=== PATIENT | male | born 1970 | race Two or more races ===

== ENCOUNTER 2019-03-22 09:00 | Inpatient (IN) | payer OTHER ==
[2019-03-22] MEDS ORDERED: THIAMINE HCL 200 MG/2 ML VIAL IVPB ONE (09:50)
[2019-03-22] MEDS ORDERED: FOLIC ACID INJECTION - 1 MG, THIAMINE HCL 100 MG, MULTIVIT INJECTION ADULT 10 ML in SOD... IVPB ONE (09:50)
[2019-03-22] MEDS ORDERED: LORazepam 2 MG/ML SDV VIAL ONE ×2 (10:13→11:25)
[2019-03-22] MEDS ORDERED: ONDANSETRON 4 MG/2 ML VIAL IVPB ONE (10:14)
[2019-03-22] MEDS ORDERED: ONDANSETRON 4 MG/2 ML VIAL ONE (10:15)
[2019-03-22 10:41] LABS: HEMATOCRIT 33.4 % (35.4-49); HEMOGLOBIN 12.7 GM/dL (11.7-16.9); MCH 37.7 pg (25.7-33.7); MCHC 38.1 g/dl (32.0-35.9); MEAN PLT VOLUME 10.4 fl (7.5-11.1); PLATELET COUNT 116 K/MM3 (134-434); RBC 3.38 M/mm3 (4.00-5.60); RDW 13.8 % (11.9-15.9); WHITE BLOOD COUNT 9.6 K/mm3 (4.0-10.0)
[2019-03-22 10:58] LABS: INR 0.97 (0.83-1.09); PROTHROMBIN TIME (PATIENT) 11.4 SEC (9.7-13.0)
[2019-03-22 11:21] LABS: ALBUMIN 2.5 g/dl (3.4-5.0); ALK PHOS 218 U/L (45-117); ANION GAP 11 MMOL/L (8-16); BILIRUBIN,TOTAL 2.6 mg/dL (0.2-1); BLOOD UREA NITROGEN 17.1 mg/dL (7-18); CHLORIDE 88 mmol/L (98-107); CO2 29 mmol/L (21-32); CREATININE 0.7 mg/dL (0.55-1.3); GLUCOSE,RANDOM 218 mg/dL (74-106); LIPASE 1207 U/L (73-393); MAGNESIUM 1.9 mg/dL (1.8-2.4); POTASSIUM 3.2 mmol/L (3.5-5.1); SODIUM 128 mmol/L (136-145); TOT PROT 5.7 g/dl (6.4-8.2)
[2019-03-22 11:42] LABS: EPI CELLS 7.6 /HPF (0-5/HPF); HYALINE CASTS 18 /lpf (0-8); PH,URINE 5.5 (5.0-8.0); URINE APPEARANCE CLOUDY; URINE BACTERIA 51.6 /hpf (NEGATIVE); URINE BILIRUBIN 2+ (NEGATIVE); URINE COLOR ORANGE; URINE GLUCOSE (UA) NEGATIVE (NEGATIVE); URINE KETONE TRACE (NEGATIVE); URINE LEUK ESTERASE TRACE (NEGATIVE); URINE NITRITE POSITIVE (NEGATIVE); URINE PROTEIN 3+ (NEGATIVE); URINE WBC 2 /hpf (0-5)
[2019-03-22] MEDS ORDERED: POTASSIUM CHLORIDE TABS 20 MEQ TABLET.ER (FP) PO ONE ×2 (11:43→12:07)
[2019-03-22] MEDS ORDERED: CEFTRIAXONE 1,000 MG in DEXTROSE 5%-WATER - 50 ML IVPB ONE (11:44)
[2019-03-22 11:52] LABS: CALCIUM 5.6 mg/dL (8.5-10.1)
[2019-03-22] MEDS ORDERED: LACTATED RINGERS SOLUTION 1,000 ML/1,000 ML INFUS.BAG IV STA (11:54)
[2019-03-22 12:03] LABS: URINE RBC 8.6 /hpf (0-4)
[2019-03-22] MEDS ORDERED: THIAMINE HCL 200 MG/2 ML VIAL ONE (12:07)
[2019-03-22] MEDS ORDERED: CEFTRIAXONE 1 GM/50 ML BAG ONE (12:07)
[2019-03-22] MEDS ORDERED: CALCIUM GLUCONATE 10% - 1,000 MG/10 ML VIAL IVPUSH ONE (12:26)
[2019-03-22 13:14] LABS: ANISOCYTOSIS 1+; MACROCYTOSIS 1+; OVALOCYTE 1+; PLATELET ESTIMATE DECREASED; TARGET CELLS 1+
--- NOTE | 2019-03-22 13:20 | PDOC ---
Documentation entered by Disha Nolen SCRIBE, acting as scribe for Everette Eid MD. Everette Eid MD: This documentation has been prepared by the Tamanna bejarano Sammi, SCRIBE, under my direction and personally reviewed by me in its entirety. I confirm that the documentation accurately reflects all work, treatment, procedures, and medical decision making performed by me. History of Present Illness - General Chief Complaint: Pain Stated Complaint: ABD PAIN / VOMITTING/ALCOHOL WITHDRAWAL Time Seen by Provider: 03/22/19 09:39 - History of Present Illness Initial Comments: 03/22/19 10:03 The patient is a 48 year old male with PMH of alcohol abuse who presents with 1 week of withdrawal like symptoms since recent alcohol cessation. He reports diffuse abdominal pain, mostly to the upper quadrants, constant and sharp in quality. He notes nonbilious, nonbloody vomiting, with anorexia and decreased PO. The patient also reports upper extremity tremors. He reports he previously tried quitting 2 years ago without success. The patient is very anxious upon giving history. Past History - Past Medical History Allergies/Adverse Reactions: Allergies Allergy/AdvReac Type Severity Reaction Status Date / Time No Known Allergies Allergy Verified 03/22/19 09:29 COPD: No Other medical history: alcohol abuse - Suicide/Smoking/Psychosocial Hx Smoking History: Never smoked Information on smoking cessation initiated: No Hx Alcohol Use: Yes (last use a week ago) Drug/Substance Use Hx: No Review of Systems - Review of Systems Comments:: 03/22/19 10:05 CONSTITUTIONAL: (+)tremors. No fever, no chills, no fatigue EYES: No visual changes ENT: No ear pain, no sore throat CARDIOVASCULAR: No chest pain, no palpitations RESPIRATORY: No cough, no SOB GI: (+)abdominal pain (+)vomit. No constipation, no diarrhea GENITOURINARY: No dysuria, no frequency, no hematuria MUSKULOSKELETAL: No backpain, no joint pain, no myalgias SKIN: No rash NEURO: No headache *Physical Exam - Vital Signs Last Vital Signs Temp Pulse Resp BP Pulse Ox 99 F 107 H 19 152/99 99 03/22/19 09:27 03/22/19 09:27 03/22/19 09:27 03/22/19 09:27 03/22/19 09:27 Heart Score/ECG Review - ECG Impressions Comment:: 03/22/19 11:35 normal sinus rhythm normal ECG ED Treatment Course - LABORATORY CBC & Chemistry Diagram: 03/22/19 10:29 03/22/19 10:29 - ADDITIONAL ORDERS Additional order review: Laboratory Results 03/22/19 03/22/19 03/22/19 10:52 10:29 10:29 PT with INR 11.40 INR 0.97 Sodium Potassium Chloride Carbon Dioxide Anion Gap BUN Creatinine Est GFR (CKD-EPI)AfAm Est GFR (CKD-EPI)NonAf Random Glucose Calcium Magnesium Cancelled Total Bilirubin AST ALT Alkaline Phosphatase Total Protein Albumin Lipase Cancelled Urine Color [place] Urine Appearance Cloudy Urine pH 5.5 Ur Specific [place] 1.041 H Urine Protein 3+ H Urine Glucose (UA) Negative Urine Ketones Trace H Urine Blood 1+ H Urine Nitrite Positive H Urine Bilirubin 2+ H Urine Urobilinogen 1.0 Ur Leukocyte Esterase Trace Urine WBC (Auto) 2 Urine RBC (Auto) 8.6 Urine Casts (Auto) 18 U Pathogenic Cast Auto None seen U Epithel Cells (Auto) 7.6 Urine Bacteria (Auto) 51.6 03/22/19 10:29 PT with INR INR Sodium 128 L Potassium 3.2 L Chloride 88 L Carbon Dioxide 29 Anion Gap 11 BUN 17.1 Creatinine 0.7 Est GFR (CKD-EPI)AfAm 130.25 Est GFR (CKD-EPI)NonAf 112.38 Random Glucose 218 H Calcium 5.6 L* Magnesium 1.9 Total Bilirubin 2.6 H AST No Result Required. ALT No Result Required. Alkaline Phosphatase 218 H Total Protein 5.7 L Albumin 2.5 L Lipase 1207 H Urine Color Urine Appearance Urine pH Ur Specific [place] Urine Protein Urine Glucose (UA) Urine Ketones Urine Blood Urine Nitrite Urine Bilirubin Urine Urobilinogen Ur Leukocyte Esterase Urine WBC (Auto) Urine RBC (Auto) Urine Casts (Auto) U Pathogenic Cast Auto U Epithel Cells (Auto) Urine Bacteria (Auto) 03/22/19 10:29 RBC 3.38 L MCV 99.0 H MCHC 38.1 H RDW 13.8 MPV 10.4 Neutrophils % No Result Required. Lymphocytes % No Result Required. - RADIOLOGY Radiology Studies Ordered: Category Date Time Status ABDOMEN & PELVIS CT WITH CONTR [CT] Stat CT Scan 03/22/19 11:55 Ordered - Medications Given in the ED: ED Medications Discontinued Medications Generic Name Dose Route Start Last Admin Trade Name Jazzmine PRN Reason Stop Dose Admin Lactated Ringer's 1,000 ml in 1,000 mls @ 1,000 mls/hr 03/22/19 11:54 12:16 Lactated Ringers Solution IV 03/22/19 12:53 1,000 mls/hr ONCE STA Administration Lorazepam 2 mg 03/22/19 09:50 03/22/19 10:27 Ativan Injection - IVPUSH 03/22/19 09:51 2 mg ONCE ONE Administration Lorazepam 2 mg 03/22/19 11:21 03/22/19 11:36 Ativan Injection - IVPUSH 03/22/19 11:22 2 mg ONCE ONE Administration Ondansetron HCl 8 mg 03/22/19 10:14 03/22/19 10:27 Zofran Injection IVPB 03/22/19 10:15 8 mg ONCE ONE Administration Potassium Chloride 40 meq 03/22/19 11:43 03/22/19 12:16 K-Dur - PO 03/22/19 11:44 40 meq ONCE ONE Administration Thiamine HCl 200 mg 03/22/19 09:50 03/22/19 11:50 Vitamin B1 Injection - IVPB 03/22/19 09:51 200 mg ONCE ONE Administration Medical Decision Making - Medical Decision Making 03/22/19 13:16 pt is anxious appearing 48 y/o male with hx/o etoh abuse who presents with signs ad sxs of acute etoh withdrawal and possible acute pancreatitis. will administer ativan for withdrawal to mild sedation and resolution of tachycardia and tremors. will administer thiamine, mvi, folic acid. will agressively rescuss with iv fluids. will address electrolyte abnormalities. will obtain ct abd -eplvis to r/o pseudocyst. will admit. *DC/Admit/Observation/Transfer Diagnosis at time of Disposition: Hypokalemia, Hypocalcemia Acute pancreatitis Qualifiers: Pancreatitis type: alcohol induced Acute pancreatitis complication: unspecified Qualified Code(s): K85.20 - Alcohol induced acute pancreatitis without necrosis or infection Alcohol withdrawal Qualifiers: Complication of substance-induced condition: with unspecified complication Qualified Code(s): F10.239 - Alcohol dependence with withdrawal, unspecified - Discharge Dispostion Condition at time of disposition: Fair Decision to Admit order: Yes - Referrals - Patient Instructions - Post Discharge Activity
[2019-03-22] MEDS ORDERED: CALCIUM GLUCONATE 10% - 1,000 MG/10 ML VIAL ONE (14:37)
--- NOTE | 2019-03-22 15:08 | HP ---
CHIEF COMPLAINT: abdominal pain for a week, worse yesterday with vomiting and today PCP: none HISTORY OF PRESENT ILLNESS: Patient is a 48 year old male with a significant past medical history of ETOH abuse. He reports that he had a withdrawal seizure 2 years ago and non since. He tells me his last drink was last week and cut out drinking on his own because he started to feel worse in the last few weeks. He has been weaker in the last two days and was not able to get up and go to work. He began vomiting all day yesterday, and all day today and was unable to keep anything down. He says the color of his vomitus was yellow, and denies coughing up blood. He reports diffuse abdominal pain, mostly to the upper quadrants, constant and sharp in quality. He notes anorexia and decreased PO intake. The patient also reports upper extremity tremors. ER course was notable for: (1) platelets 116 (2) CTAP: acute pancreatitis, some small area of necrosis (3) NA 128 (4) K. 3.2 (5) 88 cloride (6) CA 5.6 (7) unable to get liver enzymes 2/2 to lipemic sample. will re-attempt in am. 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 ETOH abuse, withdrawal seizures. Social History: Smoking: denies Alcohol: drank 1 week ago, has stopped on his own. Drugs: denies. Family History: Allergies No Known Allergies Allergy (Verified 03/22/19 09:29) PHYSICAL EXAMINATION Vital Signs - 24 hr 03/22/19 03/22/19 09:27 10:22 Temperature 99 F Pulse Rate 107 H Pulse Rate [ 118 H Right Radial] Respiratory 19 18 Rate Blood Pressure 152/99 Blood Pressure 117/79 [Left Arm] O2 Sat by Pulse 99 98 Oximetry (%) GENERAL: Awake, alert, and fully oriented, anxious HEAD: Normal with no signs of trauma. right eye trauma/blindness 2 years ago - work accident. EYES: right eye trauma/blindness 2 years ago - work accident. EARS, NOSE, THROAT: Ears normal, nares patent, oropharynx clear without exudates. dry mucous membranes. NECK: Normal range of motion, supple without lymphadenopathy, JVD, or masses. LUNGS: Breath sounds equal, clear to auscultation bilaterally. HEART: Regular rate and rhythm ABDOMEN: Soft, nontender, not distended, normoactive bowel sounds, no guarding, no rebound, no masses. No hepatomegaly or splenomegaly. MUSCULOSKELETAL: Normal range of motion at all joints. No bony deformities or tenderness. No CVA tenderness. UPPER EXTREMITIES: No peripheral edema. left upper arm mass? lipoma? LOWER EXTREMITIES: No peripheral edema. NEUROLOGICAL: Normal speech. Normal gait. PSYCHIATRIC: anxious, tremorous Laboratory Results - last 24 hr 03/22/19 03/22/19 03/22/19 10:29 10:29 10:29 WBC 9.6 RBC 3.38 L Hgb 12.7 Hct 33.4 L MCV 99.0 H MCH 37.7 H MCHC 38.1 H RDW 13.8 Plt Count 116 L MPV 10.4 Neutrophils % No Result Required. Neutrophils % (Manual) 68.3 Band Neutrophils % 6.9 Lymphocytes % No Result Required. Lymphocytes % (Manual) 12.9 Monocytes % (Manual) 11 H Eosinophils % (Manual) 0.0 Basophils % (Manual) 0.0 Myelocytes % (Man) 0 Promyelocytes % (Man) 0 Blast Cells % (Manual) 0 Nucleated RBC % 0 Metamyelocytes 0 Hypochromia 0 Platelet Estimate Decreased Polychromasia 0 Poikilocytosis 0 Anisocytosis 1+ Microcytosis 0 Macrocytosis 1+ Target Cells 1+ Ovalocytes 1+ PT with INR INR Sodium 128 L Potassium 3.2 L Chloride 88 L Carbon Dioxide 29 Anion Gap 11 BUN 17.1 Creatinine 0.7 Est GFR (CKD-EPI)AfAm 130.25 Est GFR (CKD-EPI)NonAf 112.38 Random Glucose 218 H Calcium 5.6 L* Magnesium 1.9 Cancelled Total Bilirubin 2.6 H AST No Result Required. ALT No Result Required. Alkaline Phosphatase 218 H Total Protein 5.7 L Albumin 2.5 L Lipase 1207 H Cancelled Urine Color Urine Appearance Urine pH Ur Specific [place] Urine Protein Urine Glucose (UA) Urine Ketones Urine Blood Urine Nitrite Urine Bilirubin Urine Urobilinogen Ur Leukocyte Esterase Urine WBC (Auto) Urine RBC (Auto) Urine Casts (Auto) U Pathogenic Cast Auto U Epithel Cells (Auto) Urine Bacteria (Auto) 03/22/19 03/22/19 10:29 10:52 WBC RBC Hgb Hct MCV MCH MCHC RDW Plt Count MPV Neutrophils % Neutrophils % (Manual) Band Neutrophils % Lymphocytes % Lymphocytes % (Manual) Monocytes % (Manual) Eosinophils % (Manual) Basophils % (Manual) Myelocytes % (Man) Promyelocytes % (Man) Blast Cells % (Manual) Nucleated RBC % Metamyelocytes Hypochromia Platelet Estimate Polychromasia Poikilocytosis Anisocytosis Microcytosis Macrocytosis Target Cells Ovalocytes PT with INR 11.40 INR 0.97 Sodium Potassium Chloride Carbon Dioxide Anion Gap BUN Creatinine Est GFR (CKD-EPI)AfAm Est GFR (CKD-EPI)NonAf Random Glucose Calcium Magnesium Total Bilirubin AST ALT Alkaline Phosphatase Total Protein Albumin Lipase Urine Color [place] Urine Appearance Cloudy Urine pH 5.5 Ur Specific [place] 1.041 H Urine Protein 3+ H Urine Glucose (UA) Negative Urine Ketones Trace H Urine Blood 1+ H Urine Nitrite Positive H Urine Bilirubin 2+ H Urine Urobilinogen 1.0 Ur Leukocyte Esterase Trace Urine WBC (Auto) 2 Urine RBC (Auto) 8.6 Urine Casts (Auto) 18 U Pathogenic Cast Auto None seen U Epithel Cells (Auto) 7.6 Urine Bacteria (Auto) 51.6 ASSESSMENT/PLAN: Patient is a 48 year old male with a significant past medical history of ETOH abuse who comes in with weakness, abdominal pain with vomiting and found to hve acute pancreatitis with a lipase of 1207 along with small necrosis of the pancreas. . Problem List - Problem (1) Acute pancreatitis Assessment/Plan: CTAP 03/22/19: acute pancreatitis with small area of necrosis per imaging. Start on meropenem with aggressive IV hydration Keep NPO GI/Surgery consulted for further plans Code(s): K85.90 - ACUTE PANCREATITIS WITHOUT NECROSIS OR INFECTION, UNSP Qualifiers: Pancreatitis type: alcohol induced Acute pancreatitis complication: unspecified Qualified Code(s): K85.20 - Alcohol induced acute pancreatitis without necrosis or infection (2) Necrosis of pancreas Code(s): K86.89 - OTHER SPECIFIED DISEASES OF PANCREAS (3) Thrombocytopenia Assessment/Plan: Monitor with daily labs in the abstinence of alcohol Code(s): D69.6 - THROMBOCYTOPENIA, UNSPECIFIED (4) Elevated lipase Assessment/Plan: patient with elevated lipase of 1207 on admission, found to have acute pancreatitis on imaging with necrosis. GI and surgery consulted Code(s): R74.8 - ABNORMAL LEVELS OF OTHER SERUM ENZYMES (5) Proteinuria Assessment/Plan: +3 urine protein on UA. repeat UA Code(s): R80.9 - PROTEINURIA, UNSPECIFIED (6) Alcohol withdrawal Assessment/Plan: Denies recent drinking, quit drinking on his own 1 week about w/o seizure activity per patient. moderate CIWA score presently but will need monitoring for ETOH w/drawal. has ativan ordered prn. given banana bag and will continue with IVF hydration has electrolyte imbalance and cmp to be repeated after banana bag given. Code(s): F10.239 - ALCOHOL DEPENDENCE WITH WITHDRAWAL, UNSPECIFIED Qualifiers: Complication of substance-induced condition: with unspecified complication Qualified Code(s): F10.239 - Alcohol dependence with withdrawal, unspecified (7) Hypocalcemia Assessment/Plan: monitor daily Code(s): E83.51 - HYPOCALCEMIA (8) Hypokalemia Code(s): E87.6 - HYPOKALEMIA (9) Hyponatremia Assessment/Plan: repeat cmp. currently low sodium at 128. Code(s): E87.1 - HYPO-OSMOLALITY AND HYPONATREMIA (10) Prophylactic measure Assessment/Plan: fen LR @ 100 NPO ice chips intermittently full code protonix Code(s): Z29.9 - ENCOUNTER FOR PROPHYLACTIC MEASURES, UNSPECIFIED Visit type - Emergency Visit Emergency Visit: Yes ED Registration Date: 03/22/19 Care time: The patient presented to the Emergency Department on the above date and was hospitalized for further evaluation of their emergent condition. - New Patient This patient is new to me today: No - Critical Care Critical Care patient: No CIWA Score Nausea/Vomitin-Int. Nausea w/Dry Heave Muscle Tremors: 1-None Visible, but [place] Anxiety: 1-Mildly Anxious Agitation: 0-Normal Activity Paroxysmal Sweats: No Perspiration Orientation: 0-Oriented Tacttile Disturbances: 0-None Auditory Disturbances: 0-None Visual Disturbances: 0-None Headache: 0-None Present CIWA-Ar Total Score: 6 - Admission Criteria [facility]ASAS Guidelines: Admission for Medically Managed Detox: Requires at least one of the followin. CIWA greater than 12 2. Seizures within the past 24 hours 3. Delirium tremens within the past 24 hours 4. Hallucinations within the past 24 hours 5. Acute intervention needed for co occurring medical disorder 6. Acute intervention needed for co occurring psychiatric disorder 7. Severe withdrawal that cannot be handled at a lower level of care (continued vomiting, continued diarrhea, abnormal vital signs) requiring intravenous medication and/or fluids 8.
--- NOTE | 2019-03-22 15:08 | EKG ---
Test Reason : Blood Pressure : / mmHG Vent. Rate : 100 BPM Atrial Rate : 100 BPM P-R Int : 164 ms QRS Dur : 096 ms QT Int : 346 ms P-R-T Axes : 033 034 039 degrees QTc Int : 446 ms NORMAL SINUS RHYTHM NORMAL ECG NO PREVIOUS ECGS AVAILABLE Confirmed by DAWSON SEBASTIAN MD ([id number]) on 03/22/2019 3:07:31 PM Referred By: Confirmed By:DAWSON SEBASTIAN MD
[2019-03-22] MEDS: LACTATED RINGERS SOLUTION 1,000 ML/1,000 ML INFUS.BAG IV SCH (15:11)
[2019-03-22] MEDS ORDERED: LORazepam 2 MG/ML SDV VIAL IVPUSH PRN (16:08)
[2019-03-22] MEDS ORDERED: MEROPENEM 1 GM in DEXTROSE 5%-WATER 100 ML IVPB ONE ×2 (16:22→16:25)
[2019-03-22] MEDS ORDERED: PNEUMOC 13-VAL CONJ-DIP CRM/PF 0.5 ML DISP.SYRIN IM ONE (16:31)
[2019-03-22] MEDS ORDERED: PNEUMOCOCCAL 23 VACCINE 0.5 ML VIAL IM ONE (16:45)
--- NOTE | 2019-03-22 17:02 | CONSULT ---
- Consultation REQUESTING PROVIDER: Emiliana Devine NP CONSULT REQUEST: We have been asked to surgically evaluate this patient for acute pancreatitis. PCP:Emiliana Devine NP HISTORY OF PRESENT ILLNESS: MARY who is a 48 y/o male w/a h/o EtOHism who presented 1 week after his last EtOH intake w/nausea and vomiting and generalized abdominal pain; he relates no other hx. PMHx: PSHx: Allergies Allergy/AdvReac Type Severity Reaction Status Date / Time No Known Allergies Allergy Verified 03/22/19 09:29 REVIEW OF SYSTEMS: CONSTITUTIONAL: Absent: fever, chills, diaphoresis, generalized weakness, malaise, loss of appetite, weight change CARDIOVASCULAR: Absent: chest pain, syncope, palpitations, irregular heart rate, lightheadedness , peripheral edema RESPIRATORY: Absent: cough, shortness of breath, dyspnea with exertion, wheezing, stridor, hemoptysis GASTROINTESTINAL: Absent: abdominal pain, abdominal distension, nausea, vomiting, diarrhea, constipation, melena, hematochezia GENITOURINARY: Absent: dysuria, frequency, urgency, hesitancy, hematuria, flank pain, genital pain MUSCULOSKELETAL: Absent: myalgia, arthralgia, joint swelling, back pain, neck pain SKIN: Absent: rash, itching, pallor HEMATOLOGIC/IMMUNOLOGIC: Absent: easy bleeding, easy bruising, lymphadenopathy NEUROLOGIC: Absent: headache, focal weakness, paresthesias, dizziness, unsteady gait, seizure, mental status changes, bladder or bowel incontinence PSYCHIATRIC: Absent: anxiety, depression, suicidal or homicidal ideation, hallucinations. PHYSICAL EXAM: GENERAL: Awake, alert, and fully oriented, in no acute distress. HEAD: Normal with no signs of trauma. EYES: PERRL, sclera anicteric, conjunctiva clear. NECK: Normal ROM, supple without lymphadenopathy, JVD, or masses. LUNGS: Clear to auscultation bilat anteriorly. No wheezes, and no crackles. No accessory muscle use. HEART: Regular rate and rhythm. No murmurs ABDOMEN: Soft, nontender, not distended, normoactive bowel sounds, no guarding, no rebound, no masses. No organomegaly. MUSCULOSKELETAL: Normal ROM at all joints. No bony deformities or tenderness. No CVA tenderness. UPPER EXTREMITIES: 2+ pulses, warm, well-perfused. No cyanosis. Cap refill <2 seconds. No peripheral edema. LOWER EXTREMITIES: 2+ pulses, warm, well-perfused. No calf tenderness. No peripheral edema. NEUROLOGICAL: Normal speech, gait not observed. PSYCH: Cooperative. Good eye contact. Appropriate mood and affect. SKIN: Warm, dry, normal turgor, no rashes or lesions noted. Vital Signs Temperature 98.2 F 03/22/19 16:18 Pulse Rate 80 03/22/19 16:18 Respiratory Rate 18 03/22/19 16:18 Blood Pressure 144/87 03/22/19 16:18 O2 Sat by Pulse Oximetry (%) 98 03/22/19 15:09 Lab Results WBC 9.6 K/mm3 (4.0-10.0) 03/22/19 10:29 RBC 3.38 M/mm3 (4.00-5.60) L 03/22/19 10:29 Hgb 12.7 GM/dL (11.7-16.9) 03/22/19 10:29 Hct 33.4 % (35.4-49) L 03/22/19 10:29 MCV 99.0 fl (80-96) H 03/22/19 10:29 MCHC 38.1 g/dl (32.0-35.9) H 03/22/19 10:29 RDW 13.8 % (11.9-15.9) 03/22/19 10:29 Plt Count 116 K/MM3 (134-434) L 03/22/19 10:29 Sodium 128 mmol/L (136-145) L 03/22/19 10:29 Potassium 3.2 mmol/L (3.5-5.1) L 03/22/19 10:29 Chloride 88 mmol/L (98-107) L 03/22/19 10:29 Carbon Dioxide 29 mmol/L (21-32) 03/22/19 10:29 Anion Gap 11 MMOL/L (8-16) 03/22/19 10:29 BUN 17.1 mg/dL (7-18) 03/22/19 10:29 Creatinine 0.7 mg/dL (0.55-1.3) 03/22/19 10:29 Random Glucose 218 mg/dL (74-106) H 03/22/19 10:29 Calcium 5.6 mg/dL (8.5-10.1) L* 03/22/19 10:29 INR 0.97 (0.83-1.09) 03/22/19 10:29 CT a/p reviewed and c/w acute pancraeatitis and related findings including possible focal necrosis. IMP: EtOH induced acute pancreatitis PLAN: Suggest NPO/IVF/serial exams and blood work; will need f/u x-sectional imaging (CT scan ); check abdominal US to r/o cholelithiasis; will f/u. Vic Shipley MD FACS
[2019-03-22] MEDS ORDERED: MEROPENEM 1 GM VIAL (RESTRICTED TO ID) IVPB ONE (17:37)
[2019-03-22] MEDS ORDERED: DEXTROSE 5%-WATER 100 ML IVPB ONE (17:37)
[2019-03-22 20:43] LABS: ALBUMIN 2.3 g/dl (3.4-5.0); ALK PHOS 199 U/L (45-117); ANION GAP 9 MMOL/L (8-16); BILIRUBIN,TOTAL 2.4 mg/dL (0.2-1); BLOOD UREA NITROGEN 11.8 mg/dL (7-18); CHLORIDE 92 mmol/L (98-107); CO2 29 mmol/L (21-32); CREATININE 0.6 mg/dL (0.55-1.3); GLUCOSE,RANDOM 154 mg/dL (74-106); POTASSIUM 3.7 mmol/L (3.5-5.1); SODIUM 131 mmol/L (136-145); TOT PROT 5.1 g/dl (6.4-8.2)
[2019-03-22 20:53] LABS: CALCIUM 6.9 mg/dL (8.5-10.1)
--- NOTE | 2019-03-22 22:03 | HOSP ---
Subjective - Review of Symptoms Events since last encounter: Hospitalist Encounter Notified by the RN that the lab called for a critical value Ca 6.9 The patient's albumin is 2.3. Calcium corrected is 8.3 Per RN patient is asymptomatic Patient's Ca 5.6 earlier Calcium gluconate 1000mg IV was given in the ED No further orders at this time Will continue to monitor for spasms, tetany and seizures d/w RN Physical Examination Vital Signs: Vital Signs Temperature 98.4 F 03/22/19 18:58 Pulse Rate 92 H 03/22/19 18:58 Respiratory Rate 18 03/22/19 18:58 Blood Pressure 146/89 03/22/19 18:58 O2 Sat by Pulse Oximetry (%) 98 03/22/19 15:09 Labs: CBC, BMP 03/22/19 10:29 03/22/19 17:45 Laboratory Results - last 24 hr 03/22/19 03/22/19 03/22/19 10:29 10:29 10:29 WBC 9.6 RBC 3.38 L Hgb 12.7 Hct 33.4 L MCV 99.0 H MCH 37.7 H MCHC 38.1 H RDW 13.8 Plt Count 116 L MPV 10.4 Neutrophils % No Result Required. Neutrophils % (Manual) 68.3 Band Neutrophils % 6.9 Lymphocytes % No Result Required. Lymphocytes % (Manual) 12.9 Monocytes % (Manual) 11 H Eosinophils % (Manual) 0.0 Basophils % (Manual) 0.0 Myelocytes % (Man) 0 Promyelocytes % (Man) 0 Blast Cells % (Manual) 0 Nucleated RBC % 0 Metamyelocytes 0 Hypochromia 0 Platelet Estimate Decreased Polychromasia 0 Poikilocytosis 0 Anisocytosis 1+ Microcytosis 0 Macrocytosis 1+ Target Cells 1+ Ovalocytes 1+ PT with INR INR Sodium 128 L Potassium 3.2 L Chloride 88 L Carbon Dioxide 29 Anion Gap 11 BUN 17.1 Creatinine 0.7 Est GFR (CKD-EPI)AfAm 130.25 Est GFR (CKD-EPI)NonAf 112.38 POC Glucometer Random Glucose 218 H Calcium 5.6 L* Magnesium 1.9 Cancelled Total Bilirubin 2.6 H AST No Result Required. ALT No Result Required. Alkaline Phosphatase 218 H Creatine Kinase Creatine Kinase Index CK-MB (CK-2) Total Protein 5.7 L Albumin 2.5 L Lipase 1207 H Cancelled Urine Color Urine Appearance Urine pH Ur Specific [place] Urine Protein Urine Glucose (UA) Urine Ketones Urine Blood Urine Nitrite Urine Bilirubin Urine Urobilinogen Ur Leukocyte Esterase Urine WBC (Auto) Urine RBC (Auto) Urine Casts (Auto) U Pathogenic Cast Auto U Epithel Cells (Auto) Urine Bacteria (Auto) 03/22/19 03/22/19 03/22/19 10:29 10:52 17:45 WBC RBC Hgb Hct MCV MCH MCHC RDW Plt Count MPV Neutrophils % Neutrophils % (Manual) Band Neutrophils % Lymphocytes % Lymphocytes % (Manual) Monocytes % (Manual) Eosinophils % (Manual) Basophils % (Manual) Myelocytes % (Man) Promyelocytes % (Man) Blast Cells % (Manual) Nucleated RBC % Metamyelocytes Hypochromia Platelet Estimate Polychromasia Poikilocytosis Anisocytosis Microcytosis Macrocytosis Target Cells Ovalocytes PT with INR 11.40 INR 0.97 Sodium 131 L Potassium 3.7 Chloride 92 L Carbon Dioxide 29 Anion Gap 9 BUN 11.8 Creatinine 0.6 Est GFR (CKD-EPI)AfAm 138.77 Est GFR (CKD-EPI)NonAf 119.73 POC Glucometer Random Glucose 154 H Calcium 6.9 L* Magnesium Total Bilirubin 2.4 H AST No Result Required. ALT No Result Required. Alkaline Phosphatase 199 H Creatine Kinase Creatine Kinase Index CK-MB (CK-2) Total Protein 5.1 L Albumin 2.3 L Lipase Urine Color [place] Urine Appearance Cloudy Urine pH 5.5 Ur Specific [place] 1.041 H Urine Protein 3+ H Urine Glucose (UA) Negative Urine Ketones Trace H Urine Blood 1+ H Urine Nitrite Positive H Urine Bilirubin 2+ H Urine Urobilinogen 1.0 Ur Leukocyte Esterase Trace Urine WBC (Auto) 2 Urine RBC (Auto) 8.6 Urine Casts (Auto) 18 U Pathogenic Cast Auto None seen U Epithel Cells (Auto) 7.6 Urine Bacteria (Auto) 51.6 03/22/19 03/22/19 17:45 21:04 WBC RBC Hgb Hct MCV MCH MCHC RDW Plt Count MPV Neutrophils % Neutrophils % (Manual) Band Neutrophils % Lymphocytes % Lymphocytes % (Manual) Monocytes % (Manual) Eosinophils % (Manual) Basophils % (Manual) Myelocytes % (Man) Promyelocytes % (Man) Blast Cells % (Manual) Nucleated RBC % Metamyelocytes Hypochromia Platelet Estimate Polychromasia Poikilocytosis Anisocytosis Microcytosis Macrocytosis Target Cells Ovalocytes PT with INR INR Sodium Potassium Chloride Carbon Dioxide Anion Gap BUN Creatinine Est GFR (CKD-EPI)AfAm Est GFR (CKD-EPI)NonAf POC Glucometer 81 Random Glucose Calcium Magnesium Total Bilirubin AST ALT Alkaline Phosphatase Creatine Kinase 190 Creatine Kinase Index 1.0 CK-MB (CK-2) 1.9 Total Protein Albumin Lipase Urine Color Urine Appearance Urine pH Ur Specific [place] Urine Protein Urine Glucose (UA) Urine Ketones Urine Blood Urine Nitrite Urine Bilirubin Urine Urobilinogen Ur Leukocyte Esterase Urine WBC (Auto) Urine RBC (Auto) Urine Casts (Auto) U Pathogenic Cast Auto U Epithel Cells (Auto) Urine Bacteria (Auto)
[2019-03-23] MEDS: LACTATED RINGERS SOLUTION 1,000 ML/1,000 ML INFUS.BAG IV SCH ×2 (01:58→12:28)
[2019-03-23] MEDS: IMIPENEM/CILASTATIN SODIUM 500 MG in SODIUM CHLORIDE 100 ML IVPB SCH ×3 (01:59→17:13)
[2019-03-23] MEDS ORDERED: DEXTROSE 50%-WATER - 25 GM/50 ML VIAL IVPUSH ONE (07:01)
[2019-03-23] MEDS ORDERED: DEXTROSE 50%-WATER 25 GM/50 ML DISP.SYRIN ONE (07:01)
[2019-03-23] MEDS ORDERED: PT OWN MED DRAWER 7, Y5N ONE ×2 (09:32→16:56)
--- NOTE | 2019-03-23 11:22 | PN ---
Progress Note, Physician Chief Complaint: still having abdominal pain with nausea, no vomiting has been NPO Denies headaches, still having some tremors (upper body), but no headaches, no vomiting or hallucinations. History of Present Illness: Patient is a 48 year old male with a significant past medical history of ETOH abuse. He reports that he had a withdrawal seizure 2 years ago and non since. He tells me his last drink was last week and cut out drinking on his own because he started to feel worse in the last few weeks. He has been weaker in the last two days and was not able to get up and go to work. He began vomiting two days prior to admission and was unable to keep anything down. He says the color of his vomitus was yellow, and denies coughing up blood. He reports diffuse abdominal pain, mostly to the upper quadrants, constant and sharp in quality. He notes anorexia and decreased PO intake. The patient also reports upper extremity tremors. ER course was notable for: (1) platelets 116 (2) CTAP: acute pancreatitis, some small area of necrosis (3) NA 128 (4) K. 3.2 (5) 88 cloride (6) CA 5.6 (7) unable to get liver enzymes 2/2 to lipemic sample. will re-attempt in am. as well as a lipid panel (8) + urine protein (9) 1207 lipase - Current Medication List Current Medications: Active Medications Lactated Ringer's (Lactated Ringers Solution) 1,000 ml in 1,000 mls @ 100 mls/ hr IV ASDIR LAURA Last Admin: 03/23/19 01:58 Dose: 100 mls/hr Imipenem/Cilastatin Sodium 500 (mg/ Sodium Chloride) 100 mls @ 100 mls/hr IVPB Q8H-IV LAURA; Protocol Last Admin: 03/23/19 10:37 Dose: 100 mls/hr Lorazepam (Ativan Injection -) 1 mg IVPUSH Q6H PRN PRN Reason: WITHDRAWAL(CONT SUBST) - Objective Vital Signs: Vital Signs Temperature 98.9 F 03/23/19 07:51 Pulse Rate 98 H 03/23/19 07:51 Respiratory Rate 15 03/23/19 07:51 Blood Pressure 117/50 L 03/23/19 07:51 O2 Sat by Pulse Oximetry (%) 98 03/22/19 21:00 Constitutional: Yes: No Distress, Calm Eyes: Yes: Other (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) HENT: Yes: Atraumatic Neck: Yes: Supple Cardiovascular: Yes: Regular Rate and Rhythm Respiratory: Yes: Regular, CTA Bilaterally Gastrointestinal: Yes: Soft, Tenderness ...Rectal Exam: Yes: Deferred Genitourinary: Yes: WNL Musculoskeletal: Yes: WNL Extremities: Yes: WNL Edema: No Peripheral Pulses WNL: Yes Integumentary: Yes: WNL Neurological: Yes: Alert, Oriented ...Motor Strength: WNL Psychiatric: Yes: Alert, Oriented Labs: CBC, BMP 03/22/19 10:29 03/22/19 17:45 INR, PTT INR 0.97 (0.83-1.09) 03/22/19 10:29 Problem List - Problems (1) Hypertriglyceridemia Assessment/Plan: Triglyceridemia @ 1400 with elevated cholesterol levels elevated ast/alt patient with acute pancreatitis with small area of necrosis may need insulin drip, therefore transfer to ICU hematology consulted as may need plasmapheresis Code(s): E78.1 - PURE HYPERGLYCERIDEMIA (2) Acute pancreatitis Assessment/Plan: CTAP 03/22/19: acute pancreatitis with small area of necrosis per imaging. On Imipenem per ID. Continue IV hydration and maintain NPO for continued abdominal pain and nausea. GI/Surgery consulted for further plans. ID following. Code(s): K85.90 - ACUTE PANCREATITIS WITHOUT NECROSIS OR INFECTION, UNSP Qualifiers: Pancreatitis type: alcohol induced Acute pancreatitis complication: unspecified Qualified Code(s): K85.20 - Alcohol induced acute pancreatitis without necrosis or infection (3) Necrosis of pancreas Code(s): K86.89 - OTHER SPECIFIED DISEASES OF PANCREAS (4) Thrombocytopenia Assessment/Plan: Monitor with daily labs in the abstinence of alcohol. Maintain bleeding precautions. Code(s): D69.6 - THROMBOCYTOPENIA, UNSPECIFIED (5) Elevated lipase Assessment/Plan: patient with elevated lipase of 1207 on admission, now trending down to 774 He was found to have acute pancreatitis on imaging with small areas of necrosis. Continue to monitor lipase. Code(s): R74.8 - ABNORMAL LEVELS OF OTHER SERUM ENZYMES (6) Proteinuria Assessment/Plan: +3 urine protein on UA. repeat UA and monitor renal function Code(s): R80.9 - PROTEINURIA, UNSPECIFIED (7) Alcohol withdrawal Assessment/Plan: Denies recent drinking, quit drinking on his own 1 week about w/o seizure activity per patient. moderate CIWA score presently but will need monitoring for ETOH w/drawal. has ativan ordered prn. given banana bag and will continue with IVF hydration. Start thiamine, folate when no longer NPO. has electrolyte imbalance and cmp to be repeated after banana bag given. Code(s): F10.239 - ALCOHOL DEPENDENCE WITH WITHDRAWAL, UNSPECIFIED Qualifiers: Complication of substance-induced condition: with unspecified complication Qualified Code(s): F10.239 - Alcohol dependence with withdrawal, unspecified (8) Hypocalcemia Assessment/Plan: monitor daily. corrected calcium 8.3. Code(s): E83.51 - HYPOCALCEMIA (9) Hypokalemia Code(s): E87.6 - HYPOKALEMIA (10) Hyponatremia Assessment/Plan: repeat cmp. currently low sodium at 131. Code(s): E87.1 - HYPO-OSMOLALITY AND HYPONATREMIA (11) Mass of soft tissue of upper arm Assessment/Plan: left arm mass for a few years that has been increasing in size and causing pain and discomfort. Lipoma? Surgery following Code(s): R22.30 - LOCALIZED SWELLING, MASS AND LUMP, UNSPECIFIED UPPER LIMB (12) Prophylactic measure Assessment/Plan: fen ns with K @ 100. NPO ice chips intermittently heparin bid full code protonix Code(s): Z29.9 - ENCOUNTER FOR PROPHYLACTIC MEASURES, UNSPECIFIED Visit type - Emergency Visit Emergency Visit: Yes ED Registration Date: 03/22/19 Care time: The patient presented to the Emergency Department on the above date and was hospitalized for further evaluation of their emergent condition. - New Patient This patient is new to me today: No - Critical Care Critical Care patient: Yes Total Critical Care Time (in minutes): 60 Critical Care Statement: The care of this patient involved high complexity decision making to prevent further life threatening deterioration of the patient 's condition and/or to evaluate & treat vital organ system(s) failure or risk of failure. - Discharge Referral Referred to [facility] No CIWA Score Nausea/Vomitin-Int. Nausea w/Dry Heave Muscle Tremors: 1-None Visible, but [place] Anxiety: 1-Mildly Anxious Agitation: 1-Slight > Activity Paroxysmal Sweats: No Perspiration Orientation: 0-Oriented Tacttile Disturbances: 0-None Auditory Disturbances: 0-None Visual Disturbances: 0-None Headache: 0-None Present CIWA-Ar Total Score: 7 - Admission Criteria [facility] Guidelines: Admission for Medically Managed Detox: Requires at least one of the followin. CIWA greater than 12 2. Seizures within the past 24 hours 3. Delirium tremens within the past 24 hours 4. Hallucinations within the past 24 hours 5. Acute intervention needed for co occurring medical disorder 6. Acute intervention needed for co occurring psychiatric disorder 7. Severe withdrawal that cannot be handled at a lower level of care (continued vomiting, continued diarrhea, abnormal vital signs) requiring intravenous medication and/or fluids 8.
[2019-03-23 12:05] LABS: HEMATOCRIT 30.2 % (35.4-49); HEMOGLOBIN 10.3 GM/dL (11.7-16.9); MCH 33.2 pg (25.7-33.7); MCHC 34.1 g/dl (32.0-35.9); MEAN CELL VOLUME 97.4 fl (80-96); MEAN PLT VOLUME 9.3 fl (7.5-11.1); PLATELET COUNT 120 K/MM3 (134-434); RDW 13.8 % (11.9-15.9); WHITE BLOOD COUNT 7.9 K/mm3 (4.0-10.0)
--- NOTE | 2019-03-23 12:15 | CON.ID ---
Consult - Alcohol/Substance Use Hx Alcohol Use: Yes (last use a week ago) - Smoking History Smoking history: Never smoked Home Medications - Allergies Allergies/Adverse Reactions: Allergies Allergy/AdvReac Type Severity Reaction Status Date / Time No Known Allergies Allergy Verified 03/22/19 09:29 Physical Exam Vital Signs: Vital Signs Temperature 98.9 F 03/23/19 07:51 Pulse Rate 98 H 03/23/19 07:51 Respiratory Rate 15 03/23/19 07:51 Blood Pressure 117/50 L 03/23/19 07:51 O2 Sat by Pulse Oximetry (%) 98 03/22/19 21:00 Labs: CBC, BMP 03/23/19 11:50
[2019-03-23 12:27] LABS: INR 0.93 (0.83-1.09)
[2019-03-23 12:57] LABS: ALBUMIN 2.3 g/dl (3.4-5.0); BILIRUBIN,TOTAL 2.6 mg/dL (0.2-1); BLOOD UREA NITROGEN 7.5 mg/dL (7-18); CREATININE 0.6 mg/dL (0.55-1.3); MAGNESIUM 1.9 mg/dL (1.8-2.4); POTASSIUM 3.5 mmol/L (3.5-5.1); TOT PROT 4.9 g/dl (6.4-8.2)
[2019-03-23] MEDS ORDERED: PNEUMOC 13-VAL CONJ-DIP CRM/PF 0.5 ML DISP.SYRIN IM ONE (13:23)
[2019-03-23] MEDS ORDERED: SODIUM CHLORIDE 0.9%/KCL 20 MEQ/1,000 ML INFUS.BAG IV SCH (13:30)
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
--- NOTE | 2019-03-23 14:34 | CONSULT ---
Consultation: REQUESTING PROVIDER: [facility] CONSULT REQUEST: We have been asked to medically evaluate this patient for acute pancreatitis and hypertriglyceridemia HISTORY OF PRESENT ILLNESS: 48 year old, egyptian-speaking male with a history of alcohol abuse presented for 1 week of weakness, epigastric abdominal pain and vomiting. He was found to have acute pancreatitis with a focus of necrosis on CT and lipase of 1207. He was additionally noted to have a hypertriglyceridemia (1400). Today, patient reports feeling much improved compared to when he presented to the hospital, only noting to have pain in the R of his umbilicus and epigastrum. Denies nausea , vomiting, diarrhea, fevers, chills. Patient reports his last drink was 1 week ago. States that he did go through withdrawals in the past. Hematology consulted for the evaluation and management of hypertriglyceridemia in the setting of acute pancreatitis. Allergies: denies Smoking: never Alcohol: every day, last drink 1 week ago Drugs: never Surgeries: never Family History: denies family history of bleeding disorders, clotting disorders , or cancers, does not know about family history of high cholesterol. 1 healthy brother and several children. REVIEW OF SYSTEMS: CONSTITUTIONAL: Absent: fever, chills, diaphoresis, generalized weakness, malaise, loss of appetite, weight change HEENT: Absent: rhinorrhea, nasal congestion, throat pain, throat swelling, difficulty swallowing, mouth swelling, ear pain, eye pain, visual changes CARDIOVASCULAR: Absent: chest pain, syncope, palpitations, irregular heart rate, lightheadedness , peripheral edema RESPIRATORY: Absent: cough, shortness of breath, dyspnea with exertion, orthopnea, wheezing, stridor, hemoptysis GASTROINTESTINAL:abdominal pain Absent: abdominal distension, nausea, vomiting, diarrhea, constipation, melena , hematochezia GENITOURINARY: Absent: dysuria, frequency, urgency, hesitancy, hematuria, flank pain, genital pain MUSCULOSKELETAL: Absent: myalgia, arthralgia, joint swelling, back pain, neck pain SKIN: Absent: rash, itching, pallor HEMATOLOGIC/IMMUNOLOGIC: Absent: easy bleeding, easy bruising, lymphadenopathy, frequent infections ENDOCRINE: Absent: unexplained weight gain, unexplained weight loss, heat intolerance, cold intolerance NEUROLOGIC: Absent: headache, focal weakness or paresthesias, dizziness, unsteady gait, seizure, mental status changes, bladder or bowel incontinence PSYCHIATRIC: Absent: anxiety, depression, suicidal or homicidal ideation, hallucinations. PHYSICAL EXAMINATION Vital Signs - 24 hr 03/22/19 03/22/19 03/22/19 15:09 16:18 18:58 Temperature 98.8 F 98.2 F 98.4 F Pulse Rate 80 92 H Pulse Rate [ 86 Right Radial] Respiratory 18 18 18 Rate Blood Pressure 144/87 146/89 Blood Pressure 128/79 [Left Arm] O2 Sat by Pulse 98 Oximetry (%) 03/22/19 03/23/19 03/23/19 21:00 02:58 06:00 Temperature 99.4 F 99.9 F H Pulse Rate 96 H 98 H Pulse Rate [ Right Radial] Respiratory 18 20 20 Rate Blood Pressure 120/66 117/63 Blood Pressure [Left Arm] O2 Sat by Pulse 98 Oximetry (%) 03/23/19 03/23/19 07:51 09:00 Temperature 98.9 F Pulse Rate 98 H Pulse Rate [ Right Radial] Respiratory 15 Rate Blood Pressure 117/50 L Blood Pressure [Left Arm] O2 Sat by Pulse 98 Oximetry (%) GENERAL: A&Ox3, no acute distress EYES: R eye blind, clouded, L eye normal ENT: Dry mucus membranes LUNGS: CTA, no wheezes HEART: RRR, no murmurs ABDOMEN: Soft, mildly tender in the epigastrum EXTREMITIES: 2+ pulses, no edema. NEUROLOGICAL: Cranial nerves II-XII intact. Laboratory Results - last 24 hr 03/22/19 03/22/19 03/22/19 17:45 17:45 21:04 WBC RBC Hgb Hct MCV MCH MCHC RDW Plt Count MPV Absolute Neuts (auto) Neutrophils % Lymphocytes % Nucleated RBC % PT with INR INR Sodium 131 L Potassium 3.7 Chloride 92 L Carbon Dioxide 29 Anion Gap 9 BUN 11.8 Creatinine 0.6 Est GFR (CKD-EPI)AfAm 138.77 Est GFR (CKD-EPI)NonAf 119.73 POC Glucometer 81 Random Glucose 154 H Hemoglobin A1c % Calcium 6.9 L* Magnesium Total Bilirubin 2.4 H AST No Result Required. ALT No Result Required. Alkaline Phosphatase 199 H Creatine Kinase 190 Creatine Kinase Index 1.0 CK-MB (CK-2) 1.9 Total Protein 5.1 L Albumin 2.3 L Triglycerides Cholesterol Total LDL Cholesterol HDL Cholesterol Lipase 03/23/19 03/23/19 03/23/19 06:29 07:39 11:37 WBC RBC Hgb Hct MCV MCH MCHC RDW Plt Count MPV Absolute Neuts (auto) Neutrophils % Lymphocytes % Nucleated RBC % PT with INR INR Sodium Potassium Chloride Carbon Dioxide Anion Gap BUN Creatinine Est GFR (CKD-EPI)AfAm Est GFR (CKD-EPI)NonAf POC Glucometer 69 114 90 Random Glucose Hemoglobin A1c % Calcium Magnesium Total Bilirubin AST ALT Alkaline Phosphatase Creatine Kinase Creatine Kinase Index CK-MB (CK-2) Total Protein Albumin Triglycerides Cholesterol Total LDL Cholesterol HDL Cholesterol Lipase 03/23/19 03/23/19 03/23/19 11:50 11:50 11:50 WBC 7.9 RBC 3.10 L Hgb 10.3 L Hct 30.2 L MCV 97.4 H MCH 33.2 D MCHC 34.1 RDW 13.8 Plt Count 120 L MPV 9.3 D Absolute Neuts (auto) 5.2 Neutrophils % No Result Required. Lymphocytes % No Result Required. Nucleated RBC % 0 PT with INR INR Sodium 131 L Potassium 3.5 Chloride 95 L Carbon Dioxide 27 Anion Gap 9 BUN 7.5 Creatinine 0.6 Est GFR (CKD-EPI)AfAm 138.77 Est GFR (CKD-EPI)NonAf 119.73 POC Glucometer Random Glucose 96 Hemoglobin A1c % 6.3 Calcium 8.0 L Magnesium 1.9 Total Bilirubin 2.6 H AST 251 H ALT 122 H Alkaline Phosphatase 211 H Creatine Kinase Creatine Kinase Index CK-MB (CK-2) Total Protein 4.9 L Albumin 2.3 L Triglycerides 1400 H Cholesterol 342 H Total LDL Cholesterol 103 H HDL Cholesterol 21 L Lipase 774 H 03/23/19 11:50 WBC RBC Hgb Hct MCV MCH MCHC RDW Plt Count MPV Absolute Neuts (auto) Neutrophils % Lymphocytes % Nucleated RBC % PT with INR 11.00 INR 0.93 Sodium Potassium Chloride Carbon Dioxide Anion Gap BUN Creatinine Est GFR (CKD-EPI)AfAm Est GFR (CKD-EPI)NonAf POC Glucometer Random Glucose Hemoglobin A1c % Calcium Magnesium Total Bilirubin AST ALT Alkaline Phosphatase Creatine Kinase Creatine Kinase Index CK-MB (CK-2) Total Protein Albumin Triglycerides Cholesterol Total LDL Cholesterol HDL Cholesterol Lipase Active Medications Generic Name Dose Route Start Last Admin Trade Name Freq PRN Reason Stop Dose Admin Heparin Sodium (Porcine) 5,000 unit 03/23/19 22:00 Heparin - SQ BID LAURA Imipenem/Cilastatin Sodium 500 100 mls @ 100 mls/hr 03/23/19 02:00 03/23/19 10:37 mg/ Sodium Chloride IVPB 100 mls/hr Q8H-IV LAURA Administration Protocol Potassium Chloride/Sodium Chloride 20 meq in 1,000 mls @ 100 mls/hr 03/23/19 13:30 03/23/19 14:01 Ns+20 Meq Kcl - IV 100 mls/hr ASDIR LAURA Administration Lorazepam 1 mg 03/22/19 16:08 Ativan Injection - IVPUSH Q6H PRN WITHDRAWAL(CONT SUBST) ASSESSMENT/PLAN: 48 year old, egyptian-speaking male with a history of alcohol abuse presented for 1 week of weakness, epigastric abdominal pain and vomiting. 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 Carpenter ATTENDING PHYSICIAN STATEMENT I saw and evaluated the patient. I reviewed the resident's note and discussed the case with the resident. I agree with the resident's findings and plan as documented. SUBJECTIVE: OBJECTIVE: ASSESSMENT AND PLAN:
--- NOTE | 2019-03-23 16:49 | HOSP ---
Subjective - Review of Symptoms General: Yes: Fatigue Gastrointestinal: Yes: Nausea, Abdominal Pain Musculoskeletal: Yes: No Symptoms Physical Examination Vital Signs: Vital Signs Temperature 99.7 F H 03/23/19 16:02 Pulse Rate 94 H 03/23/19 16:02 Respiratory Rate 20 03/23/19 16:02 Blood Pressure 138/56 L 03/23/19 16:02 O2 Sat by Pulse Oximetry (%) 98 03/23/19 09:00 Constitutional: Yes: Anxious Cardiovascular: Yes: Regular Rate and Rhythm Respiratory: Yes: CTA Bilaterally Gastrointestinal: Yes: Tenderness Labs: CBC, BMP 03/23/19 11:50 03/23/19 11:50 Hospitalist Encounter Assessment: Was asked to see patient again as he was having increased anxiety about not eating. Discussed with him that if he eats, his abdomnal pain will get worse and he will likely vomit, which means he will be taking a step backwards from yesterday. I allowed him to have ice chips intermittently but he keeps demanding to eat. He became upset that he could not eat and threatened to leave AM. He has showed me that he has capacity to make his own medical decisions. I asked him to re consider and again discussed his POC Told him if he leaves AMA he is risking sudden as he has pancreatitis with necrosis, has triglycerides levels of 1400. He is re-considering staying. If he does leave [facility], he already has had that conversation with me.
--- NOTE | 2019-03-23 17:37 | CONSULT ---
Consult Consult Specialty:: Endocrinology Referred by:: Dr Chaudhry Reason for Consultation:: Hypertriglyceridemia - History of Present Illness Chief Complaint: Abd pain History of Present Illness: This is a 48 year old, estonian-speaking male with a history of alcohol abuse presented with c/o 1 week of weakness, epigastric abdominal pain and vomiting. Drank last a week ago as per pt. He was found to have acute pancreatitis with a focus of necrosis on CT and lipase of 1207. He was additionally noted to have a hypertriglyceridemia (1400). Pt feels better with mild epigastric pain and is upset that he is not allowed to eat. Denies nausea, vomiting, diarrhea, fevers , chills. States that he did go through withdrawals in the past. Pt referred for evaluation of hypertriglycemidemia. - History Source History Provided By: Patient, Medical Record - Alcohol/Substance Use Hx Alcohol Use: Yes (last use a week ago) - Smoking History Smoking history: Never smoked Home Medications - Allergies Allergies/Adverse Reactions: Allergies Allergy/AdvReac Type Severity Reaction Status Date / Time No Known Allergies Allergy Verified 03/22/19 09:29 Review of Systems - Review of Systems Constitutional: reports: No Symptoms Eyes: reports: Other (Blindness rt eye s/p trauma) HENT: reports: No Symptoms Neck: reports: No Symptoms Cardiovascular: reports: No Symptoms Respiratory: reports: No Symptoms Gastrointestinal: reports: Abdominal Pain Genitourinary: reports: No Symptoms Musculoskeletal: reports: No Symptoms Neurological: reports: No Symptoms Physical Exam Vital Signs: Vital Signs Temperature 99.7 F H 03/23/19 16:02 Pulse Rate 94 H 03/23/19 16:02 Respiratory Rate 20 03/23/19 16:02 Blood Pressure 138/56 L 03/23/19 16:02 O2 Sat by Pulse Oximetry (%) 98 03/23/19 09:00 Constitutional: Yes: No Distress, Calm Eyes: Yes: Conjunctiva Clear, EOM Intact HENT: Yes: Atraumatic, Normocephalic Neck: Yes: Supple, Trachea Midline Cardiovascular: Yes: Regular Rate and Rhythm Respiratory: Yes: Regular, CTA Bilaterally Gastrointestinal: Yes: Hyperactive Bowel Sounds, Tenderness, Epigastrium Musculoskeletal: Yes: WNL Extremities: Yes: WNL Neurological: Yes: Alert, Oriented Labs: CBC, BMP 03/23/19 11:50 03/23/19 11:50 Assessment/Plan AP: Acute pancreatitis Hypertriglyceridemia ICU consult noted, Not candidate for Apheresis. Case discussed with Hem/Onc Monitor lactic acid. may be candidate for Apheresis if it is elevated, ap in view of initial hypocalcemia For treatment with IV Insulin/D10 for now once transferred to ICU Rec start D10 at 100 ml/hr IV Insulin Infusion at 0.1u/kg/hr BGM Q one hr Titrate D10 rate to maintain BGM 150 to 200 D50 one amp stat when blood sugar drops to <100 Monitor electrolytes, K+, PO4, Mg Q 6 hrs Change to D10NS if pt develops hyponatremia on D10 Rpt Trig 12 hrs after starting Insulin drip Start Fenofibrate once pt is able to take orally. Will F/U
[2019-03-23 17:53] LABS: ANISOCYTOSIS 1+; MACROCYTOSIS 0; PLATELET ESTIMATE DECREASED
[2019-03-23 17:53] LABS: EPI CELLS 2.3 /HPF (0-5/HPF); HYALINE CASTS 4 /lpf (0-8); URINE APPEARANCE CLEAR; URINE BACTERIA 4.6 /hpf (NEGATIVE); URINE BILIRUBIN 1+ (NEGATIVE); URINE COLOR DK YELLOW; URINE GLUCOSE (UA) NEGATIVE (NEGATIVE); URINE KETONE 2+ (NEGATIVE); URINE LEUK ESTERASE NEGATIVE (NEGATIVE); URINE NITRITE NEGATIVE (NEGATIVE); URINE PROTEIN 1+ (NEGATIVE); URINE RBC 4 /hpf (0-4); URINE WBC 1 /hpf (0-5)
[2019-03-23] MEDS ORDERED: DEXTROSE 10%-WATER - 1,000 ML IV SCH (18:00)
[2019-03-23] MEDS ORDERED: DEXTROSE 50%-WATER - 25 GM/50 ML VIAL IVPUSH PRN (18:05)
[2019-03-23] MEDS ORDERED: INSULIN REGULAR 100 UNITS in SODIUM CHLORIDE 99 ML IVPB SCH (18:15)
--- NOTE | 2019-03-23 18:42 | CON.GI ---
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 he drink heavily. he is inconsistent with the timing of things. He says that last week or this week he drank 3 bottles of tequila in 4 days with friends. He says that while living in [facility], prior to coming to the in 2005, he would drink a couple of cases of beer on the weekends, possibly with friends. CT scan revealed changes c /w acute pancreatitis and the possibility of a few foci of necrosis in the head of the pancreas. he denies personal or family history of pancreatitis. pain has improved. Abdominal US revealed a fatty liver / hepatomegaly without evidence of gallstones / dilated biliary tract. Triglycerides noted to be elevated and he is being evaluated by endocrinology. He states that he is hungry and wants to eat. - History Source History Provided By: Patient, Medical Record Limitations to Obtaining History: Poor Historian - Past Medical History Psych: Yes: Addictions (Alcohol) - Past Surgical History Additional Surgical History: Denies - Alcohol/Substance Use Hx Alcohol Use: Yes (last use a week ago) - Smoking History Smoking history: Never smoked - Social History Usual Living Arrangement: Alone ADL: Independent Occupation: Works in construction Place of : Other ([place]) Came to [place]year[place] 2005 History of Recent Travel: No Home Medications - Allergies Allergies/Adverse Reactions: Allergies Allergy/AdvReac Type Severity Reaction Status Date / Time No Known Allergies Allergy Verified 03/22/19 09:29 Family Medical History Other Family History: Father in accident. Mother: alive, healthy. 2 sisters, 1 brother: healthy. 1 son, healthy. No family history of pancreatitis , colon cancer Review of Systems - Review of Systems Constitutional: denies: Chills Cardiovascular: denies: Chest Pain Gastrointestinal: reports: Abdominal Pain, Nausea (resolved), Vomiting (resolved ) Physical Exam-GI Vital Signs: Vital Signs Temperature 99.7 F H 03/23/19 16:02 Pulse Rate 94 H 03/23/19 16:02 Respiratory Rate 20 03/23/19 16:02 Blood Pressure 138/56 L 03/23/19 16:02 O2 Sat by Pulse Oximetry (%) 98 03/23/19 09:00 Constitutional: Yes: Calm Eyes: No: Sclera Icterus Cardiovascular: Yes: Regular Rate and Rhythm Respiratory: Yes: CTA Bilaterally Gastrointestinal Inspection: No: Distention ...Auscultate: Yes: Normoactive Bowel Sounds ...Palpate: Yes: Soft, Tenderness (Mild TTP mid abdomen). No: Guarding, Tenderness, Rebound ...Percussion: No: Tympanitic Edema: No (No LE edema) Neurological: Yes: Alert, Oriented (x 3) Labs: CBC, BMP 03/23/19 11:50 03/23/19 11:50 INR, PTT INR 0.93 (0.83-1.09) 03/23/19 11:50 Problem List - Problems (1) Acute pancreatitis Assessment/Plan: With elevated triglycerides. ? if hypertriglyceridemai precipitated by alcohol binge or preexisting and causative of the pancreatitis. Clinically appearsw well with minimal tenderness on exam: Advise: IV hydration: D5LR @ 200 Advanced to clears Ordered MRI of the abdomen with and without contrast, with MRCP to further evaluate pancreas and biliary tract Advised the patient he needs to completely abstain from alcohol. Explained that is he does not, he will likely from complications of his alcoholism Code(s): K85.90 - ACUTE PANCREATITIS WITHOUT NECROSIS OR INFECTION, UNSP Qualifiers: Pancreatitis type: alcohol induced Acute pancreatitis complication: unspecified Qualified Code(s): K85.20 - Alcohol induced acute pancreatitis without necrosis or infection (2) Abnormal liver function tests Assessment/Plan: Suspect component of chronic liver disease with superimposed alc hep. No stones or dilated biliary tract noted on US. as above, ordered MRI/MRCP for further evaluation Check Hepatitis A/B panel Check HCV diagnostic Ab Monitor LFTs Avoid hepatotoxic agents Code(s): R94.5 - ABNORMAL RESULTS OF LIVER FUNCTION STUDIES
--- NOTE | 2019-03-23 19:53 | PN ---
Teaching Attending Note Name of Resident: Mahad Mason ATTENDING PHYSICIAN STATEMENT I saw and evaluated the patient. I reviewed the resident's note and discussed the case with the resident. I agree with the resident's findings and plan as documented. ASSESSMENT AND PLAN: USed [employer] 48 y/o patient , alcoholic with right eye blindness, comes in with abdominal pain. Diagnosed with acute pancreatitis with necrosis. Triglycerids elevated to 1400 aswell PAtient clinically much better today. Reports that pain is much better On fluids and carbepenem Discussed with endocrine team. check lactic acid Will consider apheresis for any change in clinical status/worsening pancreatitis discussed with icu team
[2019-03-23] MEDS: DEXTROSE 5%-LACTATED RINGERS 1,000 ML IV SCH (20:23)
[2019-03-23] MEDS: HEPARIN NA (PORCINE) 5,000 UNITS/ML 1ML VIAL SQ SCH (21:39)
[2019-03-23] MEDS: MUPIROCIN 2% TOPICAL OINTMENT FOR DECOLONIZATION NS SCH (21:40)
[2019-03-23] MEDS: CHLORHEXIDINE GLUCONATE 4% CLEANSER FOR DECOLONIZATION TP SCH (21:40)
[2019-03-24] MEDS ORDERED: PT OWN MED DRAWER 7, Y5N ONE ×4 (00:44→17:52)
[2019-03-24] MEDS: IMIPENEM/CILASTATIN SODIUM 500 MG in SODIUM CHLORIDE 100 ML IVPB SCH ×3 (01:55→17:55)
[2019-03-24 02:28] LABS: ALBUMIN 2.2 g/dl (3.4-5.0); BILIRUBIN,TOTAL 2.1 mg/dL (0.2-1); BLOOD UREA NITROGEN 4.5 mg/dL (7-18); CREATININE 0.9 mg/dL (0.55-1.3); MAGNESIUM 1.8 mg/dL (1.8-2.4); PHOSPHOROUS 1.3 mg/dL (2.5-4.9); POTASSIUM 3.1 mmol/L (3.5-5.1)
[2019-03-24] MEDS ORDERED: POTASSIUM CHLORIDE TABS 20 MEQ TABLET.ER (FP) PO ONE (02:35)
[2019-03-24 06:28] LABS: BASO % 0.7 % (0-2.0); EOS % 0.7 % (0-4.5); HEMATOCRIT 30.4 % (35.4-49); HEMOGLOBIN 10.3 GM/dL (11.7-16.9); LYMPH % 17.8 % (8-40); MEAN PLT VOLUME 9.6 fl (7.5-11.1); MONO % 7.1 % (3.8-10.2); NEUT % 73.7 % (42.8-82.8); PLATELET COUNT 143 K/MM3 (134-434); RBC 3.14 M/mm3 (4.00-5.60); WHITE BLOOD COUNT 8.4 K/mm3 (4.0-10.0)
[2019-03-24 06:55] LABS: ALBUMIN 2.2 g/dl (3.4-5.0); BILIRUBIN,TOTAL 2.5 mg/dL (0.2-1); BLOOD UREA NITROGEN 3.4 mg/dL (7-18); CREATININE 0.8 mg/dL (0.55-1.3); MAGNESIUM 1.8 mg/dL (1.8-2.4); POTASSIUM 3.6 mmol/L (3.5-5.1); TOT PROT 5.1 g/dl (6.4-8.2)
[2019-03-24] MEDS: HEPARIN NA (PORCINE) 5,000 UNITS/ML 1ML VIAL SQ SCH ×2 (09:27→22:25)
[2019-03-24] MEDS: MUPIROCIN 2% TOPICAL OINTMENT FOR DECOLONIZATION NS SCH ×2 (09:27→22:26)
--- NOTE | 2019-03-24 10:16 | PN ---
Progress Note (short form) - Note Progress Note: Feels better Less abd pain Had BM today Vital Signs Period Temp Pulse Resp BP Sys/Garcia Pulse Ox Last 24 Hr 98.1 F-99.7 F 81-111 16-23 124-138/56-91 98-98 PE: AOx3 Neck: supple, No JVD HEENT: EOMI Lungs: CTA CVS: S1S2 Abd: Benign Ext: No edema Neuro: No focal deficit CMP Sodium 133 mmol/L (136-145) L 03/24/19 05:35 Potassium 3.6 mmol/L (3.5-5.1) 03/24/19 05:35 Chloride 95 mmol/L (98-107) L 03/24/19 05:35 Carbon Dioxide 30 mmol/L (21-32) 03/24/19 05:35 Anion Gap 9 MMOL/L (8-16) 03/24/19 05:35 BUN 3.4 mg/dL (7-18) L 03/24/19 05:35 Creatinine 0.8 mg/dL (0.55-1.3) 03/24/19 05:35 Est GFR (CKD-EPI)AfAm 123.29 03/24/19 05:35 Est GFR (CKD-EPI)NonAf 106.38 03/24/19 05:35 POC Glucometer 183 UNITS (80-120) 03/24/19 09:40 Random Glucose 68 mg/dL (74-106) L 03/24/19 05:35 Hemoglobin A1c % 6.3 % (4.2-6.3) 03/23/19 11:50 Lactic Acid < 0.1 mmol/L (0.4-2.0) L 03/23/19 17:30 Calcium 8.0 mg/dL (8.5-10.1) L 03/24/19 05:35 Phosphorus 1.3 mg/dL (2.5-4.9) L 03/24/19 00:45 Magnesium 1.8 mg/dL (1.8-2.4) 03/24/19 05:35 Total Bilirubin 2.5 mg/dL (0.2-1) H 03/24/19 05:35 AST 297 U/L (15-37) H 03/24/19 05:35 ALT 176 U/L (13-61) H 03/24/19 05:35 Alkaline Phosphatase 237 U/L (45-117) H 03/24/19 05:35 Creatine Kinase 190 U/L (26-308) 03/22/19 17:45 Creatine Kinase Index 1.0 % (0.0-5.0) 03/22/19 17:45 CK-MB (CK-2) 1.9 ng/mL (0.5-3.6) 03/22/19 17:45 Total Protein 5.1 g/dl (6.4-8.2) L 03/24/19 05:35 Albumin 2.2 g/dl (3.4-5.0) L 03/24/19 05:35 Triglycerides 517 mg/dL (0-150) H 03/24/19 05:35 Cholesterol 373 mg/dL (50-200) H 03/24/19 05:35 Total LDL Cholesterol 170 mg/dL (5-100) H 03/24/19 05:35 HDL Cholesterol 16 mg/dL (40-60) L 03/24/19 05:35 Lipase 774 U/L (73-393) H 03/23/19 11:50 Current Medications Generic Name Dose Route Start Last Admin Trade Name Freq PRN Reason Stop Dose Admin Chlorhexidine Gluconate 1 applic 03/23/19 22:00 03/23/19 21:40 Hibiclens For Decolonization - TP 1 applic HS LAURA Administration Dextrose 25 gm 03/23/19 18:05 D50w (Vial) - IVPUSH Q6H PRN HYPOGLYCEMIA Heparin Sodium (Porcine) 5,000 unit 03/23/19 22:00 03/24/19 09:27 Heparin - SQ 5,000 unit BID LAURA Administration Imipenem/Cilastatin Sodium 500 100 mls @ 100 mls/hr 03/23/19 02:00 03/24/19 01:55 mg/ Sodium Chloride IVPB 100 mls/hr Q8H-IV LAURA Administration Protocol Insulin Human Regular 100 100 mls @ 7.66 mls/hr 03/23/19 18:15 03/24/19 05:30 units/ Sodium Chloride IVPB 0 units/kg/hr TITR LAURA 0 mls/hr Titration Protocol 0.1 UNITS/KG/HR Dextrose/Lactated Ringer's 1,000 mls @ 150 mls/hr 03/23/19 19:00 03/23/19 20: 23 D5-Lr - IV 150 mls/hr ASDIR LAURA Administration Lorazepam 1 mg 03/22/19 16:08 Ativan Injection - IVPUSH Q6H PRN WITHDRAWAL(CONT SUBST) Mupirocin 1 applic 03/23/19 22:00 03/24/19 09:27 Bactroban Ointment (For Decolonization) - NS 03/28/19 21:59 1 applic BID LAURA Administration AP: Acute pancreatitis Hypertriglyceridemia Elevated LFTs Improving Trig on IV Insulin BGM Q one hr Titrate D5LR rate to maintain BGM 150 to 200 D50 one amp stat when blood sugar drops to <100 Monitor electrolytes, K+, PO4, Mg Q 6 hrs Rpt Trig 12 hrs . Stop Insulin drip once Trig <500 Start Vascepa once pt is able to take orally. This might be a better option in view of Increased LFTs. May start Fenofibrate if GI feels its Ok. Will F/U
[2019-03-24 10:56] LABS: ANISOCYTOSIS 0; MACROCYTOSIS 1+; OVALOCYTE 1+; PLATELET ESTIMATE DECREASED; TARGET CELLS 1+
--- NOTE | 2019-03-24 11:49 | PN.GI ---
GI Progress Note Subjective: No acute events Tolerated Lcears Triglycerides improved - Objective Vital Signs: Vital Signs Temperature 99.6 F 03/24/19 10:00 Pulse Rate 88 03/24/19 10:00 Respiratory Rate 16 03/24/19 10:00 Blood Pressure 124/86 03/24/19 10:00 O2 Sat by Pulse Oximetry (%) 98 03/24/19 08:31 Constitutional: Calm Eyes: No: Sclera Icterus Cardiovascular: Yes: Regular Rate and Rhythm Respiratory: Yes: CTA Bilaterally Gastrointestinal Inspection: No: Distention ...Auscultate: Yes: Normoactive Bowel Sounds ...Palpate: Yes: Tenderness (Mild TTP mid abdomen) ...Percussion: No: Tympanitic Edema: No (No LE edema) Neurological: Yes: Alert. No: [facility] Labs: CBC, BMP 03/24/19 05:35 03/24/19 05:35 INR, PTT INR 0.93 (0.83-1.09) 03/23/19 11:50 Hepatic Panel Total Bilirubin 2.5 mg/dL (0.2-1) H 03/24/19 05:35 AST 297 U/L (15-37) H 03/24/19 05:35 ALT 176 U/L (13-61) H 03/24/19 05:35 Alkaline Phosphatase 237 U/L (45-117) H 03/24/19 05:35 Albumin 2.2 g/dl (3.4-5.0) L 03/24/19 05:35 Problem List - Problems (1) Acute pancreatitis Assessment/Plan: Clinically looks well. No acting as if he has infected necrosis Advance diet MRI/MRCP pending Starting PO triglyceride therapy per endo Decrease IV fluids Would D/C Imipenem. ID following Code(s): K85.90 - ACUTE PANCREATITIS WITHOUT NECROSIS OR INFECTION, UNSP Qualifiers: Pancreatitis type: alcohol induced Acute pancreatitis complication: unspecified Qualified Code(s): K85.20 - Alcohol induced acute pancreatitis without necrosis or infection (2) Abnormal liver function tests Assessment/Plan: Plan as noted in initial consult Avoid hepatotoxic agents Code(s): R94.5 - ABNORMAL RESULTS OF LIVER FUNCTION STUDIES
--- NOTE | 2019-03-24 11:56 | PN ---
Teaching Attending Note Name of Resident: Olesya Davenport ATTENDING PHYSICIAN STATEMENT I saw and evaluated the patient. I reviewed the resident's note and discussed the case with the resident. I agree with the resident's findings and plan as documented. SUBJECTIVE: Patient seen and examined in the ICU. Awake and alert. Only mild abdominal pain today. No CP or SOB. Intake & Output 03/21/19 03/22/19 03/23/19 03/24/19 23:59 23:59 23:59 23:59 Intake Total 3740 3096 Output Total 400 1855 2200 Balance -400 1885 896 Weight 169 lb Last Vital Signs Temp Pulse Resp BP Pulse Ox 99.6 F 88 16 124/86 98 03/24/19 10:00 03/24/19 10:00 03/24/19 10:00 03/24/19 10:00 03/24/19 08:31 Active Medications Chlorhexidine Gluconate (Hibiclens For Decolonization -) 1 applic TP HS [facility] Last Admin: 03/23/19 21:40 Dose: 1 applic Dextrose (D50w (Vial) -) 25 gm IVPUSH Q6H PRN PRN Reason: HYPOGLYCEMIA Fenofibric Acid (Trilipix -) 45 mg PO DAILY [facility] Heparin Sodium (Porcine) (Heparin -) 5,000 unit SQ BID LAURA Last Admin: 03/24/19 09:27 Dose: 5,000 unit Imipenem/Cilastatin Sodium 500 (mg/ Sodium Chloride) 100 mls @ 100 mls/hr IVPB Q8H-IV LAURA; Protocol Last Admin: 03/24/19 01:55 Dose: 100 mls/hr Dextrose/Lactated Ringer's (D5-Lr -) 1,000 mls @ 150 mls/hr IV ASDIR LAURA Last Admin: 03/23/19 20:23 Dose: 150 mls/hr Lorazepam (Ativan Injection -) 1 mg IVPUSH Q6H PRN PRN Reason: WITHDRAWAL(CONT SUBST) Mupirocin (Bactroban Ointment (For Decolonization) -) 1 applic NS BID [facility] Stop: 03/28/19 21:59 Last Admin: 03/24/19 09:27 Dose: 1 applic GENERAL: A&Ox3, no acute distress EYES: R eye blind, clouded, L eye normal ENT: Dry mucus membranes LUNGS: Clear, diminished at the bases HEART: RRR, no murmurs ABDOMEN: Soft, mildly tender in the epigastrum EXTREMITIES: 2+ pulses, no edema. NEUROLOGICAL: Non-focal Laboratory Results - last 24 hr 03/22/19 03/22/19 03/22/19 17:45 17:45 21:04 WBC RBC Hgb Hct MCV MCH MCHC RDW Plt Count MPV Absolute Neuts (auto) Neutrophils % Lymphocytes % Nucleated RBC % PT with INR INR Sodium 131 L Potassium 3.7 Chloride 92 L Carbon Dioxide 29 Anion Gap 9 BUN 11.8 Creatinine 0.6 Est GFR (CKD-EPI)AfAm 138.77 Est GFR (CKD-EPI)NonAf 119.73 POC Glucometer 81 Random Glucose 154 H Hemoglobin A1c % Calcium 6.9 L* Magnesium Total Bilirubin 2.4 H AST No Result Required. ALT No Result Required. Alkaline Phosphatase 199 H Creatine Kinase 190 Creatine Kinase Index 1.0 CK-MB (CK-2) 1.9 Total Protein 5.1 L Albumin 2.3 L Triglycerides Cholesterol Total LDL Cholesterol HDL Cholesterol Lipase 03/23/19 03/23/19 03/23/19 06:29 07:39 11:37 WBC RBC Hgb Hct MCV MCH MCHC RDW Plt Count MPV Absolute Neuts (auto) Neutrophils % Lymphocytes % Nucleated RBC % PT with INR INR Sodium Potassium Chloride Carbon Dioxide Anion Gap BUN Creatinine Est GFR (CKD-EPI)AfAm Est GFR (CKD-EPI)NonAf POC Glucometer 69 114 90 Random Glucose Hemoglobin A1c % Calcium Magnesium Total Bilirubin AST ALT Alkaline Phosphatase Creatine Kinase Creatine Kinase Index CK-MB (CK-2) Total Protein Albumin Triglycerides Cholesterol Total LDL Cholesterol HDL Cholesterol Lipase 03/23/19 03/23/19 03/23/19 11:50 11:50 11:50 WBC 7.9 RBC 3.10 L Hgb 10.3 L Hct 30.2 L MCV 97.4 H MCH 33.2 D MCHC 34.1 RDW 13.8 Plt Count 120 L MPV 9.3 D Absolute Neuts (auto) 5.2 Neutrophils % No Result Required. Lymphocytes % No Result Required. Nucleated RBC % 0 PT with INR INR Sodium 131 L Potassium 3.5 Chloride 95 L Carbon Dioxide 27 Anion Gap 9 BUN 7.5 Creatinine 0.6 Est GFR (CKD-EPI)AfAm 138.77 Est GFR (CKD-EPI)NonAf 119.73 POC Glucometer Random Glucose 96 Hemoglobin A1c % 6.3 Calcium 8.0 L Magnesium 1.9 Total Bilirubin 2.6 H AST 251 H ALT 122 H Alkaline Phosphatase 211 H Creatine Kinase Creatine Kinase Index CK-MB (CK-2) Total Protein 4.9 L Albumin 2.3 L Triglycerides 1400 H Cholesterol 342 H Total LDL Cholesterol 103 H HDL Cholesterol 21 L Lipase 774 H 03/23/19 11:50 WBC RBC Hgb Hct MCV MCH MCHC RDW Plt Count MPV Absolute Neuts (auto) Neutrophils % Lymphocytes % Nucleated RBC % PT with INR 11.00 INR 0.93 Sodium Potassium Chloride Carbon Dioxide Anion Gap BUN Creatinine Est GFR (CKD-EPI)AfAm Est GFR (CKD-EPI)NonAf POC Glucometer Random Glucose Hemoglobin A1c % Calcium Magnesium Total Bilirubin AST ALT Alkaline Phosphatase Creatine Kinase Creatine Kinase Index CK-MB (CK-2) Total Protein Albumin Triglycerides Cholesterol Total LDL Cholesterol HDL Cholesterol Lipase ASSESSMENT/PLAN: Acute Pancreatitis due to ETOH +/- Hypertriglyceridemia Alcohol abuse Hyperglycemia R/O Acute Necrotizing Pancreatitis Anemia MRI/MRCP: if necrosis may need transfer to tertiary Can DC insulin drip ABX per ID PO per GI O2 as needed VTE prophylaxis IVF Floor monitoring if MRI workup does not reveal necrosis Dr Morales
--- NOTE | 2019-03-24 12:47 | PN ---
Progress Note, Physician History of Present Illness: patient txed to icu because of high triglycerdes was started on insulin drip,now stopped pain better - Current Medication List Current Medications: Active Medications Chlorhexidine Gluconate (Hibiclens For Decolonization -) 1 applic TP HS [facility] Last Admin: 03/23/19 21:40 Dose: 1 applic Dextrose (D50w (Vial) -) 25 gm IVPUSH Q6H PRN PRN Reason: HYPOGLYCEMIA Fenofibric Acid (Trilipix -) 45 mg PO DAILY [facility] Heparin Sodium (Porcine) (Heparin -) 5,000 unit SQ BID [facility] Last Admin: 03/24/19 09:27 Dose: 5,000 unit Imipenem/Cilastatin Sodium 500 (mg/ Sodium Chloride) 100 mls @ 100 mls/hr IVPB Q8H-IV LAURA; Protocol Last Admin: 03/24/19 01:55 Dose: 100 mls/hr Dextrose/Lactated Ringer's (D5-Lr -) 1,000 mls @ 150 mls/hr IV ASDIR [facility] Last Admin: 03/23/19 20:23 Dose: 150 mls/hr Lorazepam (Ativan Injection -) 1 mg IVPUSH Q6H PRN PRN Reason: WITHDRAWAL(CONT SUBST) Mupirocin (Bactroban Ointment (For Decolonization) -) 1 applic NS BID [facility] Stop: 03/28/19 21:59 Last Admin: 03/24/19 09:27 Dose: 1 applic - Objective Vital Signs: Vital Signs Temperature 99.6 F 03/24/19 10:00 Pulse Rate 88 03/24/19 12:00 Respiratory Rate 16 03/24/19 12:00 Blood Pressure 130/86 03/24/19 12:00 O2 Sat by Pulse Oximetry (%) 98 03/24/19 08:31 Constitutional: Yes: No Distress, Calm Cardiovascular: Yes: S1, S2 Respiratory: Yes: Regular, CTA Bilaterally Gastrointestinal: Yes: Normal Bowel Sounds, Soft Musculoskeletal: Yes: WNL Extremities: Yes: WNL Neurological: Yes: Alert, Oriented Psychiatric: Yes: Alert, Oriented Labs: CBC, BMP 03/24/19 05:35 03/24/19 05:35 INR, PTT INR 0.93 (0.83-1.09) 03/23/19 11:50 Assessment/Plan Problem List - Problems (1) Hypertriglyceridemia Code(s): E78.1 - PURE HYPERGLYCERIDEMIA (2) Acute pancreatitis Code(s): K85.90 - ACUTE PANCREATITIS WITHOUT NECROSIS OR INFECTION, UNSP Qualifiers: Pancreatitis type: alcohol induced Acute pancreatitis complication: unspecified Qualified Code(s): K85.20 - Alcohol induced acute pancreatitis without necrosis or infection (3) Necrosis of pancreas Code(s): K86.89 - OTHER SPECIFIED DISEASES OF PANCREAS (4) Thrombocytopenia Code(s): D69.6 - THROMBOCYTOPENIA, UNSPECIFIED (5) Elevated lipase Code(s): R74.8 - ABNORMAL LEVELS OF OTHER SERUM ENZYMES (6) Proteinuria Code(s): R80.9 - PROTEINURIA, UNSPECIFIED (7) Alcohol withdrawal Code(s): F10.239 - ALCOHOL DEPENDENCE WITH WITHDRAWAL, UNSPECIFIED Qualifiers: Complication of substance-induced condition: with unspecified complication Qualified Code(s): F10.239 - Alcohol dependence with withdrawal, unspecified (8) Hypocalcemia Code(s): E83.51 - HYPOCALCEMIA (9) Hypokalemia Code(s): E87.6 - HYPOKALEMIA (10) Hyponatremia Code(s): E87.1 - HYPO-OSMOLALITY AND HYPONATREMIA (11) Mass of soft tissue of upper arm Code(s): R22.30 - LOCALIZED SWELLING, MASS AND LUMP, UNSPECIFIED UPPER LIMB plan continue treatment as per icu continue abx surgery on case close monitoring hydration as per gi cc 40 min
--- NOTE | 2019-03-24 13:19 | PN ---
Progress Note, Physician Chief Complaint: still having abdominal pain with nausea, no vomiting. mild abdominal distention. History of Present Illness: Patient is a 48 year old male with a significant past medical history of ETOH abuse. He reports that he had a withdrawal seizure 2 years ago and non since. He tells me his last drink was last week and cut out drinking on his own because he started to feel worse in the last few weeks. He began vomiting two days prior to admission and was unable to keep anything down. He says the color of his vomitus was yellow, and denies coughing up blood. He reports diffuse abdominal pain, mostly to the upper quadrants, constant and sharp in quality. He notes anorexia and decreased PO intake. The patient also reports upper extremity tremors on admission that have since resolved. - Current Medication List Current Medications: Active Medications Chlorhexidine Gluconate (Hibiclens For Decolonization -) 1 applic TP HS [facility] Last Admin: 03/23/19 21:40 Dose: 1 applic Dextrose (D50w (Vial) -) 25 gm IVPUSH Q6H PRN PRN Reason: HYPOGLYCEMIA Fenofibric Acid (Trilipix -) 45 mg PO DAILY [facility] Heparin Sodium (Porcine) (Heparin -) 5,000 unit SQ BID [facility] Last Admin: 03/24/19 09:27 Dose: 5,000 unit Imipenem/Cilastatin Sodium 500 (mg/ Sodium Chloride) 100 mls @ 100 mls/hr IVPB Q8H-IV [facility]; Protocol Last Admin: 03/24/19 01:55 Dose: 100 mls/hr Dextrose/Lactated Ringer's (D5-Lr -) 1,000 mls @ 150 mls/hr IV ASDIR [facility] Last Admin: 03/23/19 20:23 Dose: 150 mls/hr Lorazepam (Ativan Injection -) 1 mg IVPUSH Q6H PRN PRN Reason: WITHDRAWAL(CONT SUBST) Mupirocin (Bactroban Ointment (For Decolonization) -) 1 applic NS BID [facility] Stop: 03/28/19 21:59 Last Admin: 03/24/19 09:27 Dose: 1 applic - Objective Vital Signs: Vital Signs Temperature 99.6 F 03/24/19 10:00 Pulse Rate 88 03/24/19 12:00 Respiratory Rate 16 03/24/19 12:00 Blood Pressure 130/86 03/24/19 12:00 O2 Sat by Pulse Oximetry (%) 98 03/24/19 08:31 Labs: CBC, BMP 03/24/19 05:35 03/24/19 05:35 INR, PTT INR 0.93 (0.83-1.09) 03/23/19 11:50 Problem List - Problems (1) Hypertriglyceridemia Assessment/Plan: Started on insulin drip for triglyceridemia @ 1400 with elevated cholesterol levels with close icu monitoring. Triglycerides now in the 500s. elevated ast/alt patient with acute pancreatitis with small area of necrosis Endocrinology following, notes appreciated Code(s): E78.1 - PURE HYPERGLYCERIDEMIA (2) Acute pancreatitis Assessment/Plan: CTAP 03/22/19: acute pancreatitis with small area of necrosis per imaging. On Imipenem per ID. Continue IV hydration and maintain NPO for continued abdominal pain and nausea. GI/Surgery consulted for further plans. ID following. for an MRI today Code(s): K85.90 - ACUTE PANCREATITIS WITHOUT NECROSIS OR INFECTION, UNSP Qualifiers: Pancreatitis type: alcohol induced Acute pancreatitis complication: unspecified Qualified Code(s): K85.20 - Alcohol induced acute pancreatitis without necrosis or infection (3) Necrosis of pancreas Code(s): K86.89 - OTHER SPECIFIED DISEASES OF PANCREAS (4) Thrombocytopenia Assessment/Plan: resolved Code(s): D69.6 - THROMBOCYTOPENIA, UNSPECIFIED (5) Elevated lipase Assessment/Plan: patient with elevated lipase of 1207 on admission, now trending down. He was found to have acute pancreatitis on imaging with small areas of necrosis. Continue to monitor lipase. Code(s): R74.8 - ABNORMAL LEVELS OF OTHER SERUM ENZYMES (6) Proteinuria Assessment/Plan: +3 urine protein on UA. repeat UA and monitor renal function Code(s): R80.9 - PROTEINURIA, UNSPECIFIED (7) Alcohol withdrawal Assessment/Plan: Denies recent drinking, quit drinking on his own 1 week about w/o seizure activity per patient. moderate CIWA score presently but acceptable w/o withdrawal symptoms. Code(s): F10.239 - ALCOHOL DEPENDENCE WITH WITHDRAWAL, UNSPECIFIED Qualifiers: Complication of substance-induced condition: with unspecified complication Qualified Code(s): F10.239 - Alcohol dependence with withdrawal, unspecified (8) Hypocalcemia Assessment/Plan: monitor daily. corrected calcium 8.3. Code(s): E83.51 - HYPOCALCEMIA (9) Hypokalemia Code(s): E87.6 - HYPOKALEMIA (10) Hyponatremia Assessment/Plan: repeat cmp daily and monitor Code(s): E87.1 - HYPO-OSMOLALITY AND HYPONATREMIA (11) Mass of soft tissue of upper arm Assessment/Plan: left arm mass for a few years that has been increasing in size and causing pain and discomfort. Lipoma? Surgery following Code(s): R22.30 - LOCALIZED SWELLING, MASS AND LUMP, UNSPECIFIED UPPER LIMB (12) Prophylactic measure Assessment/Plan: fen ns with K @ 100. clears heparin bid full code protonix Code(s): Z29.9 - ENCOUNTER FOR PROPHYLACTIC MEASURES, UNSPECIFIED Visit type - Emergency Visit Emergency Visit: Yes ED Registration Date: 03/22/19 Care time: The patient presented to the Emergency Department on the above date and was hospitalized for further evaluation of their emergent condition. - New Patient This patient is new to me today: No - Critical Care Critical Care patient: Yes Total Critical Care Time (in minutes): 40 Critical Care Statement: The care of this patient involved high complexity decision making to prevent further life threatening deterioration of the patient 's condition and/or to evaluate & treat vital organ system(s) failure or risk of failure.
[2019-03-24] MEDS: DEXTROSE 5%-LACTATED RINGERS 1,000 ML IV SCH ×2 (13:23→19:02)
--- NOTE | 2019-03-24 16:35 | PN ---
Physical Exam: SUBJECTIVE: Patient seen and examined at bedside. pt states he is feeling better. pt denies SOB, CP, palpitations. pt denies n/v. pt states he is having diarrhea. pt states he tolerated clear diet OBJECTIVE: Vital Signs Period Temp Pulse Resp BP Sys/Garcia Pulse Ox Last 24 Hr 98.1 F-99.6 F 81-111 16-23 124-137/68-93 98-98 GENERAL: The patient is awake, alert, and fully oriented, in no acute distress. LUNGS: Breath sounds equal, clear to auscultation bilaterally, no wheezes, no crackles, no accessory muscle use. HEART: Regular rate and rhythm, S1, S2 without murmur, rub or gallop. ABDOMEN: Soft, mildly tender to palpation RLQ, RUQ, epigastric; nondistended, normoactive bowel sounds, no guarding EXTREMITIES: 2+ pulses, warm, well-perfused, no edema. SKIN: Warm, dry, normal turgor, no rashes or lesions noted Laboratory Last Values WBC 8.4 K/mm3 (4.0-10.0) 03/24/19 05:35 RBC 3.14 M/mm3 (4.00-5.60) L 03/24/19 05:35 Hgb 10.3 GM/dL (11.7-16.9) L 03/24/19 05:35 Hct 30.4 % (35.4-49) L 03/24/19 05:35 MCV 97.0 fl (80-96) H 03/24/19 05:35 MCH 33.0 pg (25.7-33.7) 03/24/19 05:35 MCHC 34.0 g/dl (32.0-35.9) 03/24/19 05:35 RDW 14.0 % (11.9-15.9) 03/24/19 05:35 Plt Count 143 K/MM3 (134-434) 03/24/19 05:35 MPV 9.6 fl (7.5-11.1) 03/24/19 05:35 Absolute Neuts (auto) 6.2 K/mm3 (1.5-8.0) 03/24/19 05:35 Neutrophils % 73.7 % (42.8-82.8) 03/24/19 05:35 Neutrophils % (Manual) 66.7 % (42.8-82.8) 03/24/19 05:35 Band Neutrophils % 5.2 % 03/24/19 05:35 Lymphocytes % 17.8 % (8-40) 03/24/19 05:35 Lymphocytes % (Manual) 17.7 % (8-40) D 03/24/19 05:35 Monocytes % 7.1 % (3.8-10.2) 03/24/19 05:35 Monocytes % (Manual) 6 % (3.8-10.2) 03/24/19 05:35 Eosinophils % 0.7 % (0-4.5) 03/24/19 05:35 Eosinophils % (Manual) 0.0 % (0-4.5) D 03/24/19 05:35 Basophils % 0.7 % (0-2.0) 03/24/19 05:35 Basophils % (Manual) 1.0 % (0-2.0) 03/24/19 05:35 Myelocytes % (Man) 1 % (0-2) D 03/24/19 05:35 Promyelocytes % (Man) 0 % (0-2) 03/24/19 05:35 Blast Cells % (Manual) 0 % (0-0) 03/24/19 05:35 Nucleated RBC % 0 % (0-0) 03/24/19 05:35 Metamyelocytes 0 % (0-2) D 03/24/19 05:35 Hypochromia 0 03/24/19 05:35 Platelet Estimate Decreased 03/24/19 05:35 Polychromasia 0 03/24/19 05:35 Poikilocytosis 0 03/24/19 05:35 Basophilic Stippling 1+ 03/23/19 11:50 Anisocytosis 0 03/24/19 05:35 Microcytosis 0 03/24/19 05:35 Macrocytosis 1+ 03/24/19 05:35 Target Cells 1+ 03/24/19 05:35 Ovalocytes 1+ 03/24/19 05:35 Stomatocytes 1+ 03/23/19 11:50 PT with INR 11.00 SEC (9.7-13.0) 03/23/19 11:50 INR 0.93 (0.83-1.09) 03/23/19 11:50 Sodium 133 mmol/L (136-145) L 03/24/19 05:35 Potassium 3.6 mmol/L (3.5-5.1) 03/24/19 05:35 Chloride 95 mmol/L (98-107) L 03/24/19 05:35 Carbon Dioxide 30 mmol/L (21-32) 03/24/19 05:35 Anion Gap 9 MMOL/L (8-16) 03/24/19 05:35 BUN 3.4 mg/dL (7-18) L 03/24/19 05:35 Creatinine 0.8 mg/dL (0.55-1.3) 03/24/19 05:35 Est GFR (CKD-EPI)AfAm 123.29 03/24/19 05:35 Est GFR (CKD-EPI)NonAf 106.38 03/24/19 05:35 POC Glucometer 198 UNITS (80-120) 03/24/19 13:10 Random Glucose 68 mg/dL (74-106) L 03/24/19 05:35 Hemoglobin A1c % 6.3 % (4.2-6.3) 03/23/19 11:50 Lactic Acid < 0.1 mmol/L (0.4-2.0) L 03/23/19 17:30 Calcium 8.0 mg/dL (8.5-10.1) L 03/24/19 05:35 Phosphorus 1.3 mg/dL (2.5-4.9) L 03/24/19 00:45 Magnesium 1.8 mg/dL (1.8-2.4) 03/24/19 05:35 Total Bilirubin 2.5 mg/dL (0.2-1) H 03/24/19 05:35 AST 297 U/L (15-37) H 03/24/19 05:35 ALT 176 U/L (13-61) H 03/24/19 05:35 Alkaline Phosphatase 237 U/L (45-117) H 03/24/19 05:35 Creatine Kinase 190 U/L (26-308) 03/22/19 17:45 Creatine Kinase Index 1.0 % (0.0-5.0) 03/22/19 17:45 CK-MB (CK-2) 1.9 ng/mL (0.5-3.6) 03/22/19 17:45 Total Protein 5.1 g/dl (6.4-8.2) L 03/24/19 05:35 Albumin 2.2 g/dl (3.4-5.0) L 03/24/19 05:35 Triglycerides 517 mg/dL (0-150) H 03/24/19 05:35 Cholesterol 373 mg/dL (50-200) H 03/24/19 05:35 Total LDL Cholesterol 170 mg/dL (5-100) H 03/24/19 05:35 HDL Cholesterol 16 mg/dL (40-60) L 03/24/19 05:35 Lipase 774 U/L (73-393) H 03/23/19 11:50 Urine Color Dk yellow 03/23/19 14:15 Urine Appearance Clear 03/23/19 14:15 Urine pH 8.0 (5.0-8.0) D 03/23/19 14:15 Ur Specific [place] 1.016 (1.010-1.035) 03/23/19 14:15 Urine Protein 1+ (NEGATIVE) H 03/23/19 14:15 Urine Glucose (UA) Negative (NEGATIVE) 03/23/19 14:15 Urine Ketones 2+ (NEGATIVE) H 03/23/19 14:15 Urine Blood Trace (NEGATIVE) 03/23/19 14:15 Urine Nitrite Negative (NEGATIVE) 03/23/19 14:15 Urine Bilirubin 1+ (NEGATIVE) H 03/23/19 14:15 Urine Urobilinogen 2.0 mg/dL (0.2-1.0) 03/23/19 14:15 Ur Leukocyte Esterase Negative (NEGATIVE) 03/23/19 14:15 Urine WBC (Auto) 1 /hpf (0-5) 03/23/19 14:15 Urine RBC (Auto) 4 /hpf (0-4) 03/23/19 14:15 Urine Casts (Auto) 4 /lpf (0-8) 03/23/19 14:15 U Pathogenic Cast Auto None seen /lpf (NEGATIVE) 03/22/19 10:52 U Epithel Cells (Auto) 2.3 /HPF (0-5/HPF) 03/23/19 14:15 Urine Bacteria (Auto) 4.6 /hpf (NEGATIVE) 03/23/19 14:15 Stool Occult Blood Positive (NEGATIVE) 03/24/19 07:40 Current Medications Chlorhexidine Gluconate (Hibiclens For Decolonization -) 1 applic TP HS [facility] Last Admin: 03/23/19 21:40 Dose: 1 applic Dextrose (D50w (Vial) -) 25 gm IVPUSH Q6H PRN PRN Reason: HYPOGLYCEMIA Fenofibric Acid (Trilipix -) 45 mg PO DAILY [facility] Heparin Sodium (Porcine) (Heparin -) 5,000 unit SQ BID [facility] Last Admin: 03/24/19 09:27 Dose: 5,000 unit Imipenem/Cilastatin Sodium 500 (mg/ Sodium Chloride) 100 mls @ 100 mls/hr IVPB Q8H-IV [facility]; Protocol Last Admin: 03/24/19 13:23 Dose: 100 mls/hr Dextrose/Lactated Ringer's (D5-Lr -) 1,000 mls @ 150 mls/hr IV ASDIR [facility] Last Admin: 03/24/19 13:23 Dose: 150 mls/hr Lorazepam (Ativan Injection -) 1 mg IVPUSH Q6H PRN PRN Reason: WITHDRAWAL(CONT SUBST) Mupirocin (Bactroban Ointment (For Decolonization) -) 1 applic NS BID [facility] Stop: 03/28/19 21:59 Last Admin: 03/24/19 09:27 Dose: 1 applic ASSESSMENT/PLAN: 48yo M PMH of substance abuse (etoh) admitted to ICU for pancreatitis 2/2 alcohol abuse vs triglyceridemia. Neuro: -pt AAOx3 Cardio: -c/w tele monitoring -vitals stable Pulm: -c/w Incentive spirometry GI: Acute Pancreatitis; -s/p Insulin drip -Triglycerides 1600--> 517 -pt tolerated clear liquids, advanced to full liquid diet -MRI to r/o necrotizing pancreatitis -c/w fenofibrate -GI recs appreciated -endo recs appreciated ID -c/w imipenem day 2 F/E/N -full liquid diet -continue to monitor lytes Dispo: continue ICU monitoring Visit type - Emergency Visit Emergency Visit: No - New Patient This patient is new to me today: Yes - Critical Care Critical Care patient: Yes Total Critical Care Time (in minutes): 36 Critical Care Statement: The care of this patient involved high complexity decision making to prevent further life threatening deterioration of the patient 's condition and/or to evaluate & treat vital organ system(s) failure or risk of failure. ATTENDING PHYSICIAN STATEMENT I saw and evaluated the patient. I reviewed the resident's note and discussed the case with the resident. I agree with the resident's findings and plan as documented. SUBJECTIVE: OBJECTIVE: ASSESSMENT AND PLAN:
[2019-03-24 19:37] LABS: CALCIUM 8.5 mg/dL (8.5-10.1); CREATININE 0.8 mg/dL (0.55-1.3); POTASSIUM 3.5 mmol/L (3.5-5.1)
[2019-03-24 20:07] LABS: BLOOD UREA NITROGEN 2.3 mg/dL (7-18)
[2019-03-24] MEDS: CHLORHEXIDINE GLUCONATE 4% CLEANSER FOR DECOLONIZATION TP SCH (22:26)
[2019-03-25] MEDS ORDERED: PT OWN MED DRAWER 7, Y5N ONE ×2 (01:11→17:58)
[2019-03-25] MEDS: IMIPENEM/CILASTATIN SODIUM 500 MG in SODIUM CHLORIDE 100 ML IVPB SCH ×3 (01:27→18:01)
[2019-03-25 06:12] LABS: BASO % 0.7 % (0-2.0); EOS % 0.7 % (0-4.5); HEMATOCRIT 30.4 % (35.4-49); HEMOGLOBIN 10.3 GM/dL (11.7-16.9); LYMPH % 21.3 % (8-40); MCH 32.9 pg (25.7-33.7); MCHC 33.9 g/dl (32.0-35.9); MEAN PLT VOLUME 8.9 fl (7.5-11.1); MONO % 10.4 % (3.8-10.2); NEUT % 66.9 % (42.8-82.8); PLATELET COUNT 194 K/MM3 (134-434); RBC 3.13 M/mm3 (4.00-5.60); RDW 13.9 % (11.9-15.9); WHITE BLOOD COUNT 8.6 K/mm3 (4.0-10.0)
[2019-03-25 07:54] LABS: ALBUMIN 2.3 g/dl (3.4-5.0); BILIRUBIN,TOTAL 1.5 mg/dL (0.2-1); CALCIUM 8.2 mg/dL (8.5-10.1); CREATININE 0.6 mg/dL (0.55-1.3); MAGNESIUM 1.8 mg/dL (1.8-2.4); PHOSPHOROUS 2.5 mg/dL (2.5-4.9); POTASSIUM 3.6 mmol/L (3.5-5.1); TOT PROT 5.3 g/dl (6.4-8.2)
[2019-03-25 08:11] LABS: BLOOD UREA NITROGEN 1.9 mg/dL (7-18)
[2019-03-25] MEDS: HEPARIN NA (PORCINE) 5,000 UNITS/ML 1ML VIAL SQ SCH ×2 (09:34→22:15)
[2019-03-25] MEDS: FENOFIBRIC ACID 45 MG CAP PO SCH (09:34)
--- NOTE | 2019-03-25 10:03 | PN ---
Physical Exam: SUBJECTIVE: Patient seen and examined at the bedside. denies abdominal pain, nausea or vomiting. OBJECTIVE: Patient is a 48 year old male with a significant past medical history of ETOH abuse. He reports that he had a withdrawal seizure 2 years ago and non since. He began vomiting two days prior to admission and was unable to keep anything down. He says the color of his vomitus was yellow, and denies coughing up blood. He reports diffuse abdominal pain, mostly to the upper quadrants, constant and sharp in quality. He notes anorexia and decreased PO intake. The patient also reports upper extremity tremors on admission that have since resolved. During hospital stay, labs revealed elevated triglycerides at 1400, elevated cholesterol levels with elevated liver enzymes. He was transferred to the ICU for an insulin drip. An abdominal MRI is pending as ab ct showed possible pancreatitis with small areas of necrosis. Vital Signs Period Temp Pulse Resp BP Sys/Garcia Pulse Ox Last 24 Hr 98.2 F-98.8 F 88-101 14-24 120-165/86-94 98-98 GENERAL: The patient is awake, alert, and fully oriented, in no acute distress. HEAD: Normal with no signs of trauma. EYES: PERRL, extraocular movements intact, sclera anicteric, conjunctiva clear. No ptosis. ENT: Ears normal, nares patent, oropharynx clear without exudates, moist mucous membranes. NECK: Trachea midline, full range of motion, supple. LUNGS: Breath sounds equal, clear to auscultation bilaterally HEART: Regular rate and rhythm ABDOMEN: + bowel sounds, mildly distended, EXTREMITIES: 2+ pulses, warm, well-perfused, no edema. NEUROLOGICAL: Normal speech, gait not observed. PSYCH: Normal mood, normal affect. SKIN: Warm, dry, normal turgor, no rashes or lesions noted Laboratory Results - last 24 hr 03/24/19 03/24/19 03/24/19 05:35 05:35 07:40 WBC RBC Hgb Hct MCV MCH MCHC RDW Plt Count MPV Absolute Neuts (auto) Neutrophils % Neutrophils % (Manual) 66.7 Band Neutrophils % 5.2 Lymphocytes % Lymphocytes % (Manual) 17.7 D Monocytes % Monocytes % (Manual) 6 Eosinophils % Eosinophils % (Manual) 0.0 D Basophils % Basophils % (Manual) 1.0 Myelocytes % (Man) 1 D Promyelocytes % (Man) 0 Blast Cells % (Manual) 0 Nucleated RBC % Metamyelocytes 0 D Hypochromia 0 Platelet Estimate Decreased Polychromasia 0 Poikilocytosis 0 Anisocytosis 0 Microcytosis 0 Macrocytosis 1+ Target Cells 1+ Ovalocytes 1+ Sodium Potassium Chloride Carbon Dioxide Anion Gap BUN Creatinine Est GFR (CKD-EPI)AfAm Est GFR (CKD-EPI)NonAf POC Glucometer Random Glucose Calcium Phosphorus Magnesium Total Bilirubin AST ALT Alkaline Phosphatase Total Protein Albumin Triglycerides Stool Occult Blood Positive Hep Bs Antibody, Quant 50.4 03/24/19 03/24/19 03/24/19 10:43 13:10 16:59 WBC RBC Hgb Hct MCV MCH MCHC RDW Plt Count MPV Absolute Neuts (auto) Neutrophils % Neutrophils % (Manual) Band Neutrophils % Lymphocytes % Lymphocytes % (Manual) Monocytes % Monocytes % (Manual) Eosinophils % Eosinophils % (Manual) Basophils % Basophils % (Manual) Myelocytes % (Man) Promyelocytes % (Man) Blast Cells % (Manual) Nucleated RBC % Metamyelocytes Hypochromia Platelet Estimate Polychromasia Poikilocytosis Anisocytosis Microcytosis Macrocytosis Target Cells Ovalocytes Sodium Potassium Chloride Carbon Dioxide Anion Gap BUN Creatinine Est GFR (CKD-EPI)AfAm Est GFR (CKD-EPI)NonAf POC Glucometer 170 198 184 Random Glucose Calcium Phosphorus Magnesium Total Bilirubin AST ALT Alkaline Phosphatase Total Protein Albumin Triglycerides Stool Occult Blood Hep Bs Antibody, Quant 03/24/19 03/24/19 03/25/19 17:00 21:53 05:05 WBC 8.6 RBC 3.13 L Hgb 10.3 L Hct 30.4 L MCV 97.0 H MCH 32.9 MCHC 33.9 RDW 13.9 Plt Count 194 D MPV 8.9 Absolute Neuts (auto) 5.8 Neutrophils % 66.9 Neutrophils % (Manual) Band Neutrophils % Lymphocytes % 21.3 Lymphocytes % (Manual) Monocytes % 10.4 H Monocytes % (Manual) Eosinophils % 0.7 Eosinophils % (Manual) Basophils % 0.7 Basophils % (Manual) Myelocytes % (Man) Promyelocytes % (Man) Blast Cells % (Manual) Nucleated RBC % 0 Metamyelocytes Hypochromia Platelet Estimate Polychromasia Poikilocytosis Anisocytosis Microcytosis Macrocytosis Target Cells Ovalocytes Sodium 132 L Potassium 3.5 Chloride 96 L Carbon Dioxide 28 Anion Gap 9 BUN 2.3 L* Creatinine 0.8 Est GFR (CKD-EPI)AfAm 123.29 Est GFR (CKD-EPI)NonAf 106.38 POC Glucometer 226 Random Glucose 232 H Calcium 8.5 Phosphorus Magnesium Total Bilirubin AST ALT Alkaline Phosphatase Total Protein Albumin Triglycerides 409 H Stool Occult Blood Hep Bs Antibody, Quant 03/25/19 03/25/19 05:05 05:42 WBC RBC Hgb Hct MCV MCH MCHC RDW Plt Count MPV Absolute Neuts (auto) Neutrophils % Neutrophils % (Manual) Band Neutrophils % Lymphocytes % Lymphocytes % (Manual) Monocytes % Monocytes % (Manual) Eosinophils % Eosinophils % (Manual) Basophils % Basophils % (Manual) Myelocytes % (Man) Promyelocytes % (Man) Blast Cells % (Manual) Nucleated RBC % Metamyelocytes Hypochromia Platelet Estimate Polychromasia Poikilocytosis Anisocytosis Microcytosis Macrocytosis Target Cells Ovalocytes Sodium 133 L Potassium 3.6 Chloride 97 L Carbon Dioxide 31 Anion Gap 6 L BUN 1.9 L* Creatinine 0.6 Est GFR (CKD-EPI)AfAm 138.77 Est GFR (CKD-EPI)NonAf 119.73 POC Glucometer 142 Random Glucose 142 H Calcium 8.2 L Phosphorus 2.5 Magnesium 1.8 Total Bilirubin 1.5 H AST 223 H ALT 206 H Alkaline Phosphatase 228 H Total Protein 5.3 L Albumin 2.3 L Triglycerides Stool Occult Blood Hep Bs Antibody, Quant Active Medications Generic Name Dose Route Start Last Admin Trade Name Freq PRN Reason Stop Dose Admin Chlorhexidine Gluconate 1 applic 03/23/19 22:00 03/24/19 22:26 Hibiclens For Decolonization - TP 1 applic HS [facility] Administration Dextrose 25 gm 03/23/19 18:05 D50w (Vial) - IVPUSH Q6H PRN HYPOGLYCEMIA Fenofibric Acid 45 mg 03/25/19 10:00 03/25/19 09:34 Trilipix - PO 45 mg DAILY [facility] Administration Heparin Sodium (Porcine) 5,000 unit 03/23/19 22:00 03/25/19 09:34 Heparin - SQ 5,000 unit BID [facility] Administration Imipenem/Cilastatin Sodium 500 100 mls @ 100 mls/hr 03/23/19 02:00 03/25/19 09:35 mg/ Sodium Chloride IVPB 100 mls/hr Q8H-IV [facility] Administration Protocol Lorazepam 1 mg 03/22/19 16:08 Ativan Injection - IVPUSH Q6H PRN WITHDRAWAL(CONT SUBST) Mupirocin 1 applic 03/23/19 22:00 03/24/19 22:26 Bactroban Ointment (For Decolonization) - NS 03/28/19 21:59 1 applic BID [facility] Administration ASSESSMENT/PLAN: Problem List - Problems (1) Hypertriglyceridemia Assessment/Plan: Started on insulin drip for triglyceridemia @ 1400 with elevated cholesterol levels with close icu monitoring. insulin drip discontinued. Triglycerides now in the 400s. elevated ast/alt being monitored with daily labs. patient with acute pancreatitis with small area of necrosis Endocrinology following, notes appreciated Code(s): E78.1 - PURE HYPERGLYCERIDEMIA (2) Acute pancreatitis Assessment/Plan: CTAP 03/22/19: acute pancreatitis with small area of necrosis per imaging. On Imipenem per ID. Continue IV hydration and maintain NPO for continued abdominal pain and nausea. GI/Surgery consulted for further plans. ID following. for an MRI today MRI/MRCP: pending. Code(s): K85.90 - ACUTE PANCREATITIS WITHOUT NECROSIS OR INFECTION, UNSP Qualifiers: Pancreatitis type: alcohol induced Acute pancreatitis complication: unspecified Qualified Code(s): K85.20 - Alcohol induced acute pancreatitis without necrosis or infection (3) Necrosis of pancreas Code(s): K86.89 - OTHER SPECIFIED DISEASES OF PANCREAS (4) Thrombocytopenia Assessment/Plan: resolved Code(s): D69.6 - THROMBOCYTOPENIA, UNSPECIFIED (5) Elevated lipase Assessment/Plan: patient with elevated lipase of 1207 on admission, now trending down. He was found to have acute pancreatitis on imaging with small areas of necrosis. Continue to monitor lipase. Code(s): R74.8 - ABNORMAL LEVELS OF OTHER SERUM ENZYMES (6) Proteinuria Assessment/Plan: +3 urine protein on UA. repeat UA and monitor renal function Code(s): R80.9 - PROTEINURIA, UNSPECIFIED (7) Alcohol withdrawal Assessment/Plan: Denies recent drinking, quit drinking on his own 1 week about w/o seizure activity per patient. moderate CIWA score presently but acceptable w/o withdrawal symptoms. Code(s): F10.239 - ALCOHOL DEPENDENCE WITH WITHDRAWAL, UNSPECIFIED Qualifiers: Complication of substance-induced condition: with unspecified complication Qualified Code(s): F10.239 - Alcohol dependence with withdrawal, unspecified (8) Hypocalcemia Assessment/Plan: monitor daily. corrected calcium 8.3. Code(s): E83.51 - HYPOCALCEMIA (9) Hypokalemia Code(s): E87.6 - HYPOKALEMIA (10) Hyponatremia Assessment/Plan: repeat cmp daily and monitor Code(s): E87.1 - HYPO-OSMOLALITY AND HYPONATREMIA (11) Mass of soft tissue of upper arm Assessment/Plan: left arm mass for a few years that has been increasing in size and causing pain and discomfort. Lipoma? Surgery following Code(s): R22.30 - LOCALIZED SWELLING, MASS AND LUMP, UNSPECIFIED UPPER LIMB (12) Prophylactic measure Assessment/Plan: fen full liquid heparin bid full code protonix Code(s): Z29.9 - ENCOUNTER FOR PROPHYLACTIC MEASURES, UNSPECIFIED Visit type - Emergency Visit Emergency Visit: Yes ED Registration Date: 03/22/19 Care time: The patient presented to the Emergency Department on the above date and was hospitalized for further evaluation of their emergent condition. - New Patient This patient is new to me today: No - Critical Care Critical Care patient: Yes Total Critical Care Time (in minutes): 45 Critical Care Statement: The care of this patient involved high complexity decision making to prevent further life threatening deterioration of the patient 's condition and/or to evaluate & treat vital organ system(s) failure or risk of failure.
[2019-03-25 11:51] LABS: ANISOCYTOSIS 2+; MACROCYTOSIS 0; PLATELET ESTIMATE NORMAL; TARGET CELLS 1+
[2019-03-25] MEDS: MUPIROCIN 2% TOPICAL OINTMENT FOR DECOLONIZATION NS SCH ×2 (11:57→22:16)
--- NOTE | 2019-03-25 13:01 | PN ---
Progress Note, Physician - Current Medication List Current Medications: Active Medications Chlorhexidine Gluconate (Hibiclens For Decolonization -) 1 applic TP HS [facility] Last Admin: 03/24/19 22:26 Dose: 1 applic Dextrose (D50w (Vial) -) 25 gm IVPUSH Q6H PRN PRN Reason: HYPOGLYCEMIA Fenofibric Acid (Trilipix -) 45 mg PO DAILY [facility] Last Admin: 03/25/19 09:34 Dose: 45 mg Heparin Sodium (Porcine) (Heparin -) 5,000 unit SQ BID [facility] Last Admin: 03/25/19 09:34 Dose: 5,000 unit Imipenem/Cilastatin Sodium 500 (mg/ Sodium Chloride) 100 mls @ 100 mls/hr IVPB Q8H-IV [facility]; Protocol Last Admin: 03/25/19 09:35 Dose: 100 mls/hr Lorazepam (Ativan Injection -) 1 mg IVPUSH Q6H PRN PRN Reason: WITHDRAWAL(CONT SUBST) Mupirocin (Bactroban Ointment (For Decolonization) -) 1 applic NS BID [facility] Stop: 03/28/19 21:59 Last Admin: 03/25/19 11:57 Dose: 1 applic - Objective Vital Signs: Vital Signs Temperature 98.0 F 03/25/19 10:00 Pulse Rate 93 H 03/25/19 10:00 Respiratory Rate 20 03/25/19 10:00 Blood Pressure 123/88 03/25/19 10:00 O2 Sat by Pulse Oximetry (%) 98 03/25/19 09:00 Labs: CBC, BMP 03/25/19 05:05 03/25/19 05:05 INR, PTT INR 0.93 (0.83-1.09) 03/23/19 11:50
--- NOTE | 2019-03-25 13:09 | PN ---
Progress Note (short form) - Note Progress Note: PULMONARY/CRITICAL CARE PROGRESS NOTE: SUBJECTIVE: Patient seen and examined in the ICU. Stable. Tolerating PO. No complaints. OBJECTIVE: Current Medications Chlorhexidine Gluconate (Hibiclens For Decolonization -) 1 applic TP HS [facility] Last Admin: 03/24/19 22:26 Dose: 1 applic Dextrose (D50w (Vial) -) 25 gm IVPUSH Q6H PRN PRN Reason: HYPOGLYCEMIA Fenofibric Acid (Trilipix -) 45 mg PO DAILY [facility] Last Admin: 03/25/19 09:34 Dose: 45 mg Heparin Sodium (Porcine) (Heparin -) 5,000 unit SQ BID [facility] Last Admin: 03/25/19 09:34 Dose: 5,000 unit Imipenem/Cilastatin Sodium 500 (mg/ Sodium Chloride) 100 mls @ 100 mls/hr IVPB Q8H-IV [facility]; Protocol Last Admin: 03/25/19 09:35 Dose: 100 mls/hr Lorazepam (Ativan Injection -) 1 mg IVPUSH Q6H PRN PRN Reason: WITHDRAWAL(CONT SUBST) Mupirocin (Bactroban Ointment (For Decolonization) -) 1 applic NS BID [facility] Stop: 03/28/19 21:59 Last Admin: 03/25/19 11:57 Dose: 1 applic Vital Signs Temp 98.0 F 03/25/19 10:00 Pulse 93 H 03/25/19 10:00 Resp 20 03/25/19 10:00 BP 123/88 03/25/19 10:00 Pulse Ox 98 03/25/19 09:00 Intake & Output 03/24/19 03/25/19 03/25/19 18:59 06:59 18:59 Intake Total 1950 0 Output Total 1800 1800 Balance 150 250 Weight 76.657 kg Intake: IV 1850 1650 D5-Lr - 1,000 ml @ 150 1800 1650 mls/hr IV ASDIR [facility] Rx#: [id number] NOVOLIN R VIAL *For 50 IVPUSH or IV DRIP Only* 100 UNITS In Normal Saline - 99 ml @ 0.1 UNITS/KG/HR 7.66 mls/hr IVPB TITR [facility] Rx#: [id number] IVPB 100 100 Oral 300 Output: Urine 1800 1800 Void 1800 1800 Other: Voiding Method Urinal Urinal Urinal # Unmeasured Voids Void 1 1 Bowel Movement Yes No # Bowel Movements 2 Height 5 ft 8 in Body Mass Index (BMI) 25.7 EXAM: GENERAL: alert EYES: R eye blind, clouded, L eye normal ENT: Dry mucus membranes LUNGS: clear HEART: RRR, no murmurs ABDOMEN: Soft, non-tender EXTREMITIES: 2+ pulses, no edema. NEUROLOGICAL: Non-focal CBC, BMP 03/25/19 05:05 03/25/19 05:05 ASSESSMENT/PLAN: Acute Pancreatitis due to ETOH +/- Hypertriglyceridemia Alcohol abuse Hyperglycemia R/O Acute Necrotizing Pancreatitis Anemia -MRI/MRCP: if necrosis may need transfer to tertiary -ABX per ID -PO per GI -O2 as needed -VTE prophylaxis -IVF -Transfer to the floor Mahad Balderas [place]ou/Critical Care RESOLUTION MANAGER
--- NOTE | 2019-03-25 13:19 | PN ---
Progress Note (short form) - Note Progress Note: Attending Surgeon NO c/o; tolerating full liquid diet Last Vital Signs Temp Pulse Resp BP Pulse Ox 98.0 F 93 H 20 123/88 98 03/25/19 10:00 03/25/19 10:00 03/25/19 10:00 03/25/19 10:00 03/25/19 09:00 abdo-soft; flat and non tender; o/w negative. labs reviewed IMP:resolving pancreatitis PLAN: Continue present tx.; suggest f/u CT during this hospital stay. Vic Shipley MD FACS
[2019-03-25 22:11] LABS: HEP B CORE AB, TOT Negative (Negative)
[2019-03-25] MEDS: CHLORHEXIDINE GLUCONATE 4% CLEANSER FOR DECOLONIZATION TP SCH (22:16)
[2019-03-26] MEDS ORDERED: PT OWN MED DRAWER 7, Y5N ONE ×3 (01:29→17:55)
[2019-03-26] MEDS: IMIPENEM/CILASTATIN SODIUM 500 MG in SODIUM CHLORIDE 100 ML IVPB SCH ×3 (01:38→18:16)
[2019-03-26 06:12] LABS: BASO % 1.3 % (0-2.0); EOS % 0.8 % (0-4.5); HEMATOCRIT 30.6 % (35.4-49); HEMOGLOBIN 10.4 GM/dL (11.7-16.9); LYMPH % 23.7 % (8-40); MEAN CELL VOLUME 96.9 fl (80-96); MEAN PLT VOLUME 8.2 fl (7.5-11.1); MONO % 13.4 % (3.8-10.2); NEUT % 60.8 % (42.8-82.8); PLATELET COUNT 292 K/MM3 (134-434); RBC 3.15 M/mm3 (4.00-5.60); WHITE BLOOD COUNT 7.7 K/mm3 (4.0-10.0)
[2019-03-26 06:35] LABS: ALBUMIN 2.4 g/dl (3.4-5.0); BILIRUBIN,TOTAL 1.2 mg/dL (0.2-1); BLOOD UREA NITROGEN 4.2 mg/dL (7-18); CALCIUM 8.6 mg/dL (8.5-10.1); CREATININE 0.6 mg/dL (0.55-1.3); MAGNESIUM 1.7 mg/dL (1.8-2.4); POTASSIUM 3.8 mmol/L (3.5-5.1); TOT PROT 5.4 g/dl (6.4-8.2)
--- NOTE | 2019-03-26 09:16 | PN ---
Physical Exam: SUBJECTIVE: Patient seen and examined in the icu. hungry, wants to eat more. denies abdominal pain, no nausea or vomiting. abdomen soft. OBJECTIVE: Patient is a 48 year old male with a significant past medical history of ETOH abuse. He reports that he had a withdrawal seizure 2 years ago and non since. He began vomiting two days prior to admission and was unable to keep anything down. He says the color of his vomitus was yellow, and denies coughing up blood. On admission, he reported diffuse abdominal pain, mostly to the upper quadrants, constant and sharp in quality. He notes anorexia and decreased PO intake. The patient also reports upper extremity tremors on admission that have since resolved. During hospital stay, labs revealed elevated triglycerides at 1400, elevated cholesterol levels with elevated liver enzymes. He was transferred to the ICU for an insulin drip. An abdominal MRI is pending as ab ct showed possible pancreatitis with small areas of necrosis. His lipase remains elevated. Vital Signs Period Temp Pulse Resp BP Sys/Garcia Pulse Ox Last 24 Hr 98.0 F-98.5 F 82-100 15- 111-127/74-103 98-98 GENERAL: The patient is awake, alert, and fully oriented, in no acute distress. HEAD: Normal with no signs of trauma. EYES: PERRL, extraocular movements intact, sclera anicteric, conjunctiva clear. No ptosis. ENT: Ears normal, nares patent, oropharynx clear without exudates, moist mucous membranes. NECK: Trachea midline, full range of motion, supple. LUNGS: Breath sounds equal, clear to auscultation bilaterally HEART: Regular rate and rhythm ABDOMEN: + bowel sounds, soft, non distended, had bm today. EXTREMITIES: 2+ pulses, warm, well-perfused, no edema. NEUROLOGICAL: Normal speech, gait not observed. PSYCH: Normal mood, normal affect. SKIN: Warm, dry, normal turgor, no rashes or lesions noted Laboratory Results - last 24 hr 03/22/19 03/24/19 03/25/19 15:18 05:35 05:05 WBC RBC Hgb Hct MCV MCH MCHC RDW Plt Count MPV Absolute Neuts (auto) Neutrophils % Neutrophils % (Manual) 62.7 Band Neutrophils % 1.0 Lymphocytes % Lymphocytes % (Manual) 17.7 Monocytes % Monocytes % (Manual) 5 Eosinophils % Eosinophils % (Manual) 0.0 Basophils % Basophils % (Manual) 1.0 Myelocytes % (Man) 4 H D Promyelocytes % (Man) 0 Blast Cells % (Manual) 0 Nucleated RBC % Metamyelocytes 8 H D Hypochromia 1+ Platelet Estimate Normal Polychromasia 1+ Poikilocytosis 0 Anisocytosis 2+ Microcytosis 2+ Macrocytosis 0 Target Cells 1+ Stomatocytes 1+ Sodium Potassium Chloride Carbon Dioxide Anion Gap BUN Creatinine Est GFR (CKD-EPI)AfAm Est GFR (CKD-EPI)NonAf POC Glucometer Random Glucose Calcium Magnesium Total Bilirubin AST ALT Alkaline Phosphatase Total Protein Albumin Lipase C. trachomatis (DEBBIE) Negative Hep A IgM Ab Confirm Negative Hepatitis A Ab Total Positive H Hep Bs Antigen Negative Hep Bs Antibody Reactive Hep B Core Total Ab Negative Hep B Core IgM Ab Negative Hepatitis Be Antibody Negative Hepatitis Be Antigen Negative N. gonorrhoeae (DEBBIE) Negative 03/25/19 03/25/19 03/26/19 11:44 21:54 05:05 WBC 7.7 RBC 3.15 L Hgb 10.4 L Hct 30.6 L MCV 96.9 H MCH 33.0 MCHC 34.0 RDW 14.0 Plt Count 292 D MPV 8.2 Absolute Neuts (auto) 4.7 Neutrophils % 60.8 Neutrophils % (Manual) Band Neutrophils % Lymphocytes % 23.7 Lymphocytes % (Manual) Monocytes % 13.4 H Monocytes % (Manual) Eosinophils % 0.8 Eosinophils % (Manual) Basophils % 1.3 Basophils % (Manual) Myelocytes % (Man) Promyelocytes % (Man) Blast Cells % (Manual) Nucleated RBC % 0 Metamyelocytes Hypochromia Platelet Estimate Polychromasia Poikilocytosis Anisocytosis Microcytosis Macrocytosis Target Cells Stomatocytes Sodium Potassium Chloride Carbon Dioxide Anion Gap BUN Creatinine Est GFR (CKD-EPI)AfAm Est GFR (CKD-EPI)NonAf POC Glucometer 175 228 Random Glucose Calcium Magnesium Total Bilirubin AST ALT Alkaline Phosphatase Total Protein Albumin Lipase C. trachomatis (DEBBIE) Hep A IgM Ab Confirm Hepatitis A Ab Total Hep Bs Antigen Hep Bs Antibody Hep B Core Total Ab Hep B Core IgM Ab Hepatitis Be Antibody Hepatitis Be Antigen N. gonorrhoeae (DEBBIE) 03/26/19 03/26/19 05:05 06:52 WBC RBC Hgb Hct MCV MCH MCHC RDW Plt Count MPV Absolute Neuts (auto) Neutrophils % Neutrophils % (Manual) Band Neutrophils % Lymphocytes % Lymphocytes % (Manual) Monocytes % Monocytes % (Manual) Eosinophils % Eosinophils % (Manual) Basophils % Basophils % (Manual) Myelocytes % (Man) Promyelocytes % (Man) Blast Cells % (Manual) Nucleated RBC % Metamyelocytes Hypochromia Platelet Estimate Polychromasia Poikilocytosis Anisocytosis Microcytosis Macrocytosis Target Cells Stomatocytes Sodium 134 L Potassium 3.8 Chloride 99 Carbon Dioxide 29 Anion Gap 6 L BUN 4.2 L Creatinine 0.6 Est GFR (CKD-EPI)AfAm 138.77 Est GFR (CKD-EPI)NonAf 119.73 POC Glucometer 150 Random Glucose 153 H Calcium 8.6 Magnesium 1.7 L Total Bilirubin 1.2 H AST 157 H ALT 202 H Alkaline Phosphatase 225 H Total Protein 5.4 L Albumin 2.4 L Lipase 884 H C. trachomatis (DEBBIE) Hep A IgM Ab Confirm Hepatitis A Ab Total Hep Bs Antigen Hep Bs Antibody Hep B Core Total Ab Hep B Core IgM Ab Hepatitis Be Antibody Hepatitis Be Antigen N. gonorrhoeae (DEBBIE) Active Medications Generic Name Dose Route Start Last Admin Trade Name Freq PRN Reason Stop Dose Admin Chlorhexidine Gluconate 1 applic 03/23/19 22:00 03/25/19 22:16 Hibiclens For Decolonization - TP 1 applic HS [facility] Administration Dextrose 25 gm 03/23/19 18:05 D50w (Vial) - IVPUSH Q6H PRN HYPOGLYCEMIA Fenofibric Acid 45 mg 03/25/19 10:00 03/25/19 09:34 Trilipix - PO 45 mg DAILY [facility] Administration Heparin Sodium (Porcine) 5,000 unit 03/23/19 22:00 03/25/19 22:15 Heparin - SQ 5,000 unit BID [facility] Administration Imipenem/Cilastatin Sodium 500 100 mls @ 100 mls/hr 03/23/19 02:00 03/26/19 01:38 mg/ Sodium Chloride IVPB 100 mls/hr Q8H-IV [facility] Administration Protocol Lorazepam 1 mg 03/22/19 16:08 Ativan Injection - IVPUSH Q6H PRN WITHDRAWAL(CONT SUBST) Mupirocin 1 applic 03/23/19 22:00 03/25/19 22:16 Bactroban Ointment (For Decolonization) - NS 03/28/19 21:59 1 applic BID [facility] Administration ASSESSMENT/PLAN: Problem List - Problems (1) Hypertriglyceridemia Assessment/Plan: Started on insulin drip for triglyceridemia @ 1400 with elevated cholesterol levels with close icu monitoring. insulin drip discontinued and triglycerides are now more stable. now On fenofibric. elevated ast/alt being monitored with daily labs and continues to trend down. patient with acute pancreatitis with small area of necrosis per recent imaging. per GI, will need repeat imaging. Endocrinology following, notes appreciated Code(s): E78.1 - PURE HYPERGLYCERIDEMIA (2) Acute pancreatitis Assessment/Plan: per GI, can advance diet. recommended a repeat CT in 4 weeks to r/o pancreatic neoplasm. Code(s): K85.90 - ACUTE PANCREATITIS WITHOUT NECROSIS OR INFECTION, UNSP Qualifiers: Pancreatitis type: alcohol induced Acute pancreatitis complication: unspecified Qualified Code(s): K85.20 - Alcohol induced acute pancreatitis without necrosis or infection (3) Necrosis of pancreas Code(s): K86.89 - OTHER SPECIFIED DISEASES OF PANCREAS (4) Thrombocytopenia Assessment/Plan: resolved Code(s): D69.6 - THROMBOCYTOPENIA, UNSPECIFIED (5) Elevated lipase Assessment/Plan: patient with elevated lipase of 1207 on admission, now 900s. He was found to have acute pancreatitis on imaging with small areas of necrosis. Continue to monitor lipase. Code(s): R74.8 - ABNORMAL LEVELS OF OTHER SERUM ENZYMES (6) Proteinuria Assessment/Plan: +3 urine protein on UA. repeat UA and monitor renal function Code(s): R80.9 - PROTEINURIA, UNSPECIFIED (7) Alcohol withdrawal Assessment/Plan: Denies recent drinking, quit drinking on his own 1 week about w/o seizure activity per patient. moderate CIWA score presently but acceptable w/o withdrawal symptoms. Code(s): F10.239 - ALCOHOL DEPENDENCE WITH WITHDRAWAL, UNSPECIFIED Qualifiers: Complication of substance-induced condition: with unspecified complication Qualified Code(s): F10.239 - Alcohol dependence with withdrawal, unspecified (8) Hypocalcemia Assessment/Plan: monitor daily. corrected calcium 8.3. Code(s): E83.51 - HYPOCALCEMIA (9) Hypokalemia Assessment/Plan: resolved. Code(s): E87.6 - HYPOKALEMIA (10) Hyponatremia Assessment/Plan: repeat cmp daily and monitor Code(s): E87.1 - HYPO-OSMOLALITY AND HYPONATREMIA (11) Mass of soft tissue of upper arm Assessment/Plan: left arm mass for a few years that has been increasing in size and causing pain and discomfort. Lipoma? Surgery following Code(s): R22.30 - LOCALIZED SWELLING, MASS AND LUMP, UNSPECIFIED UPPER LIMB (12) Prophylactic measure Assessment/Plan: fen full liquid heparin bid full code protonix Code(s): Z29.9 - ENCOUNTER FOR PROPHYLACTIC MEASURES, UNSPECIFIED Visit type - Emergency Visit Emergency Visit: Yes ED Registration Date: 03/22/19 Care time: The patient presented to the Emergency Department on the above date and was hospitalized for further evaluation of their emergent condition. - New Patient This patient is new to me today: No - Critical Care Critical Care patient: Yes Total Critical Care Time (in minutes): 45 Critical Care Statement: The care of this patient involved high complexity decision making to prevent further life threatening deterioration of the patient 's condition and/or to evaluate & treat vital organ system(s) failure or risk of failure.
--- NOTE | 2019-03-26 09:36 | PN ---
Progress Note (short form) - Note Progress Note: PULMONARY/CRITICAL CARE PROGRESS NOTE: SUBJECTIVE: Patient seen and examined in the ICU. Stable. MRI done OBJECTIVE: Current Medications Chlorhexidine Gluconate (Hibiclens For Decolonization -) 1 applic TP HS [facility] Last Admin: 03/25/19 22:16 Dose: 1 applic Dextrose (D50w (Vial) -) 25 gm IVPUSH Q6H PRN PRN Reason: HYPOGLYCEMIA Fenofibric Acid (Trilipix -) 45 mg PO DAILY [facility] Last Admin: 03/25/19 09:34 Dose: 45 mg Heparin Sodium (Porcine) (Heparin -) 5,000 unit SQ BID [facility] Last Admin: 03/25/19 22:15 Dose: 5,000 unit Imipenem/Cilastatin Sodium 500 (mg/ Sodium Chloride) 100 mls @ 100 mls/hr IVPB Q8H-IV [facility]; Protocol Last Admin: 03/26/19 01:38 Dose: 100 mls/hr Lorazepam (Ativan Injection -) 1 mg IVPUSH Q6H PRN PRN Reason: WITHDRAWAL(CONT SUBST) Magnesium Oxide (Mag-Ox -) 400 mg PO ONCE ONE Stop: 03/26/19 09:46 Mupirocin (Bactroban Ointment (For Decolonization) -) 1 applic NS BID [facility] Stop: 03/28/19 21:59 Last Admin: 03/25/19 22:16 Dose: 1 applic Vital Signs Temp 98.4 F 03/26/19 06:00 Pulse 86 03/26/19 08:00 Resp 18 03/26/19 08:00 BP 115/74 03/26/19 08:00 Pulse Ox 98 03/26/19 09:00 Intake & Output 03/25/19 03/26/19 03/26/19 18:59 06:59 18:59 Intake Total 900 600 Output Total 700 800 Balance 200 -200 Intake: IVPB 100 100 Oral 800 500 Output: Urine 700 800 Void 700 800 Other: Voiding Method Urinal Urinal Urinal # Unmeasured Voids Void 2 2 EXAM: GENERAL: alert EYES: R eye blind, clouded, L eye normal ENT: Dry mucus membranes LUNGS: clear HEART: RRR, no murmurs ABDOMEN: Soft, non-tender EXTREMITIES: 2+ pulses, no edema. NEUROLOGICAL: Non-focal CBC, BMP 03/26/19 05:05 03/26/19 05:05 ASSESSMENT/PLAN: Acute Pancreatitis due to ETOH +/- Hypertriglyceridemia Alcohol abuse Hyperglycemia R/O Acute Necrotizing Pancreatitis Anemia -MRI/MRCP - f/u result -ABX per ID -PO per GI -O2 as needed -VTE prophylaxis -IVF -Transfer to the floor Mahad Gonzales/Critical Care GRAIN [employer]ER
[2019-03-26] MEDS ORDERED: MAGNESIUM OXIDE 400 MG TABLET (FP) PO ONE (09:45)
[2019-03-26] MEDS: HEPARIN NA (PORCINE) 5,000 UNITS/ML 1ML VIAL SQ SCH ×2 (09:46→21:03)
[2019-03-26] MEDS: FENOFIBRIC ACID 45 MG CAP PO SCH (09:48)
[2019-03-26] MEDS: MUPIROCIN 2% TOPICAL OINTMENT FOR DECOLONIZATION NS SCH ×2 (09:49→21:07)
[2019-03-26 10:52] LABS: ANISOCYTOSIS 1+; MACROCYTOSIS 1+; PLATELET ESTIMATE NORMAL; TARGET CELLS 1+
--- NOTE | 2019-03-26 13:04 | PN ---
Progress Note, Physician History of Present Illness: stable no new issues mri done awaiting results - Current Medication List Current Medications: Active Medications Chlorhexidine Gluconate (Hibiclens For Decolonization -) 1 applic TP HS [facility] Last Admin: 03/25/19 22:16 Dose: 1 applic Dextrose (D50w (Vial) -) 25 gm IVPUSH Q6H PRN PRN Reason: HYPOGLYCEMIA Fenofibric Acid (Trilipix -) 45 mg PO DAILY [facility] Last Admin: 03/26/19 09:48 Dose: 45 mg Heparin Sodium (Porcine) (Heparin -) 5,000 unit SQ BID [facility] Last Admin: 03/26/19 09:46 Dose: 5,000 unit Imipenem/Cilastatin Sodium 500 (mg/ Sodium Chloride) 100 mls @ 100 mls/hr IVPB Q8H-IV [facility]; Protocol Last Admin: 03/26/19 09:45 Dose: 100 mls/hr Lorazepam (Ativan Injection -) 1 mg IVPUSH Q6H PRN PRN Reason: WITHDRAWAL(CONT SUBST) Mupirocin (Bactroban Ointment (For Decolonization) -) 1 applic NS BID [facility] Stop: 03/28/19 21:59 Last Admin: 03/26/19 09:49 Dose: 1 applic - Objective Vital Signs: Vital Signs Temperature 98.4 F 03/26/19 06:00 Pulse Rate 86 03/26/19 08:00 Respiratory Rate 18 03/26/19 08:00 Blood Pressure 115/74 03/26/19 08:00 O2 Sat by Pulse Oximetry (%) 98 03/26/19 09:00 Constitutional: Yes: No Distress, Calm Cardiovascular: Yes: Regular Rate and Rhythm Respiratory: Yes: Regular, CTA Bilaterally Gastrointestinal: Yes: Normal Bowel Sounds, Soft Musculoskeletal: Yes: WNL Extremities: Yes: WNL Neurological: Yes: Alert, Oriented Labs: CBC, BMP 03/26/19 05:05 03/26/19 05:05 INR, PTT INR 0.93 (0.83-1.09) 03/23/19 11:50 Assessment/Plan Problem List - Problems (1) Hypertriglyceridemia Code(s): E78.1 - PURE HYPERGLYCERIDEMIA (2) Acute pancreatitis Code(s): K85.90 - ACUTE PANCREATITIS WITHOUT NECROSIS OR INFECTION, UNSP Qualifiers: Pancreatitis type: alcohol induced Acute pancreatitis complication: unspecified Qualified Code(s): K85.20 - Alcohol induced acute pancreatitis without necrosis or infection (3) Necrosis of pancreas Code(s): K86.89 - OTHER SPECIFIED DISEASES OF PANCREAS (4) Thrombocytopenia Code(s): D69.6 - THROMBOCYTOPENIA, UNSPECIFIED (5) Elevated lipase Code(s): R74.8 - ABNORMAL LEVELS OF OTHER SERUM ENZYMES (6) Proteinuria Code(s): R80.9 - PROTEINURIA, UNSPECIFIED (7) Alcohol withdrawal Code(s): F10.239 - ALCOHOL DEPENDENCE WITH WITHDRAWAL, UNSPECIFIED Qualifiers: Complication of substance-induced condition: with unspecified complication Qualified Code(s): F10.239 - Alcohol dependence with withdrawal, unspecified (8) Hypocalcemia Code(s): E83.51 - HYPOCALCEMIA (9) Hypokalemia Code(s): E87.6 - HYPOKALEMIA (10) Hyponatremia Code(s): E87.1 - HYPO-OSMOLALITY AND HYPONATREMIA (11) Mass of soft tissue of upper arm Code(s): R22.30 - LOCALIZED SWELLING, MASS AND LUMP, UNSPECIFIED UPPER LIMB plan continue treatment as per icu continue abx surgery on case close monitoring hydration as per gi await for mri results cc 40 min
--- NOTE | 2019-03-26 15:37 | PN.GI ---
GI Progress Note Subjective: history of acute pancreatitis secondary to alcohol abuse and elevated triglycerides MRI qustionable focus in the head of the pancreas and possible cyst in the tail of the panceas for the past 3 days no significant abdominal pain - Objective Vital Signs: Vital Signs Temperature 98.2 F 03/26/19 14:00 Pulse Rate 83 03/26/19 14:00 Respiratory Rate 18 03/26/19 14:00 Blood Pressure 140/82 03/26/19 14:00 O2 Sat by Pulse Oximetry (%) 98 03/26/19 09:00 Constitutional: Well Nourished Eyes: Yes: Conjunctiva Clear HENT: Yes: Atraumatic Neck: Yes: Supple Cardiovascular: Yes: Regular Rate and Rhythm Respiratory: Yes: CTA Bilaterally ...Palpate: Yes: Soft. No: Firm/Rigid, Guarding, Hepatomegaly, Mass, Pulsatile Mass, Splenomegaly ...Percussion: No: Tympanitic Labs: CBC, BMP 03/26/19 05:05 03/26/19 05:05 INR, PTT INR 0.93 (0.83-1.09) 03/23/19 11:50 Problem List - Problems (1) Acute pancreatitis Assessment/Plan: R> advance diet repeat ct in 4 weeks to r/o pancreatic neoplasm Dr Ran ayala resume care in am Code(s): K85.90 - ACUTE PANCREATITIS WITHOUT NECROSIS OR INFECTION, UNSP Qualifiers: Pancreatitis type: alcohol induced Acute pancreatitis complication: unspecified Qualified Code(s): K85.20 - Alcohol induced acute pancreatitis without necrosis or infection
[2019-03-26] MEDS: CHLORHEXIDINE GLUCONATE 4% CLEANSER FOR DECOLONIZATION TP SCH (21:03)
[2019-03-27] MEDS: IMIPENEM/CILASTATIN SODIUM 500 MG in SODIUM CHLORIDE 100 ML IVPB SCH ×3 (01:16→18:03)
[2019-03-27 06:32] LABS: BASO % 0.9 % (0-2.0); HEMATOCRIT 30.8 % (35.4-49); HEMOGLOBIN 10.3 GM/dL (11.7-16.9); LYMPH % 27.9 % (8-40); MCH 32.5 pg (25.7-33.7); MCHC 33.3 g/dl (32.0-35.9); MEAN CELL VOLUME 97.6 fl (80-96); MEAN PLT VOLUME 8.1 fl (7.5-11.1); MONO % 15.2 % (3.8-10.2); PLATELET COUNT 403 K/MM3 (134-434); RBC 3.15 M/mm3 (4.00-5.60); RDW 14.3 % (11.9-15.9)
[2019-03-27 06:54] LABS: ALBUMIN 2.6 g/dl (3.4-5.0); BILIRUBIN,TOTAL 0.9 mg/dL (0.2-1); BLOOD UREA NITROGEN 6.3 mg/dL (7-18); CALCIUM 8.9 mg/dL (8.5-10.1); CREATININE 0.7 mg/dL (0.55-1.3); POTASSIUM 4.3 mmol/L (3.5-5.1); TOT PROT 5.7 g/dl (6.4-8.2)
--- NOTE | 2019-03-27 08:58 | PN ---
Progress Note (short form) - Note Progress Note: Pt without complaints. No nausea or emesis. Tolerated regular diet. Vital Signs Period Temp Pulse Resp BP Sys/Garcia Pulse Ox Last 24 Hr 97.5 F-98.5 F 79-98 17- 92-140/54-84 98 GEN: A&0x3, NAD ABD: soft, non-distended, non-tender CBC, BMP 03/27/19 05:40 03/27/19 05:40 Laboratory Tests 03/26/19 03/27/19 05:05 05:40 Total Bilirubin 0.9 AST 109 H ALT 176 H Alkaline Phosphatase 224 H Total Protein 5.7 L Albumin 2.6 L Lipase 884 H MRI: 03/25: acute pancreatitis with acute peripancreatic fluid collection. No choleducholithiasis. 11mm cyst in pancreatic duct A/P: 48 yo male with resolving pancreatitis, afebrile and tolerating diet Repeat imaging reveals acute pancreatitis with fluid collection. IV abx as per ID continue as per ID recommendations No acute surgical issues, his abdomen remains non-tender Suggest to follow up as outpt with GI, recommend repeat abdominal imaging as an outpt to monitor for pseduocyst formation D/w Dr. Shipley
[2019-03-27] MEDS ORDERED: PT OWN MED DRAWER 7, Y5N ONE ×2 (09:39→18:53)
[2019-03-27 10:41] LABS: ANISOCYTOSIS 1+; MACROCYTOSIS 0; PLATELET ESTIMATE NORMAL
[2019-03-27] MEDS: HEPARIN NA (PORCINE) 5,000 UNITS/ML 1ML VIAL SQ SCH ×2 (10:47→21:39)
[2019-03-27] MEDS: FENOFIBRIC ACID 45 MG CAP PO SCH (10:49)
[2019-03-27] MEDS: MUPIROCIN 2% TOPICAL OINTMENT FOR DECOLONIZATION NS SCH (10:50)
--- NOTE | 2019-03-27 12:32 | PN ---
Teaching Attending Note Name of Resident: Bipin Persaud ATTENDING PHYSICIAN STATEMENT I saw and evaluated the patient. I reviewed the resident's note and discussed the case with the resident. I agree with the resident's findings and plan as documented. SUBJECTIVE: Patient seen and examined in the ICU. Feels overall better. Tolerating PO intake. No CP or SOB. No acute events overnight. Intake & Output 03/24/19 03/25/19 03/26/19 03/27/19 23:59 23:59 23:59 23:59 Intake Total 5946 2250 1500 600 Output Total 4600 2700 Balance 1346 -450 1500 600 Weight 169 lb 168 lb 3.2 oz Last Vital Signs Temp Pulse Resp BP Pulse Ox 98.8 F 84 18 100/66 98 03/27/19 10:00 03/27/19 10:00 03/27/19 10:00 03/27/19 10:00 03/27/19 09:00 Active Medications Chlorhexidine Gluconate (Hibiclens For Decolonization -) 1 applic TP HS [facility] Last Admin: 03/26/19 21:03 Dose: 1 applic Dextrose (D50w (Vial) -) 25 gm IVPUSH Q6H PRN PRN Reason: HYPOGLYCEMIA Fenofibric Acid (Trilipix -) 45 mg PO DAILY [facility] Last Admin: 03/27/19 10:49 Dose: 45 mg Heparin Sodium (Porcine) (Heparin -) 5,000 unit SQ BID [facility] Last Admin: 03/27/19 10:47 Dose: 5,000 unit Imipenem/Cilastatin Sodium 500 (mg/ Sodium Chloride) 100 mls @ 100 mls/hr IVPB Q8H-IV [facility]; Protocol Last Admin: 03/27/19 10:48 Dose: 100 mls/hr Lorazepam (Ativan Injection -) 1 mg IVPUSH Q6H PRN PRN Reason: WITHDRAWAL(CONT SUBST) Mupirocin (Bactroban Ointment (For Decolonization) -) 1 applic NS BID [facility] Stop: 03/28/19 21:59 Last Admin: 03/27/19 10:50 Dose: 1 applic EXAM: GENERAL: awake and alert, NAD EYES: R eye blind, clouded, L eye normal ENT: Dry mucus membranes LUNGS: clear HEART: RRR, no murmurs ABDOMEN: Soft, non-tender EXTREMITIES: 2+ pulses, no edema. NEUROLOGICAL: Non-focal Laboratory Results - last 24 hr 03/26/19 03/26/19 03/26/19 12:28 17:05 20:40 WBC RBC Hgb Hct MCV MCH MCHC RDW Plt Count MPV Absolute Neuts (auto) Neutrophils % Neutrophils % (Manual) Band Neutrophils % Lymphocytes % Lymphocytes % (Manual) Monocytes % Monocytes % (Manual) Eosinophils % Eosinophils % (Manual) Basophils % Basophils % (Manual) Myelocytes % (Man) Promyelocytes % (Man) Blast Cells % (Manual) Nucleated RBC % Metamyelocytes Hypochromia Platelet Estimate Polychromasia Poikilocytosis Anisocytosis Microcytosis Macrocytosis Spherocytes Stomatocytes Sodium Potassium Chloride Carbon Dioxide Anion Gap BUN Creatinine Est GFR (CKD-EPI)AfAm Est GFR (CKD-EPI)NonAf POC Glucometer 175 181 224 Random Glucose Calcium Magnesium Total Bilirubin AST ALT Alkaline Phosphatase Total Protein Albumin 03/27/19 03/27/19 03/27/19 05:23 05:40 05:40 WBC 9.0 RBC 3.15 L Hgb 10.3 L Hct 30.8 L MCV 97.6 H MCH 32.5 MCHC 33.3 RDW 14.3 Plt Count 403 D MPV 8.1 Absolute Neuts (auto) 4.9 Neutrophils % 55.0 Neutrophils % (Manual) 46.9 Band Neutrophils % 0.0 Lymphocytes % 27.9 Lymphocytes % (Manual) 25.5 Monocytes % 15.2 H Monocytes % (Manual) 13 H Eosinophils % 1.0 Eosinophils % (Manual) 1.0 Basophils % 0.9 Basophils % (Manual) 1.0 Myelocytes % (Man) 10 H D Promyelocytes % (Man) 0 Blast Cells % (Manual) 0 Nucleated RBC % 0 Metamyelocytes 2 D Hypochromia 0 Platelet Estimate Normal Polychromasia 1+ Poikilocytosis 0 Anisocytosis 1+ Microcytosis 0 Macrocytosis 0 Spherocytes 1+ Stomatocytes 1+ Sodium 135 L Potassium 4.3 Chloride 100 Carbon Dioxide 28 Anion Gap 7 L BUN 6.3 L Creatinine 0.7 Est GFR (CKD-EPI)AfAm 130.25 Est GFR (CKD-EPI)NonAf 112.38 POC Glucometer 173 Random Glucose 162 H Calcium 8.9 Magnesium 2.0 Total Bilirubin 0.9 AST 109 H ALT 176 H Alkaline Phosphatase 224 H Total Protein 5.7 L Albumin 2.6 L 03/27/19 11:25 WBC RBC Hgb Hct MCV MCH MCHC RDW Plt Count MPV Absolute Neuts (auto) Neutrophils % Neutrophils % (Manual) Band Neutrophils % Lymphocytes % Lymphocytes % (Manual) Monocytes % Monocytes % (Manual) Eosinophils % Eosinophils % (Manual) Basophils % Basophils % (Manual) Myelocytes % (Man) Promyelocytes % (Man) Blast Cells % (Manual) Nucleated RBC % Metamyelocytes Hypochromia Platelet Estimate Polychromasia Poikilocytosis Anisocytosis Microcytosis Macrocytosis Spherocytes Stomatocytes Sodium Potassium Chloride Carbon Dioxide Anion Gap BUN Creatinine Est GFR (CKD-EPI)AfAm Est GFR (CKD-EPI)NonAf POC Glucometer 205 Random Glucose Calcium Magnesium Total Bilirubin AST ALT Alkaline Phosphatase Total Protein Albumin ASSESSMENT/PLAN: Acute Pancreatitis due to ETOH +/- Hypertriglyceridemia Alcohol abuse Hyperglycemia Small areas of Necrotizing Pancreatitis noted on imaging Anemia -ABX per ID -PO per GI -O2 as needed -VTE prophylaxis -IVF -Transfer to the floor / DC planning Dr Morales
--- NOTE | 2019-03-27 14:04 | PN ---
Physical Exam: SUBJECTIVE: Patient seen and examined at bedside in the ICU. Reports that he is feeling better overall. Able to advance diet as tolerated. Denies chest pain, shortness of breath, abdominal pain, nausea/vomiting. No acute events overnight. OBJECTIVE: Vital Signs Period Temp Pulse Resp BP Sys/Garcia Pulse Ox Last 24 Hr 97.5 F-98.8 F 79-98 17-22 92-141/54-84 98-98 GENERAL: The patient is awake, alert, and fully oriented, in no acute distress. HEAD: Normal with no signs of trauma. EYES: PERRL, extraocular movements intact, sclera icterus bilaterally, conjunctiva clear. No ptosis. Right eye clouded. ENT: Ears normal, nares patent, oropharynx clear without exudates, dry mucous membranes. NECK: Trachea midline, full range of motion, supple. LUNGS: Breath sounds equal, clear to auscultation bilaterally, no wheezes, no crackles, no accessory muscle use. HEART: Regular rate and rhythm, S1, S2 without murmur, rub or gallop. ABDOMEN: Soft, nontender, nondistended, normoactive bowel sounds, no guarding, no rebound, no hepatosplenomegaly, no masses. EXTREMITIES: 2+ pulses, warm, well-perfused, no edema. NEUROLOGICAL: Cranial nerves II through XII grossly intact. Normal speech, gait not observed. PSYCH: Normal mood, normal affect. SKIN: Warm, dry, normal turgor, no rashes or lesions noted Laboratory Results - last 24 hr 03/26/19 03/26/19 03/27/19 17:05 20:40 05:23 WBC RBC Hgb Hct MCV MCH MCHC RDW Plt Count MPV Absolute Neuts (auto) Neutrophils % Neutrophils % (Manual) Band Neutrophils % Lymphocytes % Lymphocytes % (Manual) Monocytes % Monocytes % (Manual) Eosinophils % Eosinophils % (Manual) Basophils % Basophils % (Manual) Myelocytes % (Man) Promyelocytes % (Man) Blast Cells % (Manual) Nucleated RBC % Metamyelocytes Hypochromia Platelet Estimate Polychromasia Poikilocytosis Anisocytosis Microcytosis Macrocytosis Spherocytes Stomatocytes Sodium Potassium Chloride Carbon Dioxide Anion Gap BUN Creatinine Est GFR (CKD-EPI)AfAm Est GFR (CKD-EPI)NonAf POC Glucometer 181 224 173 Random Glucose Calcium Magnesium Total Bilirubin AST ALT Alkaline Phosphatase Total Protein Albumin 03/27/19 03/27/19 03/27/19 05:40 05:40 11:25 WBC 9.0 RBC 3.15 L Hgb 10.3 L Hct 30.8 L MCV 97.6 H MCH 32.5 MCHC 33.3 RDW 14.3 Plt Count 403 D MPV 8.1 Absolute Neuts (auto) 4.9 Neutrophils % 55.0 Neutrophils % (Manual) 46.9 Band Neutrophils % 0.0 Lymphocytes % 27.9 Lymphocytes % (Manual) 25.5 Monocytes % 15.2 H Monocytes % (Manual) 13 H Eosinophils % 1.0 Eosinophils % (Manual) 1.0 Basophils % 0.9 Basophils % (Manual) 1.0 Myelocytes % (Man) 10 H D Promyelocytes % (Man) 0 Blast Cells % (Manual) 0 Nucleated RBC % 0 Metamyelocytes 2 D Hypochromia 0 Platelet Estimate Normal Polychromasia 1+ Poikilocytosis 0 Anisocytosis 1+ Microcytosis 0 Macrocytosis 0 Spherocytes 1+ Stomatocytes 1+ Sodium 135 L Potassium 4.3 Chloride 100 Carbon Dioxide 28 Anion Gap 7 L BUN 6.3 L Creatinine 0.7 Est GFR (CKD-EPI)AfAm 130.25 Est GFR (CKD-EPI)NonAf 112.38 POC Glucometer 205 Random Glucose 162 H Calcium 8.9 Magnesium 2.0 Total Bilirubin 0.9 AST 109 H ALT 176 H Alkaline Phosphatase 224 H Total Protein 5.7 L Albumin 2.6 L Active Medications Generic Name Dose Route Start Last Admin Trade Name Freq PRN Reason Stop Dose Admin Chlorhexidine Gluconate 1 applic 03/23/19 22:00 03/26/19 21:03 Hibiclens For Decolonization - TP 1 applic HS [facility] Administration Dextrose 25 gm 03/23/19 18:05 D50w (Vial) - IVPUSH Q6H PRN HYPOGLYCEMIA Fenofibric Acid 45 mg 03/25/19 10:00 03/27/19 10:49 Trilipix - PO 45 mg DAILY [facility] Administration Heparin Sodium (Porcine) 5,000 unit 03/23/19 22:00 03/27/19 10:47 Heparin - SQ 5,000 unit BID [facility] Administration Imipenem/Cilastatin Sodium 500 100 mls @ 100 mls/hr 03/23/19 02:00 03/27/19 10:48 mg/ Sodium Chloride IVPB 100 mls/hr Q8H-IV [facility] Administration Protocol Lorazepam 1 mg 03/22/19 16:08 Ativan Injection - IVPUSH Q6H PRN WITHDRAWAL(CONT SUBST) Mupirocin 1 applic 03/23/19 22:00 03/27/19 10:50 Bactroban Ointment (For Decolonization) - NS 03/28/19 21:59 1 applic BID [facility] Administration ASSESSMENT/PLAN: 48yo M PMH of substance abuse (etoh) admitted to ICU for pancreatitis 2/2 alcohol abuse vs triglyceridemia. Neuro: -pt AAOx3 Cardio: -vitals stable Pulm: -c/w Incentive spirometry GI: Acute Pancreatitis; -s/p Insulin drip -Triglycerides 1600--> 517 -pt tolerated clear liquids, diet advance as tolerated -MRI shows diffuse acute pancreatitis, acute peripancreatic fluid collection, 1.5 cm focus of parenchymal necrosis involving the pancreatic head with peripancreatic necrosis -c/w fenofibrate ID -c/w imipenem day 5 F/E/N -advance diet as tolerated -continue to monitor lytes Dispo: transfer to med/surg floor. f/u outpatient to r/o pancreas mass Visit type - Emergency Visit Emergency Visit: Yes ED Registration Date: 03/22/19 Care time: The patient presented to the Emergency Department on the above date and was hospitalized for further evaluation of their emergent condition. - New Patient This patient is new to me today: Yes Date on this admission: 03/28/19 - Critical Care Critical Care patient: Yes Total Critical Care Time (in minutes): 35 Critical Care Statement: The care of this patient involved high complexity decision making to prevent further life threatening deterioration of the patient 's condition and/or to evaluate & treat vital organ system(s) failure or risk of failure. ATTENDING PHYSICIAN STATEMENT I saw and evaluated the patient. I reviewed the resident's note and discussed the case with the resident. I agree with the resident's findings and plan as documented. SUBJECTIVE: OBJECTIVE: ASSESSMENT AND PLAN:
[2019-03-27] MEDS ORDERED: PNEUMOC 13-VAL CONJ-DIP CRM/PF 0.5 ML DISP.SYRIN IM ONE (15:01)
[2019-03-27] MEDS ORDERED: PNEUMOCOCCAL 23 VACCINE 0.5 ML VIAL IM ONE (15:15)
--- NOTE | 2019-03-27 15:18 | PN.GI ---
GI Progress Note Subjective: Pt seen/examined at bedside, feeling well, abdominal pain resolved, tolerating diet. Denies n/v. Moving bowels. Denies fever/chills. - Objective Vital Signs: Vital Signs Temperature 98.8 F 03/27/19 10:00 Pulse Rate 95 H 03/27/19 12:00 Respiratory Rate 18 03/27/19 12:00 Blood Pressure 141/77 03/27/19 12:00 O2 Sat by Pulse Oximetry (%) 98 03/27/19 09:00 Constitutional: Well Nourished, No Distress, Calm Cardiovascular: Yes: Regular Rate and Rhythm Respiratory: Yes: WNL, Regular, CTA Bilaterally ...Palpate: Yes: Other (Abd soft, nt, nd) Labs: CBC, BMP 03/27/19 05:40 03/27/19 05:40 INR, PTT INR 0.93 (0.83-1.09) 03/23/19 11:50 Problem List - Problems (1) Acute pancreatitis Assessment/Plan: in setting of etoh and elevated triglycerides s/p MRCP revealing pancreatitis with possible 1.5cm focus of necrosis at pancreatic head and 11mm pancreatic neck cyst. Clinically improved. Tolerating diet. No leucocytosis or fever. -Continue conservative measures -Possibly acute collection vs sterile necrosis though clinically doing well and could likely monitor off antibiotics -ID following -Diet (low fat) as tolerated -Continue to monitor LFTs to ensure normalization -Strict etoh abstinence advised -Management of hypertriglyceridemia per endo -Pt would require repeat CT (pancreatic protocol) and possible EUS to re- evaluate the pancreas in 4-6 weeks Code(s): K85.90 - ACUTE PANCREATITIS WITHOUT NECROSIS OR INFECTION, UNSP Qualifiers: Pancreatitis type: alcohol induced Acute pancreatitis complication: unspecified Qualified Code(s): K85.20 - Alcohol induced acute pancreatitis without necrosis or infection
--- NOTE | 2019-03-27 17:06 | PN ---
Physical Exam: SUBJECTIVE: Patient seen and examined. wants to go home by tomorrow, wants to go back to work. OBJECTIVE: Patient is a 48 year old male with a significant past medical history of ETOH abuse. He reports that he had a withdrawal seizure 2 years ago and non since. He began vomiting two days prior to admission and was unable to keep anything down. He says the color of his vomitus was yellow, and denies coughing up blood. On admission, he reported diffuse abdominal pain, mostly to the upper quadrants, constant and sharp in quality. He notes anorexia and decreased PO intake. The patient also reports upper extremity tremors on admission that have since resolved. During hospital stay, labs revealed elevated triglycerides at 1400, elevated cholesterol levels with elevated liver enzymes. He was transferred to the ICU for an insulin drip. An abdominal MRI with questionable focus in the head of the pancreas and possible acute pancreatic fluid. Vital Signs Period Temp Pulse Resp BP Sys/Garcia Pulse Ox Last 24 Hr 97.5 F-98.8 F 79-98 17-22 92-141/54-88 98-98 GENERAL: The patient is awake, alert, and fully oriented, in no acute distress. HEAD: Normal with no signs of trauma. EYES: PERRL, extraocular movements intact, sclera anicteric, conjunctiva clear. No ptosis. ENT: Ears normal, nares patent, oropharynx clear without exudates, moist mucous membranes. NECK: Trachea midline, full range of motion, supple. LUNGS: Breath sounds equal, clear to auscultation bilaterally HEART: Regular rate and rhythm ABDOMEN: + bowel sounds, soft, non distended, had bm today. EXTREMITIES: 2+ pulses, warm, well-perfused, no edema. NEUROLOGICAL: Normal speech, gait not observed. PSYCH: Normal mood, normal affect. SKIN: Warm, dry, normal turgor, no rashes or lesions noted Laboratory Results - last 24 hr 03/26/19 03/26/19 03/27/19 17:05 20:40 05:23 WBC RBC Hgb Hct MCV MCH MCHC RDW Plt Count MPV Absolute Neuts (auto) Neutrophils % Neutrophils % (Manual) Band Neutrophils % Lymphocytes % Lymphocytes % (Manual) Monocytes % Monocytes % (Manual) Eosinophils % Eosinophils % (Manual) Basophils % Basophils % (Manual) Myelocytes % (Man) Promyelocytes % (Man) Blast Cells % (Manual) Nucleated RBC % Metamyelocytes Hypochromia Platelet Estimate Polychromasia Poikilocytosis Anisocytosis Microcytosis Macrocytosis Spherocytes Stomatocytes Sodium Potassium Chloride Carbon Dioxide Anion Gap BUN Creatinine Est GFR (CKD-EPI)AfAm Est GFR (CKD-EPI)NonAf POC Glucometer 181 224 173 Random Glucose Calcium Magnesium Total Bilirubin AST ALT Alkaline Phosphatase Total Protein Albumin 03/27/19 03/27/19 03/27/19 05:40 05:40 11:25 WBC 9.0 RBC 3.15 L Hgb 10.3 L Hct 30.8 L MCV 97.6 H MCH 32.5 MCHC 33.3 RDW 14.3 Plt Count 403 D MPV 8.1 Absolute Neuts (auto) 4.9 Neutrophils % 55.0 Neutrophils % (Manual) 46.9 Band Neutrophils % 0.0 Lymphocytes % 27.9 Lymphocytes % (Manual) 25.5 Monocytes % 15.2 H Monocytes % (Manual) 13 H Eosinophils % 1.0 Eosinophils % (Manual) 1.0 Basophils % 0.9 Basophils % (Manual) 1.0 Myelocytes % (Man) 10 H D Promyelocytes % (Man) 0 Blast Cells % (Manual) 0 Nucleated RBC % 0 Metamyelocytes 2 D Hypochromia 0 Platelet Estimate Normal Polychromasia 1+ Poikilocytosis 0 Anisocytosis 1+ Microcytosis 0 Macrocytosis 0 Spherocytes 1+ Stomatocytes 1+ Sodium 135 L Potassium 4.3 Chloride 100 Carbon Dioxide 28 Anion Gap 7 L BUN 6.3 L Creatinine 0.7 Est GFR (CKD-EPI)AfAm 130.25 Est GFR (CKD-EPI)NonAf 112.38 POC Glucometer 205 Random Glucose 162 H Calcium 8.9 Magnesium 2.0 Total Bilirubin 0.9 AST 109 H ALT 176 H Alkaline Phosphatase 224 H Total Protein 5.7 L Albumin 2.6 L 03/27/19 16:40 WBC RBC Hgb Hct MCV MCH MCHC RDW Plt Count MPV Absolute Neuts (auto) Neutrophils % Neutrophils % (Manual) Band Neutrophils % Lymphocytes % Lymphocytes % (Manual) Monocytes % Monocytes % (Manual) Eosinophils % Eosinophils % (Manual) Basophils % Basophils % (Manual) Myelocytes % (Man) Promyelocytes % (Man) Blast Cells % (Manual) Nucleated RBC % Metamyelocytes Hypochromia Platelet Estimate Polychromasia Poikilocytosis Anisocytosis Microcytosis Macrocytosis Spherocytes Stomatocytes Sodium Potassium Chloride Carbon Dioxide Anion Gap BUN Creatinine Est GFR (CKD-EPI)AfAm Est GFR (CKD-EPI)NonAf POC Glucometer 240 Random Glucose Calcium Magnesium Total Bilirubin AST ALT Alkaline Phosphatase Total Protein Albumin Active Medications Generic Name Dose Route Start Last Admin Trade Name Freq PRN Reason Stop Dose Admin Chlorhexidine Gluconate 1 applic 03/23/19 22:00 03/26/19 21:03 Hibiclens For Decolonization - TP 1 applic HS [facility] Administration Dextrose 25 gm 03/23/19 18:05 D50w (Vial) - IVPUSH Q6H PRN HYPOGLYCEMIA Fenofibric Acid 45 mg 03/25/19 10:00 03/27/19 10:49 Trilipix - PO 45 mg DAILY [facility] Administration Heparin Sodium (Porcine) 5,000 unit 03/23/19 22:00 03/27/19 10:47 Heparin - SQ 5,000 unit BID [facility] Administration Imipenem/Cilastatin Sodium 500 100 mls @ 100 mls/hr 03/23/19 02:00 03/27/19 10:48 mg/ Sodium Chloride IVPB 100 mls/hr Q8H-IV [facility] Administration Protocol Lorazepam 1 mg 03/22/19 16:08 Ativan Injection - IVPUSH Q6H PRN WITHDRAWAL(CONT SUBST) Mupirocin 1 applic 03/23/19 22:00 03/27/19 10:50 Bactroban Ointment (For Decolonization) - NS 03/28/19 21:59 1 applic BID [facility] Administration ASSESSMENT/PLAN: Problem List - Problems (1) Hypertriglyceridemia Assessment/Plan: S/p insulin drip for triglyceridemia @ 1400 with elevated cholesterol levels with close icu monitoring. insulin drip discontinued and triglycerides are now more stable. now On fenofibric. elevated ast/alt being monitored with daily labs and continues to trend down. patient with acute pancreatitis with small area of necrosis per recent imaging. mri shows acute pancreatities with peripancretic fluid. per GI, will need repeat imaging as an outpt. per ID, continue antibiotics of imipenem. Endocrinology following, notes appreciated Code(s): E78.1 - PURE HYPERGLYCERIDEMIA (2) Acute pancreatitis Assessment/Plan: per GI, can advance diet. recommended a repeat CT in 4 weeks to r/o pancreatic neoplasm. Code(s): K85.90 - ACUTE PANCREATITIS WITHOUT NECROSIS OR INFECTION, UNSP Qualifiers: Pancreatitis type: alcohol induced Acute pancreatitis complication: unspecified Qualified Code(s): K85.20 - Alcohol induced acute pancreatitis without necrosis or infection (3) Necrosis of pancreas Code(s): K86.89 - OTHER SPECIFIED DISEASES OF PANCREAS (4) Thrombocytopenia Assessment/Plan: resolved Code(s): D69.6 - THROMBOCYTOPENIA, UNSPECIFIED (5) Elevated lipase Assessment/Plan: patient with elevated lipase of 1207 on admission, now 900s. He was found to have acute pancreatitis on imaging with small areas of necrosis. Code(s): R74.8 - ABNORMAL LEVELS OF OTHER SERUM ENZYMES (6) Proteinuria Assessment/Plan: +3 urine protein on UA. repeat UA and monitor renal function Code(s): R80.9 - PROTEINURIA, UNSPECIFIED (7) Alcohol withdrawal Assessment/Plan: w/o withdrawal symptoms. Code(s): F10.239 - ALCOHOL DEPENDENCE WITH WITHDRAWAL, UNSPECIFIED Qualifiers: Complication of substance-induced condition: with unspecified complication Qualified Code(s): F10.239 - Alcohol dependence with withdrawal, unspecified (8) Hypocalcemia Assessment/Plan: monitor daily. corrected calcium 8.3. Code(s): E83.51 - HYPOCALCEMIA (9) Hypokalemia Assessment/Plan: resolved. Code(s): E87.6 - HYPOKALEMIA (10) Hyponatremia Assessment/Plan: repeat cmp daily and monitor Code(s): E87.1 - HYPO-OSMOLALITY AND HYPONATREMIA (11) Mass of soft tissue of upper arm Assessment/Plan: left arm mass for a few years that has been increasing in size and causing pain and discomfort. Lipoma? Surgery following Code(s): R22.30 - LOCALIZED SWELLING, MASS AND LUMP, UNSPECIFIED UPPER LIMB (12) Prophylactic measure Assessment/Plan: fen heparin bid full code protonix Code(s): Z29.9 - ENCOUNTER FOR PROPHYLACTIC MEASURES, UNSPECIFIED Visit type - Emergency Visit Emergency Visit: Yes ED Registration Date: 03/22/19 Care time: The patient presented to the Emergency Department on the above date and was hospitalized for further evaluation of their emergent condition. - New Patient This patient is new to me today: No - Critical Care Critical Care patient: Yes Total Critical Care Time (in minutes): 40 Critical Care Statement: The care of this patient involved high complexity decision making to prevent further life threatening deterioration of the patient 's condition and/or to evaluate & treat vital organ system(s) failure or risk of failure.
[2019-03-27] MEDS ORDERED: LORazepam 2 MG/ML SDV VIAL IVPUSH PRN (19:07)
[2019-03-27] MEDS ORDERED: DEXTROSE 50%-WATER - 25 GM/50 ML VIAL IVPUSH PRN (19:07)
[2019-03-27] MEDS ORDERED: CHLORHEXIDINE GLUCONATE 4% CLEANSER FOR DECOLONIZATION TP SCH (22:00)
[2019-03-27] MEDS ORDERED: MUPIROCIN 2% TOPICAL OINTMENT FOR DECOLONIZATION NS SCH (22:00)
[2019-03-28] MEDS: IMIPENEM/CILASTATIN SODIUM 500 MG in SODIUM CHLORIDE 100 ML IVPB SCH ×3 (02:24→17:03)
[2019-03-28 07:03] LABS: BASO % 0.8 % (0-2.0); EOS % 0.6 % (0-4.5); HEMOGLOBIN 10.4 GM/dL (11.7-16.9); LYMPH % 24.3 % (8-40); MCH 32.9 pg (25.7-33.7); MCHC 33.6 g/dl (32.0-35.9); MEAN CELL VOLUME 97.9 fl (80-96); MONO % 15.2 % (3.8-10.2); NEUT % 59.1 % (42.8-82.8); PLATELET COUNT 476 K/MM3 (134-434); RBC 3.16 M/mm3 (4.00-5.60); RDW 14.7 % (11.9-15.9); WHITE BLOOD COUNT 10.1 K/mm3 (4.0-10.0)
[2019-03-28 07:26] LABS: ALBUMIN 2.6 g/dl (3.4-5.0); BILIRUBIN,TOTAL 0.8 mg/dL (0.2-1); BLOOD UREA NITROGEN 11.9 mg/dL (7-18); CALCIUM 8.9 mg/dL (8.5-10.1); CREATININE 0.8 mg/dL (0.55-1.3); MAGNESIUM 2.1 mg/dL (1.8-2.4); PHOSPHOROUS 3.6 mg/dL (2.5-4.9); POTASSIUM 4.9 mmol/L (3.5-5.1); TOT PROT 5.8 g/dl (6.4-8.2)
--- NOTE | 2019-03-28 08:11 | PN ---
Progress Note, Physician Chief Complaint: no complaints offered,requested to take shower History of Present Illness: Patient is a 48 year old male with a significant past medical history of ETOH abuse. He reports that he had a withdrawal seizure 2 years ago and non since. He tells me his last drink was last week and cut out drinking on his own because he started to feel worse in the last few weeks. He has been weaker in the last two days and was not able to get up and go to work. He began vomiting all day yesterday, and all day today and was unable to keep anything down. He says the color of his vomitus was yellow, and denies coughing up blood. He reports diffuse abdominal pain, mostly to the upper quadrants, constant and sharp in quality. He notes anorexia and decreased PO intake. The patient also reports upper extremity tremors. During hospital stay, labs revealed elevated triglycerides at 1400, elevated cholesterol levels with elevated liver enzymes. He was transferred to the ICU for an insulin drip. An abdominal MRI with questionable focus in the head of the pancreas and possible acute pancreatic fluid. - Current Medication List Current Medications: Active Medications Dextrose (D50w (Vial) -) 25 gm IVPUSH Q6H PRN PRN Reason: HYPOGLYCEMIA Fenofibric Acid (Trilipix -) 45 mg PO DAILY [facility] Heparin Sodium (Porcine) (Heparin -) 5,000 unit SQ BID [facility] Last Admin: 03/27/19 21:39 Dose: 5,000 unit Imipenem/Cilastatin Sodium 500 (mg/ Sodium Chloride) 100 mls @ 200 mls/hr IVPB Q8H-IV [facility]; Protocol Last Admin: 03/28/19 02:24 Dose: 200 mls/hr Lorazepam (Ativan Injection -) 1 mg IVPUSH Q6H PRN PRN Reason: WITHDRAWAL(CONT SUBST) - Objective Vital Signs: Vital Signs Temperature 98.8 F 03/28/19 06:00 Pulse Rate 84 03/28/19 06:00 Respiratory Rate 18 03/28/19 06:00 Blood Pressure 111/64 03/28/19 06:00 O2 Sat by Pulse Oximetry (%) 98 03/27/19 21:00 Constitutional: Yes: Well Nourished, No Distress, Calm Eyes: Yes: WNL, Conjunctiva Clear HENT: Yes: WNL, Atraumatic, Normocephalic Neck: Yes: WNL, Supple, Trachea Midline Cardiovascular: Yes: WNL, Regular Rate and Rhythm Respiratory: Yes: WNL, Regular, CTA Bilaterally Gastrointestinal: Yes: WNL, Normal Bowel Sounds ...Rectal Exam: Yes: Deferred Genitourinary: Yes: WNL Breast(s): Yes: WNL Musculoskeletal: Yes: WNL Extremities: Yes: WNL Edema: No Peripheral Pulses WNL: Yes Peripheral Pulses: Left Radial: 2+, Right Radial: 2+, Left Doralis Pedis: 2+, Right Dorsalis Pedis: 2+, Left Femoral: 2+, Right Femoral: 2+ Integumentary: Yes: WNL Neurological: Yes: WNL, Alert, Oriented ...Motor Strength: WNL Psychiatric: Yes: WNL Labs: CBC, BMP 03/28/19 05:30 03/28/19 05:30 INR, PTT INR 0.93 (0.83-1.09) 03/23/19 11:50 - ....Imaging MRI: Report Reviewed (MRI shows diffuse acute pancreatitis, acute peripancreatic fluid collection, 1.5 cm focus of parenchymal necrosis involving the pancreatic head with peripancreatic necrosis) Problem List - Problems (1) Abnormal liver function tests Assessment/Plan: appreciate GI consultation Suspect component of chronic liver disease with superimposed alcohic cirrhosis. No stones or dilated biliary tract noted on US. MRI shows diffuse acute pancreatitis, acute peripancreatic fluid collection, 1.5 cm focus of parenchymal necrosis involving the pancreatic head with peripancreatic necrosis Hepatitis A/B panel pending HCV not detected Monitor LFTs Avoid hepatotoxic agents Code(s): R94.5 - ABNORMAL RESULTS OF LIVER FUNCTION STUDIES (2) Acute pancreatitis Assessment/Plan: Appreciate Surgery consultation tolerating diet trend lipase Code(s): K85.90 - ACUTE PANCREATITIS WITHOUT NECROSIS OR INFECTION, UNSP Qualifiers: Pancreatitis type: alcohol induced Acute pancreatitis complication: unspecified Qualified Code(s): K85.20 - Alcohol induced acute pancreatitis without necrosis or infection (3) Elevated lipase Assessment/Plan: lipase 884 continue to trend Code(s): R74.8 - ABNORMAL LEVELS OF OTHER SERUM ENZYMES (4) Hypocalcemia Assessment/Plan: resolving continue to trend Code(s): E83.51 - HYPOCALCEMIA (5) Hypokalemia Assessment/Plan: resolving cont to trend Code(s): E87.6 - HYPOKALEMIA (6) Hyponatremia Assessment/Plan: resolving cont to trend Code(s): E87.1 - HYPO-OSMOLALITY AND HYPONATREMIA (7) Necrosis of pancreas Assessment/Plan: repeat ct in 4 weeks to r/o pancreatic neoplasm to follow up as outpt with GI to repeat abdominal imaging as an outpt to monitor for pseduocyst formation c/w abx as per ID Code(s): K86.89 - OTHER SPECIFIED DISEASES OF PANCREAS (8) Prophylactic measure Assessment/Plan: FEN c/w low fat/cholesterol diet monitor electrolytes and replete PRN DVT heparin sq Dispo maintain as in patient full code discharge planning Code(s): Z29.9 - ENCOUNTER FOR PROPHYLACTIC MEASURES, UNSPECIFIED (9) Proteinuria Assessment/Plan: +3 urine protein on UA on admission, repeated 1+ continue to monitor renal function Code(s): R80.9 - PROTEINURIA, UNSPECIFIED (10) Thrombocytopenia Assessment/Plan: resolved plt now 476 Code(s): D69.6 - THROMBOCYTOPENIA, UNSPECIFIED (11) Hypertriglyceridemia Assessment/Plan: Appreciate construction producer consultation c/w Fenofibrate possible initiation Vascepa-might be a better option in view of increased LFTs Code(s): E78.1 - PURE HYPERGLYCERIDEMIA Visit type - Emergency Visit Emergency Visit: Yes ED Registration Date: 03/22/19 Care time: The patient presented to the Emergency Department on the above date and was hospitalized for further evaluation of their emergent condition. - New Patient This patient is new to me today: Yes Date on this admission: 03/28/19 - Critical Care Critical Care patient: No - Discharge Referral Referred to [facility] Med P.C.: No
[2019-03-28] MEDS ORDERED: PT OWN MED DRAWER 7, Y5N ONE ×2 (08:59→16:38)
[2019-03-28] MEDS: FENOFIBRIC ACID 45 MG CAP PO SCH (09:12)
[2019-03-28] MEDS: HEPARIN NA (PORCINE) 5,000 UNITS/ML 1ML VIAL SQ SCH ×2 (09:12→21:31)
[2019-03-28 10:02] LABS: ANISOCYTOSIS 1+; MACROCYTOSIS 0; PLATELET ESTIMATE INCREASED
[2019-03-28] MEDS ORDERED: INSULIN (NOVOLOG) ASPART 100 UNITS/ML 10ML VIAL ONE ×2 (11:31→21:30)
[2019-03-28] MEDS: INSULIN SLIDING SCALE (NOVOLOG) 1 VIAL SQ SCH ×3 (12:05→22:31)
--- NOTE | 2019-03-28 12:31 | PN ---
Progress Note, Physician History of Present Illness: stable no new issues - Current Medication List Current Medications: Active Medications Dextrose (D50w (Vial) -) 25 gm IVPUSH Q6H PRN PRN Reason: HYPOGLYCEMIA Fenofibric Acid (Trilipix -) 45 mg PO DAILY [facility] Last Admin: 03/28/19 09:12 Dose: 45 mg Heparin Sodium (Porcine) (Heparin -) 5,000 unit SQ BID [facility] Last Admin: 03/28/19 09:12 Dose: 5,000 unit Imipenem/Cilastatin Sodium 500 (mg/ Sodium Chloride) 100 mls @ 200 mls/hr IVPB Q8H-IV [facility]; Protocol Last Admin: 03/28/19 10:13 Dose: 200 mls/hr Insulin Aspart (Novolog Vial Sliding Scale -) 1 vial SQ ACHS [facility]; Protocol Last Admin: 03/28/19 12:05 Dose: 10 units Lorazepam (Ativan Injection -) 1 mg IVPUSH Q6H PRN PRN Reason: WITHDRAWAL(CONT SUBST) - Objective Vital Signs: Vital Signs Temperature 99.0 F 03/28/19 09:10 Pulse Rate 86 03/28/19 09:10 Respiratory Rate 18 03/28/19 09:10 Blood Pressure 113/63 03/28/19 09:10 O2 Sat by Pulse Oximetry (%) 95 03/28/19 09:50 Constitutional: Yes: No Distress, Calm Cardiovascular: Yes: S1, S2 Respiratory: Yes: Regular, CTA Bilaterally Gastrointestinal: Yes: Normal Bowel Sounds, Soft Musculoskeletal: Yes: WNL Extremities: Yes: WNL Neurological: Yes: Alert, Oriented Psychiatric: Yes: Alert, Oriented Labs: CBC, BMP 03/28/19 05:30 03/28/19 05:30 INR, PTT INR 0.93 (0.83-1.09) 03/23/19 11:50 Assessment/Plan Problem List - Problems (1) Hypertriglyceridemia Code(s): E78.1 - PURE HYPERGLYCERIDEMIA (2) Acute pancreatitis Code(s): K85.90 - ACUTE PANCREATITIS WITHOUT NECROSIS OR INFECTION, UNSP Qualifiers: Pancreatitis type: alcohol induced Acute pancreatitis complication: unspecified Qualified Code(s): K85.20 - Alcohol induced acute pancreatitis without necrosis or infection (3) Necrosis of pancreas Code(s): K86.89 - OTHER SPECIFIED DISEASES OF PANCREAS (4) Thrombocytopenia Code(s): D69.6 - THROMBOCYTOPENIA, UNSPECIFIED (5) Elevated lipase Code(s): R74.8 - ABNORMAL LEVELS OF OTHER SERUM ENZYMES (6) Proteinuria Code(s): R80.9 - PROTEINURIA, UNSPECIFIED (7) Alcohol withdrawal Code(s): F10.239 - ALCOHOL DEPENDENCE WITH WITHDRAWAL, UNSPECIFIED Qualifiers: Complication of substance-induced condition: with unspecified complication Qualified Code(s): F10.239 - Alcohol dependence with withdrawal, unspecified (8) Hypocalcemia Code(s): E83.51 - HYPOCALCEMIA (9) Hypokalemia Code(s): E87.6 - HYPOKALEMIA (10) Hyponatremia Code(s): E87.1 - HYPO-OSMOLALITY AND HYPONATREMIA (11) Mass of soft tissue of upper arm Code(s): R22.30 - LOCALIZED SWELLING, MASS AND LUMP, UNSPECIFIED UPPER LIMB plan continue abx surgery on case close monitoring hydration as per gi
--- NOTE | 2019-03-28 12:38 | PN ---
Progress Note, Physician History of Present Illness: stable no new issues - Current Medication List Current Medications: Active Medications Dextrose (D50w (Vial) -) 25 gm IVPUSH Q6H PRN PRN Reason: HYPOGLYCEMIA Fenofibric Acid (Trilipix -) 45 mg PO DAILY [facility] Last Admin: 03/28/19 09:12 Dose: 45 mg Heparin Sodium (Porcine) (Heparin -) 5,000 unit SQ BID [facility] Last Admin: 03/28/19 09:12 Dose: 5,000 unit Imipenem/Cilastatin Sodium 500 (mg/ Sodium Chloride) 100 mls @ 200 mls/hr IVPB Q8H-IV [facility]; Protocol Last Admin: 03/28/19 10:13 Dose: 200 mls/hr Insulin Aspart (Novolog Vial Sliding Scale -) 1 vial SQ ACHS [facility]; Protocol Last Admin: 03/28/19 12:05 Dose: 10 units Lorazepam (Ativan Injection -) 1 mg IVPUSH Q6H PRN PRN Reason: WITHDRAWAL(CONT SUBST) - Objective Vital Signs: Vital Signs Temperature 99.0 F 03/28/19 09:10 Pulse Rate 86 03/28/19 09:10 Respiratory Rate 18 03/28/19 09:10 Blood Pressure 113/63 03/28/19 09:10 O2 Sat by Pulse Oximetry (%) 95 03/28/19 09:50 Constitutional: Yes: No Distress, Calm Cardiovascular: Yes: Regular Rate and Rhythm, S1 Respiratory: Yes: Regular, CTA Bilaterally Gastrointestinal: Yes: Normal Bowel Sounds, Soft Musculoskeletal: Yes: WNL Extremities: Yes: WNL Neurological: Yes: Alert, Oriented Psychiatric: Yes: Alert, Oriented Labs: CBC, BMP 03/28/19 05:30 03/28/19 05:30 INR, PTT INR 0.93 (0.83-1.09) 03/23/19 11:50 Assessment/Plan Problem List - Problems (1) Hypertriglyceridemia Code(s): E78.1 - PURE HYPERGLYCERIDEMIA (2) Acute pancreatitis Code(s): K85.90 - ACUTE PANCREATITIS WITHOUT NECROSIS OR INFECTION, UNSP Qualifiers: Pancreatitis type: alcohol induced Acute pancreatitis complication: unspecified Qualified Code(s): K85.20 - Alcohol induced acute pancreatitis without necrosis or infection (3) Necrosis of pancreas Code(s): K86.89 - OTHER SPECIFIED DISEASES OF PANCREAS (4) Thrombocytopenia Code(s): D69.6 - THROMBOCYTOPENIA, UNSPECIFIED (5) Elevated lipase Code(s): R74.8 - ABNORMAL LEVELS OF OTHER SERUM ENZYMES (6) Proteinuria Code(s): R80.9 - PROTEINURIA, UNSPECIFIED (7) Alcohol withdrawal Code(s): F10.239 - ALCOHOL DEPENDENCE WITH WITHDRAWAL, UNSPECIFIED Qualifiers: Complication of substance-induced condition: with unspecified complication Qualified Code(s): F10.239 - Alcohol dependence with withdrawal, unspecified (8) Hypocalcemia Code(s): E83.51 - HYPOCALCEMIA (9) Hypokalemia Code(s): E87.6 - HYPOKALEMIA (10) Hyponatremia Code(s): E87.1 - HYPO-OSMOLALITY AND HYPONATREMIA (11) Mass of soft tissue of upper arm Code(s): R22.30 - LOCALIZED SWELLING, MASS AND LUMP, UNSPECIFIED UPPER LIMB plan continue abx surgery on case close monitoring hydration as per gi
[2019-03-28 12:57] VITALS: BMI 24.5
--- NOTE | 2019-03-28 14:42 | PN.GI ---
GI Progress Note Subjective: No acute events No abdominal pain an tolerating PO - Objective Vital Signs: Vital Signs Temperature 99.0 F 03/28/19 09:10 Pulse Rate 86 03/28/19 09:10 Respiratory Rate 18 03/28/19 09:10 Blood Pressure 113/63 03/28/19 09:10 O2 Sat by Pulse Oximetry (%) 95 03/28/19 09:50 Constitutional: Calm Eyes: No: Sclera Icterus Cardiovascular: Yes: Regular Rate and Rhythm Respiratory: Yes: CTA Bilaterally ...Palpate: Yes: Soft. No: Hepatomegaly, Tenderness ...Percussion: No: Tympanitic Edema: No (No LE edema) Neurological: Yes: Alert Labs: CBC, BMP 03/28/19 05:30 03/28/19 05:30 INR, PTT INR 0.93 (0.83-1.09) 03/23/19 11:50 Problem List - Problems (1) Acute pancreatitis Assessment/Plan: Acute necrotizing pancreatitis with early necrotic fluid collection per MRI Clinically looks well and is tolerating PO. No abdominal pain No acting as if he has infected pancreatic necrosis. Would D/C Abx Advised patient the need for complete alcohol abstinence. Explained that continued alcohol use can lead to recurrent episodes of pancreatitis / worsening necrosis and . Gave him my office card. Will need follow-up imaging to see if persistent fluid collection develops Code(s): K85.90 - ACUTE PANCREATITIS WITHOUT NECROSIS OR INFECTION, UNSP Qualifiers: Pancreatitis type: alcohol induced Acute pancreatitis complication: unspecified Qualified Code(s): K85.20 - Alcohol induced acute pancreatitis without necrosis or infection (2) Abnormal liver function tests Assessment/Plan: Improving. Continued to monitor. Advised complete alcohol cessation Code(s): R94.5 - ABNORMAL RESULTS OF LIVER FUNCTION STUDIES
[2019-03-29] MEDS ORDERED: PT OWN MED DRAWER 7, Y5N ONE ×3 (01:04→17:35)
[2019-03-29] MEDS: IMIPENEM/CILASTATIN SODIUM 500 MG in SODIUM CHLORIDE 100 ML IVPB SCH ×3 (01:46→17:49)
[2019-03-29] MEDS: INSULIN SLIDING SCALE (NOVOLOG) 1 VIAL SQ SCH ×4 (06:52→22:42)
[2019-03-29] MEDS ORDERED: INSULIN (NOVOLOG) ASPART 100 UNITS/ML 10ML VIAL ONE ×2 (07:19→11:20)
[2019-03-29 07:45] LABS: BASO % 1.2 % (0-2.0); EOS % 0.8 % (0-4.5); HEMATOCRIT 30.3 % (35.4-49); HEMOGLOBIN 10.2 GM/dL (11.7-16.9); MCH 32.8 pg (25.7-33.7); MCHC 33.7 g/dl (32.0-35.9); MEAN CELL VOLUME 97.2 fl (80-96); MEAN PLT VOLUME 8.1 fl (7.5-11.1); MONO % 11.1 % (3.8-10.2); NEUT % 61.9 % (42.8-82.8); PLATELET COUNT 604 K/MM3 (134-434); RBC 3.12 M/mm3 (4.00-5.60); WHITE BLOOD COUNT 10.5 K/mm3 (4.0-10.0)
[2019-03-29 07:58] LABS: ALBUMIN 2.7 g/dl (3.4-5.0); BILIRUBIN,TOTAL 0.6 mg/dL (0.2-1); BLOOD UREA NITROGEN 13.4 mg/dL (7-18); CALCIUM 9.1 mg/dL (8.5-10.1); CREATININE 0.8 mg/dL (0.55-1.3); MAGNESIUM 2.1 mg/dL (1.8-2.4); POTASSIUM 4.6 mmol/L (3.5-5.1); TOT PROT 5.8 g/dl (6.4-8.2)
--- NOTE | 2019-03-29 07:58 | PN ---
Progress Note, Physician Chief Complaint: no complaints offered, feeling better History of Present Illness: Patient is a 48 year old male with a significant past medical history of ETOH abuse. He reports that he had a withdrawal seizure 2 years ago and non since. He tells me his last drink was last week and cut out drinking on his own because he started to feel worse in the last few weeks. He has been weaker in the last two days and was not able to get up and go to work. He began vomiting all day yesterday, and all day today and was unable to keep anything down. He says the color of his vomitus was yellow, and denies coughing up blood. He reports diffuse abdominal pain, mostly to the upper quadrants, constant and sharp in quality. He notes anorexia and decreased PO intake. The patient also reports upper extremity tremors. During hospital stay, labs revealed elevated triglycerides at 1400, elevated cholesterol levels with elevated liver enzymes. He was transferred to the ICU for an insulin drip. An abdominal MRI with questionable focus in the head of the pancreas and possible acute pancreatic fluid. - Current Medication List Current Medications: Active Medications Dextrose (D50w (Vial) -) 25 gm IVPUSH Q6H PRN PRN Reason: HYPOGLYCEMIA Fenofibric Acid (Trilipix -) 45 mg PO DAILY [facility] Last Admin: 03/28/19 09:12 Dose: 45 mg Heparin Sodium (Porcine) (Heparin -) 5,000 unit SQ BID [facility] Last Admin: 03/28/19 21:31 Dose: 5,000 unit Imipenem/Cilastatin Sodium 500 (mg/ Sodium Chloride) 100 mls @ 200 mls/hr IVPB Q8H-IV [facility]; Protocol Last Admin: 03/29/19 01:46 Dose: 200 mls/hr Insulin Aspart (Novolog Vial Sliding Scale -) 1 vial SQ ACHS [facility]; Protocol Last Admin: 03/29/19 06:52 Dose: 8 units Lorazepam (Ativan Injection -) 1 mg IVPUSH Q6H PRN PRN Reason: WITHDRAWAL(CONT SUBST) - Objective Vital Signs: Vital Signs Temperature 98.6 F 03/29/19 05:39 Pulse Rate 89 03/29/19 05:39 Respiratory Rate 18 03/29/19 05:39 Blood Pressure 100/58 L 03/29/19 05:39 O2 Sat by Pulse Oximetry (%) 95 03/28/19 21:00 Constitutional: Yes: Well Nourished, No Distress, Calm Eyes: Yes: WNL, Conjunctiva Clear HENT: Yes: WNL, Atraumatic, Normocephalic Neck: Yes: WNL, Supple, Trachea Midline Cardiovascular: Yes: WNL, Regular Rate and Rhythm Respiratory: Yes: WNL, Regular, CTA Bilaterally Gastrointestinal: Yes: WNL, Normal Bowel Sounds, Soft ...Rectal Exam: Yes: Deferred Genitourinary: Yes: WNL Breast(s): Yes: WNL Musculoskeletal: Yes: WNL Extremities: Yes: WNL Edema: No Peripheral Pulses WNL: Yes Peripheral Pulses: Left Radial: 2+, Right Radial: 2+, Left Doralis Pedis: 2+, Right Dorsalis Pedis: 2+, Left Femoral: 2+, Right Femoral: 2+ Integumentary: Yes: WNL Neurological: Yes: WNL, Alert, Oriented ...Motor Strength: WNL Psychiatric: Yes: WNL Labs: INR, PTT INR 0.93 (0.83-1.09) 03/23/19 11:50 Problem List - Problems (1) Abnormal liver function tests Assessment/Plan: appreciate GI consultation Suspect component of chronic liver disease with superimposed alcohic cirrhosis. No stones or dilated biliary tract noted on US. MRI shows diffuse acute pancreatitis, acute peripancreatic fluid collection, 1.5 cm focus of parenchymal necrosis involving the pancreatic head with peripancreatic necrosis Hepatitis A Ab positive/HBV panel pending HCV not detected Monitor LFTs Avoid hepatotoxic agents Code(s): R94.5 - ABNORMAL RESULTS OF LIVER FUNCTION STUDIES (2) Acute pancreatitis Assessment/Plan: Appreciate Surgery consultation tolerating diet trend lipase, 884 Code(s): K85.90 - ACUTE PANCREATITIS WITHOUT NECROSIS OR INFECTION, UNSP Qualifiers: Pancreatitis type: alcohol induced Acute pancreatitis complication: unspecified Qualified Code(s): K85.20 - Alcohol induced acute pancreatitis without necrosis or infection (3) Elevated lipase Assessment/Plan: lipase 884 continue to trend Code(s): R74.8 - ABNORMAL LEVELS OF OTHER SERUM ENZYMES (4) Hypocalcemia Assessment/Plan: resolving continue to trend Problems reviewed: Yes Code(s): E83.51 - HYPOCALCEMIA (5) Hypokalemia Assessment/Plan: resolving cont to trend Problems reviewed: Yes Code(s): E87.6 - HYPOKALEMIA (6) Hyponatremia Assessment/Plan: resolving cont to trend Code(s): E87.1 - HYPO-OSMOLALITY AND HYPONATREMIA (7) Necrosis of pancreas Assessment/Plan: repeat ct in 4 weeks to r/o pancreatic neoplasm to follow up as outpt with GI to repeat abdominal imaging as an outpt to monitor for pseduocyst formation. WBC elevated, if continues to rise repeat imaging c/w abx as per ID Code(s): K86.89 - OTHER SPECIFIED DISEASES OF PANCREAS (8) Prophylactic measure Assessment/Plan: FEN c/w low fat/cholesterol diet monitor electrolytes and replete PRN DVT heparin sq Dispo maintain as in patient full code discharge planning Code(s): Z29.9 - ENCOUNTER FOR PROPHYLACTIC MEASURES, UNSPECIFIED (9) Proteinuria Assessment/Plan: +3 urine protein on UA on admission, repeated 1+ continue to monitor renal function Code(s): R80.9 - PROTEINURIA, UNSPECIFIED (10) Thrombocytopenia Assessment/Plan: resolved plt now 604 Problems reviewed: Yes Code(s): D69.6 - THROMBOCYTOPENIA, UNSPECIFIED (11) Hypertriglyceridemia Assessment/Plan: Appreciate support architect consultation c/w Fenofibrate possible initiation Vascepa-might be a better option in view of increased LFTs Problems reviewed: No Code(s): E78.1 - PURE HYPERGLYCERIDEMIA (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 - New Patient This patient is new to me today: No - Critical Care Critical Care patient: No - Discharge Referral Referred to [facility] Med P.C.: No
[2019-03-29] MEDS: HEPARIN NA (PORCINE) 5,000 UNITS/ML 1ML VIAL SQ SCH ×2 (09:03→22:42)
[2019-03-29] MEDS: FENOFIBRIC ACID 45 MG CAP PO SCH (09:04)
--- NOTE | 2019-03-29 10:34 | PN.GI ---
GI Progress Note Subjective: Pt seen/examined at bedside - Objective Vital Signs: Vital Signs Temperature 99.3 F 03/29/19 09:35 Pulse Rate 88 03/29/19 09:35 Respiratory Rate 03/29/19 09:35 Blood Pressure 104/55 L 03/29/19 09:35 O2 Sat by Pulse Oximetry (%) 95 03/28/19 21:00 Labs: CBC, BMP 03/29/19 06:30 03/29/19 06:30 INR, PTT INR 0.93 (0.83-1.09) 03/23/19 11:50 Problem List - Problems (1) Acute pancreatitis Assessment/Plan: in setting of etoh and elevated triglycerides s/p MRCP revealing pancreatitis with possible 1.5cm focus of necrosis at pancreatic head and 11mm pancreatic neck cyst. Clinically improved. Tolerating diet. No leucocytosis or fever. Possible dc planning. -Continue conservative measures -Low fat diet as tolerated -As noted previously could monitor off antibiotics as does not appear infected -ID following -Continue to monitor LFTs to ensure normalization -Strict etoh abstinence again advised -Management of hypertriglyceridemia per endo -Pt would require repeat CT (pancreatic protocol) and possible EUS to re- evaluate the pancreas and for persisting collection/resolution in 4-6 weeks -DC planning per primary team. Pt will require outpt GI follow up (contact information provided by Dr. Tong). Code(s): K85.90 - ACUTE PANCREATITIS WITHOUT NECROSIS OR INFECTION, UNSP Qualifiers: Pancreatitis type: alcohol induced Acute pancreatitis complication: unspecified Qualified Code(s): K85.20 - Alcohol induced acute pancreatitis without necrosis or infection
[2019-03-29 11:36] LABS: ANISOCYTOSIS 1+; MACROCYTOSIS 1+; PLATELET ESTIMATE INCREASED
--- NOTE | 2019-03-29 12:34 | PN ---
Progress Note, Physician History of Present Illness: patient stable tolerating diet patients wbc has started increasing which is worrisome - Current Medication List Current Medications: Active Medications Dextrose (D50w (Vial) -) 25 gm IVPUSH Q6H PRN PRN Reason: HYPOGLYCEMIA Fenofibric Acid (Trilipix -) 45 mg PO DAILY [facility] Last Admin: 03/29/19 09:04 Dose: 45 mg Heparin Sodium (Porcine) (Heparin -) 5,000 unit SQ BID [facility] Last Admin: 03/29/19 09:03 Dose: 5,000 unit Imipenem/Cilastatin Sodium 500 (mg/ Sodium Chloride) 100 mls @ 200 mls/hr IVPB Q8H-IV [facility]; Protocol Last Admin: 03/29/19 09:04 Dose: 200 mls/hr Insulin Aspart (Novolog Vial Sliding Scale -) 1 vial SQ ACHS [facility]; Protocol Last Admin: 03/29/19 11:35 Dose: Not Given Lorazepam (Ativan Injection -) 1 mg IVPUSH Q6H PRN PRN Reason: WITHDRAWAL(CONT SUBST) - Objective Vital Signs: Vital Signs Temperature 99.3 F 03/29/19 09:35 Pulse Rate 88 03/29/19 09:35 Respiratory Rate 19 03/29/19 09:35 Blood Pressure 104/55 L 03/29/19 09:35 O2 Sat by Pulse Oximetry (%) 96 03/29/19 09:00 Constitutional: Yes: No Distress, Calm Cardiovascular: Yes: Regular Rate and Rhythm Respiratory: Yes: Regular, CTA Bilaterally Gastrointestinal: Yes: Normal Bowel Sounds, Soft Musculoskeletal: Yes: WNL Extremities: Yes: WNL Neurological: Yes: Alert, Oriented Psychiatric: Yes: Alert, Oriented Labs: CBC, BMP 03/29/19 06:30 03/29/19 06:30 INR, PTT INR 0.93 (0.83-1.09) 03/23/19 11:50 Assessment/Plan Problem List - Problems (1) Hypertriglyceridemia Code(s): E78.1 - PURE HYPERGLYCERIDEMIA (2) Acute pancreatitis Code(s): K85.90 - ACUTE PANCREATITIS WITHOUT NECROSIS OR INFECTION, UNSP Qualifiers: Pancreatitis type: alcohol induced Acute pancreatitis complication: unspecified Qualified Code(s): K85.20 - Alcohol induced acute pancreatitis without necrosis or infection (3) Necrosis of pancreas Code(s): K86.89 - OTHER SPECIFIED DISEASES OF PANCREAS (4) Thrombocytopenia Code(s): D69.6 - THROMBOCYTOPENIA, UNSPECIFIED (5) Elevated lipase Code(s): R74.8 - ABNORMAL LEVELS OF OTHER SERUM ENZYMES (6) Proteinuria Code(s): R80.9 - PROTEINURIA, UNSPECIFIED (7) Alcohol withdrawal Code(s): F10.239 - ALCOHOL DEPENDENCE WITH WITHDRAWAL, UNSPECIFIED Qualifiers: Complication of substance-induced condition: with unspecified complication Qualified Code(s): F10.239 - Alcohol dependence with withdrawal, unspecified (8) Hypocalcemia Code(s): E83.51 - HYPOCALCEMIA (9) Hypokalemia Code(s): E87.6 - HYPOKALEMIA (10) Hyponatremia Code(s): E87.1 - HYPO-OSMOLALITY AND HYPONATREMIA (11) Mass of soft tissue of upper arm Code(s): R22.30 - LOCALIZED SWELLING, MASS AND LUMP, UNSPECIFIED UPPER LIMB plan continue abx if the wbc keeps on increasing then repeat imaging gi on board very close watch
[2019-03-30] MEDS: IMIPENEM/CILASTATIN SODIUM 500 MG in SODIUM CHLORIDE 100 ML IVPB SCH ×4 (02:30→21:34)
[2019-03-30] MEDS ORDERED: PT OWN MED DRAWER 7, Y5N ONE ×2 (02:47→18:40)
[2019-03-30] MEDS: INSULIN SLIDING SCALE (NOVOLOG) 1 VIAL SQ SCH ×4 (06:41→22:34)
--- NOTE | 2019-03-30 07:45 | PN ---
Progress Note, Physician Chief Complaint: no complaints offered, no abdominal pain, wants to go home History of Present Illness: Patient is a 48 year old male with a significant past medical history of ETOH abuse. He reports that he had a withdrawal seizure 2 years ago and non since. He tells me his last drink was last week and cut out drinking on his own because he started to feel worse in the last few weeks. He has been weaker in the last two days and was not able to get up and go to work. He began vomiting all day yesterday, and all day today and was unable to keep anything down. He says the color of his vomitus was yellow, and denies coughing up blood. He reports diffuse abdominal pain, mostly to the upper quadrants, constant and sharp in quality. He notes anorexia and decreased PO intake. The patient also reports upper extremity tremors. During hospital stay, labs revealed elevated triglycerides at 1400, elevated cholesterol levels with elevated liver enzymes. He was transferred to the ICU for an insulin drip. An abdominal MRI with questionable focus in the head of the pancreas and possible acute pancreatic fluid. - Current Medication List Current Medications: Active Medications Dextrose (D50w (Vial) -) 25 gm IVPUSH Q6H PRN PRN Reason: HYPOGLYCEMIA Fenofibric Acid (Trilipix -) 45 mg PO DAILY [facility] Last Admin: 03/29/19 09:04 Dose: 45 mg Heparin Sodium (Porcine) (Heparin -) 5,000 unit SQ BID [facility] Last Admin: 03/29/19 22:42 Dose: 5,000 unit Imipenem/Cilastatin Sodium 500 (mg/ Sodium Chloride) 100 mls @ 200 mls/hr IVPB Q8H-IV [facility]; Protocol Last Admin: 03/30/19 02:30 Dose: 200 mls/hr Insulin Aspart (Novolog Vial Sliding Scale -) 1 vial SQ ACHS [facility]; Protocol Last Admin: 03/30/19 06:41 Dose: Not Given Lorazepam (Ativan Injection -) 1 mg IVPUSH Q6H PRN PRN Reason: WITHDRAWAL(CONT SUBST) - Objective Vital Signs: Vital Signs Temperature 97.9 F 03/30/19 06:00 Pulse Rate 77 03/30/19 06:00 Respiratory Rate 20 03/30/19 06:00 Blood Pressure 102/58 L 03/30/19 06:00 O2 Sat by Pulse Oximetry (%) 95 03/29/19 21:00 Additional Findings/Remarks: Constitutional: Yes: Well Nourished, No Distress, Calm Eyes: Yes: WNL, Conjunctiva Clear HENT: Yes: WNL, Atraumatic, Normocephalic Neck: Yes: WNL, Supple, Trachea Midline Cardiovascular: Yes: WNL, Regular Rate and Rhythm Respiratory: Yes: WNL, Regular, CTA Bilaterally Gastrointestinal: Yes: WNL, Normal Bowel Sounds, Soft ...Rectal Exam: Yes: Deferred Genitourinary: Yes: WNL Breast(s): Yes: WNL Musculoskeletal: Yes: WNL Extremities: Yes: WNL Edema: No Peripheral Pulses WNL: Yes Peripheral Pulses: Left Radial: 2+, Right Radial: 2+, Left Doralis Pedis: 2+, Right Dorsalis Pedis: 2+, Left Femoral: 2+, Right Femoral: 2+ Integumentary: Yes: WNL Neurological: Yes: WNL, Alert, Oriented ...Motor Strength: WNL Psychiatric: Yes: WNL Labs: INR, PTT INR 0.93 (0.83-1.09) 03/23/19 11:50 - ....Imaging Cat Scan: Pending (A/P CT with contrast) Problem List - Problems (1) Abnormal liver function tests Assessment/Plan: appreciate GI consultation Suspect component of chronic liver disease with superimposed alcohic cirrhosis. No stones or dilated biliary tract noted on US. MRI shows diffuse acute pancreatitis, acute peripancreatic fluid collection, 1.5 cm focus of parenchymal necrosis involving the pancreatic head with peripancreatic necrosis Hepatitis A Ab positive/HBV panel pending HCV not detected Monitor LFTs, trending down Avoid hepatotoxic agents Code(s): R94.5 - ABNORMAL RESULTS OF LIVER FUNCTION STUDIES (2) Acute pancreatitis Assessment/Plan: Appreciate Surgery consultation trend lipase, 884 no abdominal pain,however WBC are rising on abx therapy CT A/P with contrast pending made NPO pending results Code(s): K85.90 - ACUTE PANCREATITIS WITHOUT NECROSIS OR INFECTION, UNSP Qualifiers: Pancreatitis type: alcohol induced Acute pancreatitis complication: unspecified Qualified Code(s): K85.20 - Alcohol induced acute pancreatitis without necrosis or infection (3) Elevated lipase Assessment/Plan: lipase 884, level pending for today continue to trend Code(s): R74.8 - ABNORMAL LEVELS OF OTHER SERUM ENZYMES (4) Hypocalcemia Assessment/Plan: resolving continue to trend Code(s): E83.51 - HYPOCALCEMIA (5) Hypokalemia Assessment/Plan: resolving cont to trend Code(s): E87.6 - HYPOKALEMIA (6) Hyponatremia Assessment/Plan: resolving cont to trend Code(s): E87.1 - HYPO-OSMOLALITY AND HYPONATREMIA (7) Necrosis of pancreas Assessment/Plan: WBC rising daily CT A/P requested and pending NPO c/w abx as per ID Code(s): K86.89 - OTHER SPECIFIED DISEASES OF PANCREAS (8) Prophylactic measure Assessment/Plan: FEN NPO, will start IVF if not able to have diet after CT monitor electrolytes and replete PRN DVT heparin sq Dispo maintain as in patient full code discharge planning Code(s): Z29.9 - ENCOUNTER FOR PROPHYLACTIC MEASURES, UNSPECIFIED (9) Proteinuria Assessment/Plan: resolved continue to monitor renal function Problems reviewed: Yes Code(s): R80.9 - PROTEINURIA, UNSPECIFIED (10) Thrombocytopenia Assessment/Plan: resolved Problems reviewed: Yes Code(s): D69.6 - THROMBOCYTOPENIA, UNSPECIFIED (11) Hypertriglyceridemia Assessment/Plan: Appreciate orthophoto tech/draftsman consultation c/w Fenofibrate possible initiation Vascepa-might be a better option in view of increased LFTs Code(s): E78.1 - PURE HYPERGLYCERIDEMIA (12) Thrombocythemia Assessment/Plan: plt now 776 CT A/P ordered to r/o necrosis/infection Code(s): D47.3 - ESSENTIAL (HEMORRHAGIC) THROMBOCYTHEMIA Visit type - Emergency Visit Emergency Visit: Yes ED Registration Date: 03/22/19 Care time: The patient presented to the Emergency Department on the above date and was hospitalized for further evaluation of their emergent condition. - New Patient This patient is new to me today: No - Critical Care Critical Care patient: No - Discharge Referral Referred to [facility] Med P.C.: No
[2019-03-30 08:13] LABS: BASO % 0.8 % (0-2.0); EOS % 0.6 % (0-4.5); HEMATOCRIT 33.7 % (35.4-49); HEMOGLOBIN 11.3 GM/dL (11.7-16.9); LYMPH % 21.5 % (8-40); MCH 32.6 pg (25.7-33.7); MCHC 33.4 g/dl (32.0-35.9); MEAN CELL VOLUME 97.4 fl (80-96); MEAN PLT VOLUME 7.6 fl (7.5-11.1); MONO % 9.4 % (3.8-10.2); NEUT % 67.7 % (42.8-82.8); PLATELET COUNT 776 K/MM3 (134-434); RBC 3.46 M/mm3 (4.00-5.60); RDW 15.5 % (11.9-15.9); WHITE BLOOD COUNT 12.7 K/mm3 (4.0-10.0)
[2019-03-30 08:14] LABS: ALBUMIN 3.2 g/dl (3.4-5.0); BILIRUBIN,TOTAL 0.6 mg/dL (0.2-1); BLOOD UREA NITROGEN 13.8 mg/dL (7-18); CALCIUM 9.7 mg/dL (8.5-10.1); CREATININE 0.8 mg/dL (0.55-1.3); MAGNESIUM 2.3 mg/dL (1.8-2.4); POTASSIUM 4.7 mmol/L (3.5-5.1); TOT PROT 6.6 g/dl (6.4-8.2)
[2019-03-30 10:54] LABS: ANISOCYTOSIS 1+; MACROCYTOSIS 1+; PLATELET ESTIMATE INCREASED
[2019-03-30] MEDS: HEPARIN NA (PORCINE) 5,000 UNITS/ML 1ML VIAL SQ SCH ×2 (11:32→21:18)
[2019-03-30] MEDS: FENOFIBRIC ACID 45 MG CAP PO SCH (11:33)
--- NOTE | 2019-03-30 19:44 | PN ---
Progress Note, Physician History of Present Illness: Pt seen and examined. Events noted. Tolerating diet, denies abd pain/n/v but wbc rising. CT A/P results pending. - Current Medication List Current Medications: Active Medications Dextrose (D50w (Vial) -) 25 gm IVPUSH Q6H PRN PRN Reason: HYPOGLYCEMIA Fenofibric Acid (Trilipix -) 45 mg PO DAILY [facility] Last Admin: 03/30/19 11:33 Dose: 45 mg Heparin Sodium (Porcine) (Heparin -) 5,000 unit SQ BID [facility] Last Admin: 03/30/19 11:32 Dose: 5,000 unit Imipenem/Cilastatin Sodium 500 (mg/ Sodium Chloride) 100 mls @ 200 mls/hr IVPB Q8H-IV [facility]; Protocol Last Admin: 03/30/19 18:36 Dose: 200 mls/hr Insulin Aspart (Novolog Vial Sliding Scale -) 1 vial SQ ACHS [facility]; Protocol Last Admin: 03/30/19 18:35 Dose: Not Given - Objective Vital Signs: Vital Signs Temperature 97.7 F 03/30/19 18:00 Pulse Rate 82 03/30/19 18:00 Respiratory Rate 20 03/30/19 18:00 Blood Pressure 112/67 03/30/19 18:00 O2 Sat by Pulse Oximetry (%) 95 03/30/19 09:00 Constitutional: Yes: No Distress, Calm Cardiovascular: Yes: Regular Rate and Rhythm Respiratory: Yes: Regular Gastrointestinal: Yes: Normal Bowel Sounds, Soft Genitourinary: Yes: WNL Extremities: Yes: WNL Edema: No Integumentary: Yes: WNL Neurological: Yes: Alert, Oriented Labs: CBC, BMP 03/30/19 07:30 03/30/19 07:30 INR, PTT INR 0.93 (0.83-1.09) 03/23/19 11:50 Problem List - Problems (1) Acute pancreatitis Code(s): K85.90 - ACUTE PANCREATITIS WITHOUT NECROSIS OR INFECTION, UNSP Qualifiers: Pancreatitis type: alcohol induced Acute pancreatitis complication: unspecified Qualified Code(s): K85.20 - Alcohol induced acute pancreatitis without necrosis or infection (2) Alcohol withdrawal Code(s): F10.239 - ALCOHOL DEPENDENCE WITH WITHDRAWAL, UNSPECIFIED Qualifiers: Complication of substance-induced condition: with unspecified complication Qualified Code(s): F10.239 - Alcohol dependence with withdrawal, unspecified (3) Elevated lipase Code(s): R74.8 - ABNORMAL LEVELS OF OTHER SERUM ENZYMES (4) Necrosis of pancreas Code(s): K86.89 - OTHER SPECIFIED DISEASES OF PANCREAS (5) Thrombocytopenia Code(s): D69.6 - THROMBOCYTOPENIA, UNSPECIFIED Assessment/Plan - f/u CT results - continue Imipenem for now - monitor wbc trend, pt currently afebrile/comfortable -- GI following
[2019-03-30] MEDS ORDERED: IMIPENEM/CILASTATIN SODIUM 500 MG in SODIUM CHLORIDE 100 ML IVPB SCH ×2 (21:00→21:31)
[2019-03-30] MEDS ORDERED: INSULIN (NOVOLOG) ASPART 100 UNITS/ML 10ML VIAL ONE (21:15)
[2019-03-31] MEDS: IMIPENEM/CILASTATIN SODIUM 500 MG in SODIUM CHLORIDE 100 ML IVPB SCH ×2 (02:15→09:15)
[2019-03-31] MEDS: INSULIN SLIDING SCALE (NOVOLOG) 1 VIAL SQ SCH ×4 (06:00→21:45)
--- NOTE | 2019-03-31 07:45 | PN ---
Progress Note, Physician Chief Complaint: no complaints offered, no abdominal pain, wants to eat History of Present Illness: Patient is a 48 year old male with a significant past medical history of ETOH abuse. He reports that he had a withdrawal seizure 2 years ago and non since. He tells me his last drink was last week and cut out drinking on his own because he started to feel worse in the last few weeks. He has been weaker in the last two days and was not able to get up and go to work. He began vomiting all day yesterday, and all day today and was unable to keep anything down. He says the color of his vomitus was yellow, and denies coughing up blood. He reports diffuse abdominal pain, mostly to the upper quadrants, constant and sharp in quality. He notes anorexia and decreased PO intake. The patient also reports upper extremity tremors. During hospital stay, labs revealed elevated triglycerides at 1400, elevated cholesterol levels with elevated liver enzymes. He was transferred to the ICU for an insulin drip. An abdominal MRI with questionable focus in the head of the pancreas and possible acute pancreatic fluid. - Current Medication List Current Medications: Active Medications Dextrose (D50w (Vial) -) 25 gm IVPUSH Q6H PRN PRN Reason: HYPOGLYCEMIA Fenofibric Acid (Trilipix -) 45 mg PO DAILY [facility] Last Admin: 03/30/19 11:33 Dose: 45 mg Heparin Sodium (Porcine) (Heparin -) 5,000 unit SQ BID [facility] Last Admin: 03/30/19 21:18 Dose: 5,000 unit Imipenem/Cilastatin Sodium 500 (mg/ Sodium Chloride) 100 mls @ 200 mls/hr IVPB Q6H-IV [facility]; Protocol Last Admin: 03/31/19 02:15 Dose: 200 mls/hr Insulin Aspart (Novolog Vial Sliding Scale -) 1 vial SQ ACHS [facility]; Protocol Last Admin: 03/31/19 06:00 Dose: Not Given - Objective Vital Signs: Vital Signs Temperature 97.9 F 03/31/19 06:00 Pulse Rate 77 03/31/19 06:00 Respiratory Rate 20 03/31/19 06:00 Blood Pressure 113/64 03/31/19 06:00 O2 Sat by Pulse Oximetry (%) 95 03/30/19 09:00 Additional Findings/Remarks: Constitutional: Yes: Well Nourished, No Distress, Calm Eyes: Yes: WNL, Conjunctiva Clear HENT: Yes: WNL, Atraumatic, Normocephalic Neck: Yes: WNL, Supple, Trachea Midline Cardiovascular: Yes: WNL, Regular Rate and Rhythm Respiratory: Yes: WNL, Regular, CTA Bilaterally Gastrointestinal: Yes: WNL, Normal Bowel Sounds, Soft ...Rectal Exam: Yes: Deferred Genitourinary: Yes: WNL Breast(s): Yes: WNL Musculoskeletal: Yes: WNL Extremities: Yes: WNL Edema: No Peripheral Pulses WNL: Yes Peripheral Pulses: Left Radial: 2+, Right Radial: 2+, Left Doralis Pedis: 2+, Right Dorsalis Pedis: 2+, Left Femoral: 2+, Right Femoral: 2+ Integumentary: Yes: WNL Neurological: Yes: WNL, Alert, Oriented ...Motor Strength: WNL Psychiatric: Yes: WNL Labs: CBC, BMP 03/30/19 07:30 03/30/19 07:30 INR, PTT INR 0.93 (0.83-1.09) 03/23/19 11:50 - ....Imaging Cat Scan: Report Reviewed (03/30 CT A/P:Findings are again consistent with acute pancreatitis with heterogeneous attenuation of the pancreatic head and body mainly the pancreatic neck suggestive of neck process. Fluid around the pancreatic tail extending to the left perinephric space is again seen with interval faint peripheral enhancement. Cannot rule out superimposed infection. Continued close follow-up is recommended. 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 No stones or dilated biliary tract noted on US. Repeat CT A/P noted and unchanged from previous imaging Hepatitis A Ab positive/HB Core Ab negative HCV not detected Monitor LFTs, trending down Avoid hepatotoxic agents Code(s): R94.5 - ABNORMAL RESULTS OF LIVER FUNCTION STUDIES (2) Acute pancreatitis Assessment/Plan: [id number] CT noted no abd pain, abdominal exam unremarkable, mild leukocytosis Appreciate Surgery consultation trend lipase, 904 Code(s): K85.90 - ACUTE PANCREATITIS WITHOUT NECROSIS OR INFECTION, UNSP Qualifiers: Pancreatitis type: alcohol induced Acute pancreatitis complication: unspecified Qualified Code(s): K85.20 - Alcohol induced acute pancreatitis without necrosis or infection (3) Elevated lipase Assessment/Plan: lipase 904 continue to trend Code(s): R74.8 - ABNORMAL LEVELS OF OTHER SERUM ENZYMES (4) Hypocalcemia Assessment/Plan: resolving continue to trend Code(s): E83.51 - HYPOCALCEMIA (5) Hypokalemia Assessment/Plan: resolving cont to trend Code(s): E87.6 - HYPOKALEMIA (6) Hyponatremia Assessment/Plan: resolving cont to trend Code(s): E87.1 - HYPO-OSMOLALITY AND HYPONATREMIA (7) Necrosis of pancreas Assessment/Plan: WBC 10.6 CT A/P unchanged, physical exam unchanged c/w abx as per ID Code(s): K86.89 - OTHER SPECIFIED DISEASES OF PANCREAS (8) Prophylactic measure Assessment/Plan: FEN restart low fat low chol diet monitor electrolytes and replete PRN DVT heparin sq Dispo maintain as in patient full code discharge planning Code(s): Z29.9 - ENCOUNTER FOR PROPHYLACTIC MEASURES, UNSPECIFIED (9) Proteinuria Assessment/Plan: resolved continue to monitor renal function Problems reviewed: Yes Code(s): R80.9 - PROTEINURIA, UNSPECIFIED (10) Hypertriglyceridemia Assessment/Plan: Appreciate clothes drier repairer consultation c/w Fenofibrate Code(s): E78.1 - PURE HYPERGLYCERIDEMIA (11) Thrombocythemia Assessment/Plan: plt now [address] Carpenter Code(s): D47.3 - ESSENTIAL (HEMORRHAGIC) THROMBOCYTHEMIA Visit type - Emergency Visit Emergency Visit: Yes ED Registration Date: 03/22/19 Care time: The patient presented to the Emergency Department on the above date and was hospitalized for further evaluation of their emergent condition. - New Patient This patient is new to me today: No - Critical Care Critical Care patient: No - Discharge Referral Referred to [facility] Med P.C.: No
[2019-03-31] MEDS ORDERED: PT OWN MED DRAWER 7, Y5N ONE (09:04)
[2019-03-31 09:11] LABS: BASO % 1.6 % (0-2.0); EOS % 0.8 % (0-4.5); HEMATOCRIT 34.1 % (35.4-49); HEMOGLOBIN 11.6 GM/dL (11.7-16.9); LYMPH % 24.4 % (8-40); MCH 32.9 pg (25.7-33.7); MCHC 33.9 g/dl (32.0-35.9); MEAN CELL VOLUME 96.9 fl (80-96); MEAN PLT VOLUME 7.6 fl (7.5-11.1); NEUT % 64.2 % (42.8-82.8); PLATELET COUNT 881 K/MM3 (134-434); RBC 3.52 M/mm3 (4.00-5.60); RDW 15.7 % (11.9-15.9); WHITE BLOOD COUNT 10.8 K/mm3 (4.0-10.0)
[2019-03-31] MEDS: HEPARIN NA (PORCINE) 5,000 UNITS/ML 1ML VIAL SQ SCH ×2 (09:15→21:46)
[2019-03-31] MEDS: FENOFIBRIC ACID 45 MG CAP PO SCH ×2 (09:15→09:18)
[2019-03-31 09:34] LABS: ALBUMIN 3.5 g/dl (3.4-5.0); BILIRUBIN,TOTAL 0.8 mg/dL (0.2-1); BLOOD UREA NITROGEN 15.4 mg/dL (7-18); CALCIUM 9.9 mg/dL (8.5-10.1); CREATININE 0.9 mg/dL (0.55-1.3); MAGNESIUM 2.3 mg/dL (1.8-2.4); POTASSIUM 4.3 mmol/L (3.5-5.1); TOT PROT 7.1 g/dl (6.4-8.2)
[2019-03-31] MEDS ORDERED: INSULIN (NOVOLOG) ASPART 100 UNITS/ML 10ML VIAL ONE ×2 (11:36→21:07)
--- NOTE | 2019-03-31 12:05 | PN ---
Progress Note, Physician History of Present Illness: stable wbc trending down says he is hungry - Current Medication List Current Medications: Active Medications Dextrose (D50w (Vial) -) 25 gm IVPUSH Q6H PRN PRN Reason: HYPOGLYCEMIA Fenofibric Acid (Trilipix -) 45 mg PO DAILY [facility] Last Admin: 03/31/19 09:18 Dose: Not Given Heparin Sodium (Porcine) (Heparin -) 5,000 unit SQ BID [facility] Last Admin: 03/31/19 09:15 Dose: 5,000 unit Imipenem/Cilastatin Sodium 500 (mg/ Sodium Chloride) 100 mls @ 200 mls/hr IVPB Q6H-IV [facility]; Protocol Last Admin: 03/31/19 09:15 Dose: 200 mls/hr Insulin Aspart (Novolog Vial Sliding Scale -) 1 vial SQ ACHS [facility]; Protocol Last Admin: 03/31/19 11:41 Dose: Not Given - Objective Vital Signs: Vital Signs Temperature 97.9 F 03/31/19 06:00 Pulse Rate 77 03/31/19 06:00 Respiratory Rate 20 03/31/19 06:00 Blood Pressure 113/64 03/31/19 06:00 O2 Sat by Pulse Oximetry (%) 95 03/30/19 09:00 Constitutional: Yes: No Distress, Calm Cardiovascular: Yes: S1, S2 Respiratory: Yes: Regular, CTA Bilaterally Gastrointestinal: Yes: Normal Bowel Sounds, Soft Musculoskeletal: Yes: WNL Extremities: Yes: WNL Neurological: Yes: Alert, Oriented Psychiatric: Yes: Alert, Oriented Labs: CBC, BMP 03/31/19 08:58 03/31/19 08:58 INR, PTT INR 0.93 (0.83-1.09) 03/23/19 11:50 Assessment/Plan Problem List - Problems (1) Hypertriglyceridemia Code(s): E78.1 - PURE HYPERGLYCERIDEMIA (2) Acute pancreatitis Code(s): K85.90 - ACUTE PANCREATITIS WITHOUT NECROSIS OR INFECTION, UNSP Qualifiers: Pancreatitis type: alcohol induced Acute pancreatitis complication: unspecified Qualified Code(s): K85.20 - Alcohol induced acute pancreatitis without necrosis or infection (3) Necrosis of pancreas Code(s): K86.89 - OTHER SPECIFIED DISEASES OF PANCREAS (4) Thrombocytopenia Code(s): D69.6 - THROMBOCYTOPENIA, UNSPECIFIED (5) Elevated lipase Code(s): R74.8 - ABNORMAL LEVELS OF OTHER SERUM ENZYMES (6) Proteinuria Code(s): R80.9 - PROTEINURIA, UNSPECIFIED (7) Alcohol withdrawal Code(s): F10.239 - ALCOHOL DEPENDENCE WITH WITHDRAWAL, UNSPECIFIED Qualifiers: Complication of substance-induced condition: with unspecified complication Qualified Code(s): F10.239 - Alcohol dependence with withdrawal, unspecified (8) Hypocalcemia Code(s): E83.51 - HYPOCALCEMIA (9) Hypokalemia Code(s): E87.6 - HYPOKALEMIA (10) Hyponatremia Code(s): E87.1 - HYPO-OSMOLALITY AND HYPONATREMIA (11) Mass of soft tissue of upper arm Code(s): R22.30 - LOCALIZED SWELLING, MASS AND LUMP, UNSPECIFIED UPPER LIMB plan continue abx imaging studies noted will d/w the team gi on board
--- NOTE | 2019-03-31 13:34 | PN.GI ---
GI Progress Note Subjective: Tolerating PO No abdominal pain Repeat CT scan: pancreatitis changes, ? faint peripheral enhancement of the peripancreatic collection - Objective Vital Signs: Vital Signs Temperature 97.9 F 03/31/19 06:00 Pulse Rate 77 03/31/19 06:00 Respiratory Rate 20 03/31/19 06:00 Blood Pressure 113/64 03/31/19 06:00 O2 Sat by Pulse Oximetry (%) 95 03/30/19 09:00 Constitutional: Calm Eyes: No: Sclera Icterus Cardiovascular: Yes: Regular Rate and Rhythm Respiratory: Yes: CTA Bilaterally Gastrointestinal Inspection: No: Distention ...Auscultate: Yes: Normoactive Bowel Sounds ...Palpate: No: Hepatomegaly, Splenomegaly, Tenderness ...Percussion: No: Tympanitic Edema: No (No LE edema) Neurological: Yes: Alert Labs: CBC, BMP 03/31/19 08:58 03/31/19 08:58 INR, PTT INR 0.93 (0.83-1.09) 03/23/19 11:50 Problem List - Problems (1) Acute pancreatitis Assessment/Plan: Clinically looks well has been afebrile ? development of early fluid collection. Off antibiotics now and will monitor. If fevers/rising WBC's discussed with Dr. Rivero, collection amenable to CT guided aspiration. Code(s): K85.90 - ACUTE PANCREATITIS WITHOUT NECROSIS OR INFECTION, UNSP Qualifiers: Pancreatitis type: alcohol induced Acute pancreatitis complication: unspecified Qualified Code(s): K85.20 - Alcohol induced acute pancreatitis without necrosis or infection (2) Abnormal liver function tests Code(s): R94.5 - ABNORMAL RESULTS OF LIVER FUNCTION STUDIES
[2019-03-31 13:57] LABS: ANISOCYTOSIS 1+; MACROCYTOSIS 0; OVALOCYTE 1+; PLATELET ESTIMATE INCREASED; TEAR DROP CELLS 1+
--- NOTE | 2019-03-31 16:00 | PN ---
Progress Note (short form) - Note Progress Note: Hematology and oncology follow up Subjective: The patient is primarily spainish speaking. Interview conducted with [employer] translator/interpreter #[id number] We have been reconsulted for new thrombocytosis and leukocytosis. Upon interview, patient has no complaints and states he feels better. The patient denies abdominal pain, nausea or fevers. The patient Has been on Primaxin q8hr since 03/23 per ID. ROS: Patient's review of systems were negative except as noted in HPI Objective: Vital Signs Temperature 98.4 F 03/31/19 14:34 Pulse Rate 89 03/31/19 14:34 Respiratory Rate 20 03/31/19 14:34 Blood Pressure 107/59 L 03/31/19 14:34 O2 Sat by Pulse Oximetry (%) 95 03/30/19 09:00 Physical Exam: Gen: Patient is well appearing, found oob sitting in a chair by the window. Lungs: Clear to auscultation bilaterally down to the bases. Heart: regular rate and rhythm, s1, s2, heard. No murmurs, gallops or rubs heard. Abdomen: Soft, nontender, nondistended. Bowel sounds heard. Extremities: no peripheral edema. CBC, BMP 03/31/19 08:58 03/31/19 08:58 Assessment and plan: The patient is a 48 yo m w/ PMH ETOH abuse who was admitted for acute necrotizing pancreatitis. #thrombocytosis -This is likely reactive -The patient was thrombocytopenic, then shows a gradual increase in platelets. -Platelets 881 this morning -The patient has been on Primaxin since 03/23; thrombocytosis is a known side effect of this medication -The patient's repeat ct scan shows that his peripancreatic fluid is now enhancing; this could be indicative of infection -would recommend monitoring CBC daily to document downtrend of platelets now that patient is off of ABX -further pancreatic workup and treatment to be provided by GI #Leukocytosis -the count in trending down today -he was not goven steriods during this admission -this could also be reactive -given the new CT findings, this could also be an early sign of infection
--- NOTE | 2019-03-31 18:09 | PN ---
Teaching Attending Note Name of Resident: Ayden Tabares ATTENDING PHYSICIAN STATEMENT I saw and evaluated the patient. I reviewed the resident's note and discussed the case with the resident. I agree with the resident's findings and plan as documented. SUBJECTIVE: Patient seen and examined Patient presented with acute pancreatitis with platelet count of 116 Gradually has increased where now patient is with thrombocytosi. This is a a reactive process. Flare of pancreatitis as suggested on current imaging or medication induced , or infection are all possible etiologies for reacitive thrombocytosis in this patient. Would monitor. No need for anti- platelet therapy. Treat underlying pathology . OBJECTIVE: ASSESSMENT AND PLAN:
[2019-04-01] MEDS: INSULIN SLIDING SCALE (NOVOLOG) 1 VIAL SQ SCH ×4 (06:08→21:20)
--- NOTE | 2019-04-01 08:04 | PN.GI ---
GI Progress Note Subjective: states he is feeling well denies any abdominal pain / fever - Objective Vital Signs: Vital Signs Temperature 98.5 F 04/01/19 06:00 Pulse Rate 75 04/01/19 06:00 Respiratory Rate 18 04/01/19 06:00 Blood Pressure 110/64 04/01/19 06:00 O2 Sat by Pulse Oximetry (%) 95 03/30/19 09:00 Constitutional: Well Nourished, No Distress, Calm Eyes: Yes: WNL HENT: Yes: WNL Neck: Yes: WNL, Supple Cardiovascular: Yes: WNL, Regular Rate and Rhythm Respiratory: Yes: WNL, Regular, CTA Bilaterally Gastrointestinal Inspection: Yes: WNL ...Auscultate: Yes: Normoactive Bowel Sounds ...Rectal Exam: Yes: WNL Edema: No Labs: CBC, BMP 03/31/19 08:58 03/31/19 08:58 INR, PTT INR 0.93 (0.83-1.09) 03/23/19 11:50 Problem List - Problems (1) Acute pancreatitis Assessment/Plan: slight leukocystosis without fever rec acevedo culture/ ID & surgery evaluation. If worsens or is accompanied by fever plan for CT guided aspiration. repeat labs in the am c/w diet plan of care will be discussed with primary team Code(s): K85.90 - ACUTE PANCREATITIS WITHOUT NECROSIS OR INFECTION, UNSP Qualifiers: Pancreatitis type: alcohol induced Acute pancreatitis complication: unspecified Qualified Code(s): K85.20 - Alcohol induced acute pancreatitis without necrosis or infection
--- NOTE | 2019-04-01 08:07 | PN ---
Physical Exam: History of Present Illness: Patient is a 48 year old male with a significant past medical history of ETOH abuse. He reports that he had a withdrawal seizure 2 years ago and non since. He tells me his last drink was last week and cut out drinking on his own because he started to feel worse in the last few weeks. He has been weaker in the last two days and was not able to get up and go to work. He began vomiting all day yesterday, and all day today and was unable to keep anything down. He says the color of his vomitus was yellow, and denies coughing up blood. He reports diffuse abdominal pain, mostly to the upper quadrants, constant and sharp in quality. He notes anorexia and decreased PO intake. The patient also reports upper extremity tremors. During hospital stay, labs revealed elevated triglycerides at 1400, elevated cholesterol levels with elevated liver enzymes. He was transferred to the ICU for an insulin drip. An abdominal MRI with questionable focus in the head of the pancreas and possible acute pancreatic fluid. SUBJECTIVE: Patient seen and examined. PT states he feels better. Denies CP, Fever, chills, N/V/D. Denies ABD pain. No acute signs or symptoms of distress. OBJECTIVE: Vital Signs Period Temp Pulse Resp BP Sys/Garcia Pulse Ox Last 24 Hr 98.1 F-98.8 F 75-89 18-20 107-130/59-76 GENERAL: The patient is awake, alert, and fully oriented, in no acute distress. HEAD: Normal with no signs of trauma. EYES: PERRL, extraocular movements intact, sclera anicteric, conjunctiva clear. No ptosis. ENT: Ears normal, nares patent, oropharynx clear without exudates, moist mucous membranes. NECK: Trachea midline, full range of motion, supple. LUNGS: Breath sounds equal, clear to auscultation bilaterally, no wheezes, no crackles, no accessory muscle use. HEART: Regular rate and rhythm, S1, S2 ABDOMEN: Soft, nontender, nondistended, normoactive bowel sounds, no guarding, no rebound, no hepatosplenomegaly EXTREMITIES: 2+ pulses, warm, well-perfused, no edema. NEUROLOGICAL: Cranial nerves II through XII grossly intact. Normal speech, gait not observed. PSYCH: Normal mood, normal affect. SKIN: Warm, dry, normal turgor, no rashes or lesions noted Laboratory Results - last 24 hr 03/31/19 03/31/19 03/31/19 08:58 08:58 08:58 WBC 10.8 H RBC 3.52 L Hgb 11.6 L Hct 34.1 L MCV 96.9 H MCH 32.9 MCHC 33.9 RDW 15.7 Plt Count 881 H MPV 7.6 Absolute Neuts (auto) 6.9 Neutrophils % 64.2 Neutrophils % (Manual) 45.8 Band Neutrophils % 5.2 Lymphocytes % 24.4 Lymphocytes % (Manual) 21.9 Monocytes % 9.0 Monocytes % (Manual) 4 Eosinophils % 0.8 Eosinophils % (Manual) 1.0 Basophils % 1.6 Basophils % (Manual) 0.0 Myelocytes % (Man) 4 H D Promyelocytes % (Man) 0 Blast Cells % (Manual) 0 Nucleated RBC % 0 Metamyelocytes 6 H D Hypochromia 0 Platelet Estimate Increased Platelet Comment Present Polychromasia 1+ Poikilocytosis 1+ Anisocytosis 1+ Microcytosis 1+ Macrocytosis 0 Spherocytes 1+ Tear Drop Cells 1+ Ovalocytes 1+ Sodium 138 Potassium 4.3 Chloride 101 Carbon Dioxide 26 Anion Gap 10 BUN 15.4 Creatinine 0.9 Est GFR (CKD-EPI)AfAm 117.47 Est GFR (CKD-EPI)NonAf 101.35 POC Glucometer Random Glucose 137 H Lactic Acid 0.8 Calcium 9.9 Magnesium 2.3 Total Bilirubin 0.8 AST 78 H ALT 120 H Alkaline Phosphatase 172 H Total Protein 7.1 Albumin 3.5 Lipase 904 H 03/31/19 03/31/19 03/31/19 11:38 17:00 21:45 WBC RBC Hgb Hct MCV MCH MCHC RDW Plt Count MPV Absolute Neuts (auto) Neutrophils % Neutrophils % (Manual) Band Neutrophils % Lymphocytes % Lymphocytes % (Manual) Monocytes % Monocytes % (Manual) Eosinophils % Eosinophils % (Manual) Basophils % Basophils % (Manual) Myelocytes % (Man) Promyelocytes % (Man) Blast Cells % (Manual) Nucleated RBC % Metamyelocytes Hypochromia Platelet Estimate Platelet Comment Polychromasia Poikilocytosis Anisocytosis Microcytosis Macrocytosis Spherocytes Tear Drop Cells Ovalocytes Sodium Potassium Chloride Carbon Dioxide Anion Gap BUN Creatinine Est GFR (CKD-EPI)AfAm Est GFR (CKD-EPI)NonAf POC Glucometer 116 153 129 Random Glucose Lactic Acid Calcium Magnesium Total Bilirubin AST ALT Alkaline Phosphatase Total Protein Albumin Lipase 04/01/19 05:53 WBC RBC Hgb Hct MCV MCH MCHC RDW Plt Count MPV Absolute Neuts (auto) Neutrophils % Neutrophils % (Manual) Band Neutrophils % Lymphocytes % Lymphocytes % (Manual) Monocytes % Monocytes % (Manual) Eosinophils % Eosinophils % (Manual) Basophils % Basophils % (Manual) Myelocytes % (Man) Promyelocytes % (Man) Blast Cells % (Manual) Nucleated RBC % Metamyelocytes Hypochromia Platelet Estimate Platelet Comment Polychromasia Poikilocytosis Anisocytosis Microcytosis Macrocytosis Spherocytes Tear Drop Cells Ovalocytes Sodium Potassium Chloride Carbon Dioxide Anion Gap BUN Creatinine Est GFR (CKD-EPI)AfAm Est GFR (CKD-EPI)NonAf POC Glucometer 139 Random Glucose Lactic Acid Calcium Magnesium Total Bilirubin AST ALT Alkaline Phosphatase Total Protein Albumin Lipase Active Medications Generic Name Dose Route Start Last Admin Trade Name Freq PRN Reason Stop Dose Admin Dextrose 25 gm 03/27/19 19:07 D50w (Vial) - IVPUSH Q6H PRN HYPOGLYCEMIA Fenofibric Acid 45 mg 03/28/19 10:00 03/31/19 09:18 Trilipix - PO Not Given DAILY [facility]A Heparin Sodium (Porcine) 5,000 unit 03/27/19 22:00 03/31/19 21:46 Heparin - SQ 5,000 unit BID [facility]A Administration Insulin Aspart 1 vial 03/28/19 11:00 04/01/19 06:08 Novolog Vial Sliding Scale - SQ Not Given ACHS [facility] Protocol ASSESSMENT/PLAN: ....Imaging Cat Scan: Report Reviewed (03/30 CT A/P:Findings are again consistent with acute pancreatitis with heterogeneous attenuation of the pancreatic head and body mainly the pancreatic neck suggestive of neck process. Fluid around the pancreatic tail extending to the left perinephric space is again seen with interval faint peripheral enhancement. Cannot rule out superimposed infection. Continued close follow-up is recommended. 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 No stones or dilated biliary tract noted on US. Repeat CT A/P noted and unchanged from previous imaging Hepatitis A Ab positive/HB Core Ab negative HCV not detected Monitor LFTs, trending down Avoid hepatotoxic agents Code(s): R94.5 - ABNORMAL RESULTS OF LIVER FUNCTION STUDIES (2) Acute pancreatitis Assessment/Plan: Per GI-Dr. Merritt --slight leukocystosis without fever rec acevedo culture/ ID & surgery evaluation. --If worsens or is accompanied by fever plan for CT guided aspiration. --repeat labs in the am --c/w diet trend lipase, 904 -ID Contacted- Ale Brizuela -Discussed over the phone with Dr. Shipley (GI Surgeon) --Per Convo- unless patient is symptomatic then repeat scan on Wednesday. Code(s): K85.90 - ACUTE PANCREATITIS WITHOUT NECROSIS OR INFECTION, UNSP Qualifiers: Pancreatitis type: alcohol induced Acute pancreatitis complication: unspecified Qualified Code(s): K85.20 - Alcohol induced acute pancreatitis without necrosis or infection (3) Elevated lipase Assessment/Plan: lipase 904 continue to trend Code(s): R74.8 - ABNORMAL LEVELS OF OTHER SERUM ENZYMES (4) Hypocalcemia Assessment/Plan: Resolved Ca 9.6 continue to trend Code(s): E83.51 - HYPOCALCEMIA (5) Hypokalemia Assessment/Plan: Resolved K+ 4.5 cont to trend Code(s): E87.6 - HYPOKALEMIA (6) Hyponatremia Assessment/Plan: Resolved- Na+ 138 cont to trend Code(s): E87.1 - HYPO-OSMOLALITY AND HYPONATREMIA (7) Necrosis of pancreas Assessment/Plan: WBC 13.9 ID Contacted Ale Brizuela --stated she will restart ABX Code(s): K86.89 - OTHER SPECIFIED DISEASES OF PANCREAS (8) Prophylactic measure Assessment/Plan: FEN restart low fat low chol diet monitor electrolytes and replete PRN DVT heparin sq Dispo maintain as in patient full code discharge planning Code(s): Z29.9 - ENCOUNTER FOR PROPHYLACTIC MEASURES, UNSPECIFIED (9) Proteinuria Assessment/Plan: resolved continue to monitor renal function Problems reviewed: Yes Code(s): R80.9 - PROTEINURIA, UNSPECIFIED (10) Hypertriglyceridemia Assessment/Plan: Appreciate arbitrator consultation c/w Fenofibrate Code(s): E78.1 - PURE HYPERGLYCERIDEMIA (11) Thrombocythemia Assessment/Plan: plt [address] Sands --Thrombocytosis -This is likely reactive -The patient was thrombocytopenic, then shows a gradual increase in platelets. -Platelets 881 this morning -The patient has been on Primaxin since 03/23; thrombocytosis is a known side effect of this medication -The patient's repeat ct scan shows that his peripancreatic fluid is now enhancing; this could be indicative of infection -would recommend monitoring CBC daily to document downtrend of platelets now that patient is off of ABX -further pancreatic workup and treatment to be provided by GI Plts are trending up after DC abx -Hematology consulted-Dr. Yang Code(s): D47.3 - ESSENTIAL (HEMORRHAGIC) THROMBOCYTHEMIA Visit type - Emergency Visit Emergency Visit: Yes ED Registration Date: 03/22/19 Care time: The patient presented to the Emergency Department on the above date and was hospitalized for further evaluation of their emergent condition. - New Patient This patient is new to me today: Yes Date on this admission: 04/01/19 - Critical Care Critical Care patient: No - Discharge Referral Referred to [facility] Med P.C.: No
[2019-04-01 08:59] LABS: BASO % 1.2 % (0-2.0); EOS % 0.9 % (0-4.5); HEMATOCRIT 33.6 % (35.4-49); HEMOGLOBIN 11.3 GM/dL (11.7-16.9); LYMPH % 23.2 % (8-40); MCH 32.9 pg (25.7-33.7); MCHC 33.8 g/dl (32.0-35.9); MEAN CELL VOLUME 97.5 fl (80-96); MEAN PLT VOLUME 7.7 fl (7.5-11.1); MONO % 6.7 % (3.8-10.2); PLATELET COUNT 949 K/MM3 (134-434); RBC 3.45 M/mm3 (4.00-5.60); RDW 16.7 % (11.9-15.9); WHITE BLOOD COUNT 13.9 K/mm3 (4.0-10.0)
[2019-04-01] MEDS ORDERED: PT OWN MED DRAWER 7, Y5N ONE ×2 (09:12→16:40)
[2019-04-01 09:21] LABS: ALBUMIN 3.6 g/dl (3.4-5.0); BILIRUBIN,TOTAL 0.7 mg/dL (0.2-1); BLOOD UREA NITROGEN 16.4 mg/dL (7-18); CALCIUM 9.6 mg/dL (8.5-10.1); MAGNESIUM 2.5 mg/dL (1.8-2.4); POTASSIUM 4.5 mmol/L (3.5-5.1)
[2019-04-01] MEDS: HEPARIN NA (PORCINE) 5,000 UNITS/ML 1ML VIAL SQ SCH ×2 (09:26→21:20)
[2019-04-01] MEDS: FENOFIBRIC ACID 45 MG CAP PO SCH (09:26)
[2019-04-01 12:22] LABS: PLATELET ESTIMATE SIGNIFICANT INCREASE
[2019-04-01 12:23] LABS: OVALOCYTE 1+; TARGET CELLS 1+
--- NOTE | 2019-04-01 15:46 | PN ---
Progress Note, Physician History of Present Illness: Pt states he feels well. Denies abd pain/n/v. Denies back pain. Antibiotics d/c' d yesterday, wbc elevated today. CT results noted. - Current Medication List Current Medications: Active Medications Dextrose (D50w (Vial) -) 25 gm IVPUSH Q6H PRN PRN Reason: HYPOGLYCEMIA Fenofibric Acid (Trilipix -) 45 mg PO DAILY [facility] Last Admin: 04/01/19 09:26 Dose: 45 mg Heparin Sodium (Porcine) (Heparin -) 5,000 unit SQ BID [facility] Last Admin: 04/01/19 09:26 Dose: 5,000 unit Insulin Aspart (Novolog Vial Sliding Scale -) 1 vial SQ ACHS [facility]; Protocol Last Admin: 04/01/19 12:02 Dose: Not Given - Objective Vital Signs: Vital Signs Temperature 97.6 F 04/01/19 14:30 Pulse Rate 82 04/01/19 14:30 Respiratory Rate 20 04/01/19 14:30 Blood Pressure 110/68 04/01/19 14:30 O2 Sat by Pulse Oximetry (%) 95 03/30/19 09:00 Constitutional: Yes: No Distress, Calm Cardiovascular: Yes: Regular Rate and Rhythm Respiratory: Yes: Regular Gastrointestinal: Yes: Normal Bowel Sounds, Soft Genitourinary: Yes: WNL Extremities: Yes: WNL Integumentary: Yes: WNL Neurological: Yes: Alert, Oriented Labs: CBC, BMP 04/01/19 08:05 04/01/19 08:05 INR, PTT INR 0.93 (0.83-1.09) 03/23/19 11:50 Laboratory Results - last 24 hr 03/31/19 03/31/19 03/31/19 08:58 17:00 21:45 WBC RBC Hgb Hct MCV MCH MCHC RDW Plt Count MPV Absolute Neuts (auto) Total Counted Neutrophils % Neutrophils % (Manual) 45.8 Band Neutrophils % 5.2 Lymphocytes % Lymphocytes % (Manual) 21.9 Monocytes % Monocytes % (Manual) 4 Eosinophils % Eosinophils % (Manual) 1.0 Basophils % Basophils % (Manual) 0.0 Myelocytes % (Man) 4 H D Promyelocytes % (Man) 0 Blast Cells % (Manual) 0 Nucleated RBC % Metamyelocytes 6 H D Hypochromia 0 Platelet Estimate Increased Platelet Comment Present Polychromasia 1+ Poikilocytosis 1+ Anisocytosis 1+ Microcytosis 1+ Macrocytosis 0 Spherocytes 1+ Target Cells Tear Drop Cells 1+ Ovalocytes 1+ Sodium Potassium Chloride Carbon Dioxide Anion Gap BUN Creatinine Est GFR (CKD-EPI)AfAm Est GFR (CKD-EPI)NonAf POC Glucometer 153 129 Random Glucose Calcium Magnesium Total Bilirubin AST ALT Alkaline Phosphatase Total Protein Albumin 04/01/19 04/01/19 04/01/19 05:53 08:05 08:05 WBC 13.9 H RBC 3.45 L Hgb 11.3 L Hct 33.6 L MCV 97.5 H MCH 32.9 MCHC 33.8 RDW 16.7 H Plt Count 949 H MPV 7.7 Absolute Neuts (auto) 9.5 H Total Counted 100 Neutrophils % 68.0 Neutrophils % (Manual) 53.0 Band Neutrophils % 5.0 Lymphocytes % 23.2 Lymphocytes % (Manual) 25.0 Monocytes % 6.7 Monocytes % (Manual) 8 D Eosinophils % 0.9 Eosinophils % (Manual) 3.0 D Basophils % 1.2 Basophils % (Manual) 2.0 Myelocytes % (Man) Promyelocytes % (Man) Blast Cells % (Manual) Nucleated RBC % 0 Metamyelocytes Hypochromia Platelet Estimate Significant increase Platelet Comment Giant platelets Polychromasia 1+ Poikilocytosis Anisocytosis Microcytosis 1+ Macrocytosis Spherocytes 1+ Target Cells 1+ Tear Drop Cells Ovalocytes 1+ Sodium 138 Potassium 4.5 Chloride 102 Carbon Dioxide 28 Anion Gap 8 BUN 16.4 Creatinine 1.0 Est GFR (CKD-EPI)AfAm 103.42 Est GFR (CKD-EPI)NonAf 89.23 POC Glucometer 139 Random Glucose 149 H Calcium 9.6 Magnesium 2.5 H Total Bilirubin 0.7 AST 63 H ALT 114 H Alkaline Phosphatase 158 H Total Protein 7.0 Albumin 3.6 04/01/19 12:00 WBC RBC Hgb Hct MCV MCH MCHC RDW Plt Count MPV Absolute Neuts (auto) Total Counted Neutrophils % Neutrophils % (Manual) Band Neutrophils % Lymphocytes % Lymphocytes % (Manual) Monocytes % Monocytes % (Manual) Eosinophils % Eosinophils % (Manual) Basophils % Basophils % (Manual) Myelocytes % (Man) Promyelocytes % (Man) Blast Cells % (Manual) Nucleated RBC % Metamyelocytes Hypochromia Platelet Estimate Platelet Comment Polychromasia Poikilocytosis Anisocytosis Microcytosis Macrocytosis Spherocytes Target Cells Tear Drop Cells Ovalocytes Sodium Potassium Chloride Carbon Dioxide Anion Gap BUN Creatinine Est GFR (CKD-EPI)AfAm Est GFR (CKD-EPI)NonAf POC Glucometer 138 Random Glucose Calcium Magnesium Total Bilirubin AST ALT Alkaline Phosphatase Total Protein Albumin Microbiology 03/30/19 13:30 Blood - Peripheral Venous Blood Culture - Preliminary NO GROWTH OBTAINED AFTER 48 HOURS, INCUBATION TO CONTINUE FOR 3 DAYS. 03/30/19 13:25 Blood - Peripheral Venous Blood Culture - Preliminary NO GROWTH OBTAINED AFTER 48 HOURS, INCUBATION TO CONTINUE FOR 3 DAYS. 03/30/19 20:00 Urine - Urine Clean Catch Urine Culture - Final NO GROWTH OBTAINED 03/22/19 15:18 Urine - Urine Clean Catch Urine Culture - Final Normal Urogenital [place] - ....Imaging Cat Scan: Report Reviewed Problem List - Problems (1) Acute pancreatitis Code(s): K85.90 - ACUTE PANCREATITIS WITHOUT NECROSIS OR INFECTION, UNSP Qualifiers: Pancreatitis type: alcohol induced Acute pancreatitis complication: unspecified Qualified Code(s): K85.20 - Alcohol induced acute pancreatitis without necrosis or infection (2) Alcohol withdrawal Code(s): F10.239 - ALCOHOL DEPENDENCE WITH WITHDRAWAL, UNSPECIFIED Qualifiers: Complication of substance-induced condition: with unspecified complication Qualified Code(s): F10.239 - Alcohol dependence with withdrawal, unspecified (3) Elevated lipase Code(s): R74.8 - ABNORMAL LEVELS OF OTHER SERUM ENZYMES (4) Necrosis of pancreas Code(s): K86.89 - OTHER SPECIFIED DISEASES OF PANCREAS (5) Thrombocytopenia Code(s): D69.6 - THROMBOCYTOPENIA, UNSPECIFIED Assessment/Plan -- Leukocytosis noted today, antibiotics were stopped yesterday -- CT reveals collection with faint enhancement in pancreatic tail, can not r/o infection -- platelets continuing to trend up, GI/Hematology notes reviewed -- in light of CT findings suggest restart antibiotics and evaluation to assess whether drainage can be done -- recent blood cultures negative so far -- repeat cbc, cmp, lipase to monitor D/W BERNIE Iqbal
[2019-04-01] MEDS: IMIPENEM/CILASTATIN SODIUM 500 MG in SODIUM CHLORIDE 100 ML IVPB SCH ×2 (16:47→21:20)
[2019-04-02] MEDS: IMIPENEM/CILASTATIN SODIUM 500 MG in SODIUM CHLORIDE 100 ML IVPB SCH ×4 (03:00→21:11)
[2019-04-02] MEDS: INSULIN SLIDING SCALE (NOVOLOG) 1 VIAL SQ SCH ×4 (06:38→21:22)
--- NOTE | 2019-04-02 07:30 | PN ---
Progress Note, Physician Chief Complaint: no complaints offered, no abdominal pain, wants to go home History of Present Illness: Patient is a 48 year old male with a significant past medical history of ETOH abuse. He reports that he had a withdrawal seizure 2 years ago and non since. He tells me his last drink was last week and cut out drinking on his own because he started to feel worse in the last few weeks. He has been weaker in the last two days and was not able to get up and go to work. He began vomiting all day yesterday, and all day today and was unable to keep anything down. He says the color of his vomitus was yellow, and denies coughing up blood. He reports diffuse abdominal pain, mostly to the upper quadrants, constant and sharp in quality. He notes anorexia and decreased PO intake. The patient also reports upper extremity tremors. During hospital stay, labs revealed elevated triglycerides at 1400, elevated cholesterol levels with elevated liver enzymes. He was transferred to the ICU for an insulin drip. An abdominal MRI with questionable focus in the head of the pancreas and possible acute pancreatic fluid. - Current Medication List Current Medications: Active Medications Dextrose (D50w (Vial) -) 25 gm IVPUSH Q6H PRN PRN Reason: HYPOGLYCEMIA Fenofibric Acid (Trilipix -) 45 mg PO DAILY [facility] Last Admin: 04/01/19 09:26 Dose: 45 mg Heparin Sodium (Porcine) (Heparin -) 5,000 unit SQ BID [facility]URA Last Admin: 04/01/19 21:20 Dose: 5,000 unit Imipenem/Cilastatin Sodium 500 (mg/ Sodium Chloride) 100 mls @ 100 mls/hr IVPB Q6H-IV LAURA; Protocol Last Admin: 04/02/19 03:00 Dose: 100 mls/hr Insulin Aspart (Novolog Vial Sliding Scale -) 1 vial SQ ACHS [facility]; Protocol Last Admin: 04/02/19 06:38 Dose: Not Given - Objective Vital Signs: Vital Signs Temperature 98.4 F 04/01/19 18:00 Pulse Rate 80 04/01/19 22:00 Respiratory Rate 20 04/01/19 22:00 Blood Pressure 116/58 L 04/01/19 22:00 O2 Sat by Pulse Oximetry (%) 98 04/01/19 21:00 Additional Findings/Remarks: Constitutional: Yes: Well Nourished, No Distress, Calm Eyes: Yes: WNL, Conjunctiva Clear HENT: Yes: WNL, Atraumatic, Normocephalic Neck: Yes: WNL, Supple, Trachea Midline Cardiovascular: Yes: WNL, Regular Rate and Rhythm Respiratory: Yes: WNL, Regular, CTA Bilaterally Gastrointestinal: Yes: WNL, Normal Bowel Sounds, Soft ...Rectal Exam: Yes: Deferred Genitourinary: Yes: WNL Breast(s): Yes: WNL Musculoskeletal: Yes: WNL Extremities: Yes: WNL Edema: No Peripheral Pulses WNL: Yes Peripheral Pulses: Left Radial: 2+, Right Radial: 2+, Left Doralis Pedis: 2+, Right Dorsalis Pedis: 2+, Left Femoral: 2+, Right Femoral: 2+ Integumentary: Yes: WNL Neurological: Yes: WNL, Alert, Oriented ...Motor Strength: WNL Psychiatric: Yes: WNL Labs: CBC, BMP 04/01/19 08:05 04/01/19 08:05 INR, PTT INR 0.93 (0.83-1.09) 03/23/19 11:50 - ....Imaging Cat Scan: Report Reviewed (03/30 CT A/P:Findings are again consistent with acute pancreatitis with heterogeneous attenuation of the pancreatic head and body mainly the pancreatic neck suggestive of neck process. Fluid around the pancreatic tail extending to the left perinephric space is again seen with interval faint peripheral enhancement. Cannot rule out superimposed infection. Continued close follow-up is recommended. Fatty liver A 9 mm likely cyst in medial segment of the left hepatic lobe again seen) Problem List - Problems (1) Abnormal liver function tests Assessment/Plan: appreciate GI consultation CT resulted noted Hepatitis A Ab positive/HB Core Ab negative HCV not detected Monitor LFTs, trending down Avoid hepatotoxic agents Code(s): R94.5 - ABNORMAL RESULTS OF LIVER FUNCTION STUDIES (2) Acute pancreatitis Assessment/Plan: repeat CT noted no abd pain, tolerating diet abdominal exam unremarkable, leukocytosis-trending down 11 from 13 afebrile, if spikes will repeat imaging as speak with Dr Lai regarding drainage Appreciate Surgery consultation lipase trending down Code(s): K85.90 - ACUTE PANCREATITIS WITHOUT NECROSIS OR INFECTION, UNSP Qualifiers: Pancreatitis type: alcohol induced Acute pancreatitis complication: unspecified Qualified Code(s): K85.20 - Alcohol induced acute pancreatitis without necrosis or infection (3) Elevated lipase Assessment/Plan: lipase 795 continue to trend Code(s): R74.8 - ABNORMAL LEVELS OF OTHER SERUM ENZYMES (4) Hypocalcemia Assessment/Plan: resolved continue to trend Code(s): E83.51 - HYPOCALCEMIA (5) Hypokalemia Assessment/Plan: resolved cont to trend Code(s): E87.6 - HYPOKALEMIA (6) Hyponatremia Assessment/Plan: resolved cont to trend Code(s): E87.1 - HYPO-OSMOLALITY AND HYPONATREMIA (7) Necrosis of pancreas Assessment/Plan: WBC 11.0 CT A/P noted imipenem stopped then restarted with rise in WBC continue to monitor Code(s): K86.89 - OTHER SPECIFIED DISEASES OF PANCREAS (8) Prophylactic measure Assessment/Plan: FEN low fat low chol diet monitor electrolytes and replete PRN DVT heparin sq Dispo maintain as in patient full code discharge planning Code(s): Z29.9 - ENCOUNTER FOR PROPHYLACTIC MEASURES, UNSPECIFIED (9) Proteinuria Assessment/Plan: resolved continue to monitor renal function Code(s): R80.9 - PROTEINURIA, UNSPECIFIED (10) Hypertriglyceridemia Assessment/Plan: Appreciate dialysis nurse consultation c/w Fenofibrate Code(s): E78.1 - PURE HYPERGLYCERIDEMIA (11) Thrombocythemia Assessment/Plan: plt now 917 seen by hemetology most likely reactive will continue to monitor Code(s): D47.3 - ESSENTIAL (HEMORRHAGIC) THROMBOCYTHEMIA Visit type - Emergency Visit Emergency Visit: Yes ED Registration Date: 03/22/19 Care time: The patient presented to the Emergency Department on the above date and was hospitalized for further evaluation of their emergent condition. - New Patient This patient is new to me today: No - Critical Care Critical Care patient: No - Discharge Referral Referred to [facility] Med P.C.: No
--- NOTE | 2019-04-02 07:51 | PN.GI ---
GI Progress Note Subjective: denies any complaints - states he is feeling well ; no fever / chills or abdominal pain tolerating diet - Objective Vital Signs: Vital Signs Temperature 98.4 F 04/02/19 06:00 Pulse Rate 75 04/02/19 06:00 Respiratory Rate 18 04/02/19 06:00 Blood Pressure 119/46 L 04/02/19 06:00 O2 Sat by Pulse Oximetry (%) 98 04/01/19 21:00 Constitutional: Well Nourished, No Distress, Calm Eyes: Yes: WNL HENT: Yes: WNL Neck: Yes: WNL Cardiovascular: Yes: WNL, Regular Rate and Rhythm Respiratory: Yes: WNL, Regular, CTA Bilaterally Gastrointestinal Inspection: Yes: WNL ...Auscultate: Yes: Normoactive Bowel Sounds Musculoskeletal: Yes: WNL Extremities: Yes: WNL Edema: No Labs: CBC, BMP 04/01/19 08:05 04/01/19 08:05 INR, PTT INR 0.93 (0.83-1.09) 03/23/19 11:50 Problem List - Problems (1) Acute pancreatitis Assessment/Plan: WBC came down today ; no fever reported ; spoke with ID started back on abx f/u cultures if develops fever or worsening leukocystosis plan to repeat imaging Code(s): K85.90 - ACUTE PANCREATITIS WITHOUT NECROSIS OR INFECTION, UNSP Qualifiers: Pancreatitis type: alcohol induced Acute pancreatitis complication: unspecified Qualified Code(s): K85.20 - Alcohol induced acute pancreatitis without necrosis or infection
[2019-04-02 09:37] LABS: HEMATOCRIT 30.9 % (35.4-49); HEMOGLOBIN 10.7 GM/dL (11.7-16.9); LYMPH % 14.5 % (8-40); MCH 33.5 pg (25.7-33.7); MCHC 34.7 g/dl (32.0-35.9); MEAN CELL VOLUME 96.6 fl (80-96); MEAN PLT VOLUME 7.7 fl (7.5-11.1); MONO % 44.5 % (3.8-10.2); PLATELET COUNT 917 K/MM3 (134-434); RDW 16.5 % (11.9-15.9)
[2019-04-02 10:07] LABS: ANISOCYTOSIS 0; MACROCYTOSIS 0; PLATELET ESTIMATE INCREASED
[2019-04-02 10:12] LABS: ALBUMIN 3.4 g/dl (3.4-5.0); BILIRUBIN,TOTAL 0.9 mg/dL (0.2-1); BLOOD UREA NITROGEN 11.3 mg/dL (7-18); CALCIUM 9.5 mg/dL (8.5-10.1); CREATININE 0.9 mg/dL (0.55-1.3); MAGNESIUM 2.3 mg/dL (1.8-2.4); POTASSIUM 4.8 mmol/L (3.5-5.1); TOT PROT 6.7 g/dl (6.4-8.2)
[2019-04-02] MEDS ORDERED: PT OWN MED DRAWER 7, Y5N ONE ×2 (10:49→21:05)
[2019-04-02] MEDS: HEPARIN NA (PORCINE) 5,000 UNITS/ML 1ML VIAL SQ SCH ×2 (10:52→21:21)
[2019-04-02] MEDS: FENOFIBRIC ACID 45 MG CAP PO SCH (10:52)
--- NOTE | 2019-04-02 11:58 | PN ---
Progress Note (short form) - Note Progress Note: Attending Surgeon Seen in f/u; tolerating a diet and w/o pain Last Vital Signs Temp Pulse Resp BP Pulse Ox 98.4 F 75 18 119/46 L 98 04/02/19 06:00 04/02/19 06:00 04/02/19 06:00 04/02/19 06:00 04/01/19 21:00 abdo-soft; flat and non tender. Laboratory Last Values WBC 11.0 K/mm3 (4.0-10.0) H 04/02/19 08:24 RBC 3.20 M/mm3 (4.00-5.60) L 04/02/19 08:24 Hgb 10.7 GM/dL (11.7-16.9) L 04/02/19 08:24 Hct 30.9 % (35.4-49) L 04/02/19 08:24 MCV 96.6 fl (80-96) H 04/02/19 08:24 MCH 33.5 pg (25.7-33.7) 04/02/19 08:24 MCHC 34.7 g/dl (32.0-35.9) 04/02/19 08:24 RDW 16.5 % (11.9-15.9) H 04/02/19 08:24 Plt Count 917 K/MM3 (134-434) H 04/02/19 08:24 MPV 7.7 fl (7.5-11.1) 04/02/19 08:24 Absolute Neuts (auto) 4.5 K/mm3 (1.5-8.0) 04/02/19 08:24 Total Counted 100 04/01/19 08:05 Neutrophils % 41.0 % (42.8-82.8) L D 04/02/19 08:24 Neutrophils % (Manual) 56.0 % (42.8-82.8) 04/02/19 08:24 Band Neutrophils % 1.0 % 04/02/19 08:24 Lymphocytes % 14.5 % (8-40) D 04/02/19 08:24 Lymphocytes % (Manual) 24.0 % (8-40) 04/02/19 08:24 Monocytes % 44.5 % (3.8-10.2) H D 04/02/19 08:24 Monocytes % (Manual) 11 % (3.8-10.2) H 04/02/19 08:24 Eosinophils % 0.0 % (0-4.5) D 04/02/19 08:24 Eosinophils % (Manual) 1.0 % (0-4.5) 04/02/19 08:24 Basophils % 0.0 % (0-2.0) 04/02/19 08:24 Basophils % (Manual) 2.0 % (0-2.0) D 04/02/19 08:24 Myelocytes % (Man) 1 % (0-2) D 04/02/19 08:24 Promyelocytes % (Man) 0 % (0-2) 04/02/19 08:24 Blast Cells % (Manual) 0 % (0-0) 04/02/19 08:24 Nucleated RBC % 0 % (0-0) 04/02/19 08:24 Metamyelocytes 3 % (0-2) H D 04/02/19 08:24 Hypochromia 0 04/02/19 08:24 Platelet Estimate Increased 04/02/19 08:24 Platelet Comment Present 03/31/19 08:58 Platelet Comment Giant platelets 04/01/19 08:05 Polychromasia 0 04/02/19 08:24 Poikilocytosis 1+ 04/02/19 08:24 Basophilic Stippling 1+ 03/23/19 11:50 Anisocytosis 0 04/02/19 08:24 Microcytosis 0 04/02/19 08:24 Macrocytosis 0 04/02/19 08:24 Spherocytes 1+ 04/01/19 08:05 Target Cells 1+ 04/01/19 08:05 Tear Drop Cells 1+ 03/31/19 08:58 Ovalocytes 1+ 04/01/19 08:05 Stomatocytes 1+ 03/29/19 06:30 Schistocytes 1+ 04/02/19 08:24 PT with INR 11.00 SEC (9.7-13.0) 03/23/19 11:50 INR 0.93 (0.83-1.09) 03/23/19 11:50 Sodium 136 mmol/L (136-145) 04/02/19 08:24 Potassium 4.8 mmol/L (3.5-5.1) 04/02/19 08:24 Chloride 100 mmol/L (98-107) 04/02/19 08:24 Carbon Dioxide 28 mmol/L (21-32) 04/02/19 08:24 Anion Gap 7 MMOL/L (8-16) L 04/02/19 08:24 BUN 11.3 mg/dL (7-18) 04/02/19 08:24 Creatinine 0.9 mg/dL (0.55-1.3) 04/02/19 08:24 Est GFR (CKD-EPI)AfAm 117.47 04/02/19 08:24 Est GFR (CKD-EPI)NonAf 101.35 04/02/19 08:24 POC Glucometer 130 UNITS (80-120) 04/02/19 11:47 Random Glucose 132 mg/dL (74-106) H 04/02/19 08:24 Hemoglobin A1c % 6.3 % (4.2-6.3) 03/23/19 11:50 Lactic Acid 0.8 mmol/L (0.4-2.0) 03/31/19 08:58 Calcium 9.5 mg/dL (8.5-10.1) 04/02/19 08:24 Phosphorus 3.6 mg/dL (2.5-4.9) 03/28/19 05:30 Magnesium 2.3 mg/dL (1.8-2.4) 04/02/19 08:24 Total Bilirubin 0.9 mg/dL (0.2-1) 04/02/19 08:24 AST 44 U/L (15-37) H 04/02/19 08:24 ALT 93 U/L (13-61) H 04/02/19 08:24 Alkaline Phosphatase 141 U/L (45-117) H 04/02/19 08:24 Creatine Kinase 190 U/L (26-308) 03/22/19 17:45 Creatine Kinase Index 1.0 % (0.0-5.0) 03/22/19 17:45 CK-MB (CK-2) 1.9 ng/mL (0.5-3.6) 03/22/19 17:45 Total Protein 6.7 g/dl (6.4-8.2) 04/02/19 08:24 Albumin 3.4 g/dl (3.4-5.0) 04/02/19 08:24 Triglycerides 167 mg/dL (0-150) H 03/30/19 07:30 Cholesterol 285 mg/dL (50-200) H 03/30/19 07:30 Total LDL Cholesterol 198 mg/dL (5-100) H 03/30/19 07:30 HDL Cholesterol 44 mg/dL (40-60) 03/30/19 07:30 Lipase 795 U/L (73-393) H 04/02/19 08:24 Urine Color Dk yellow 03/23/19 14:15 Urine Appearance Clear 03/23/19 14:15 Urine pH 8.0 (5.0-8.0) D 03/23/19 14:15 Ur Specific [place] 1.016 (1.010-1.035) 03/23/19 14:15 Urine Protein 1+ (NEGATIVE) H 03/23/19 14:15 Urine Glucose (UA) Negative (NEGATIVE) 03/23/19 14:15 Urine Ketones 2+ (NEGATIVE) H 03/23/19 14:15 Urine Blood Trace (NEGATIVE) 03/23/19 14:15 Urine Nitrite Negative (NEGATIVE) 03/23/19 14:15 Urine Bilirubin 1+ (NEGATIVE) H 03/23/19 14:15 Urine Urobilinogen 2.0 mg/dL (0.2-1.0) 03/23/19 14:15 Ur Leukocyte Esterase Negative (NEGATIVE) 03/23/19 14:15 Urine WBC (Auto) 1 /hpf (0-5) 03/23/19 14:15 Urine RBC (Auto) 4 /hpf (0-4) 03/23/19 14:15 Urine Casts (Auto) 4 /lpf (0-8) 03/23/19 14:15 U Pathogenic Cast Auto None seen /lpf (NEGATIVE) 03/22/19 10:52 U Epithel Cells (Auto) 2.3 /HPF (0-5/HPF) 03/23/19 14:15 Urine Bacteria (Auto) 4.6 /hpf (NEGATIVE) 03/23/19 14:15 Stool Occult Blood Positive (NEGATIVE) 03/24/19 07:40 C. trachomatis (DEBBIE) Negative (Negative) 03/22/19 15:18 Hep A IgM Ab Confirm Negative (Negative) 03/24/19 05:35 Hepatitis A Ab Total Positive (Negative) H 03/24/19 05:35 Hep Bs Antigen Negative (Negative) 03/24/19 05:35 Hep Bs Antibody Reactive (.) 03/24/19 05:35 Hep Bs Antibody, Quant 50.4 mIU/mL (Immunity>9.9) 03/24/19 05:35 Hep B Core Total Ab Negative (Negative) 03/24/19 05:35 Hep B Core IgM Ab Negative (Negative) 03/24/19 05:35 Hepatitis Be Antibody Negative (Negative) 03/24/19 05:35 Hepatitis Be Antigen Negative (Negative) 03/24/19 05:35 HCV Quantitation Hcv not detected IU/mL (.) 03/24/19 05:35 HCV RNA log copies/mL TNP 03/24/19 05:35 N. gonorrhoeae (DEBBIE) Negative (Negative) 03/22/19 15:18 IMP: improving PLAN: Continue present tx.; watch for increased WBC/temp to trigger IR intervention and repeat imaging as needed.
--- NOTE | 2019-04-02 13:11 | PN ---
Progress Note, Physician History of Present Illness: Pt remains stable, afebrile, without complaints. Hospital employee translated. - Current Medication List Current Medications: Active Medications Dextrose (D50w (Vial) -) 25 gm IVPUSH Q6H PRN PRN Reason: HYPOGLYCEMIA Fenofibric Acid (Trilipix -) 45 mg PO DAILY [facility] Last Admin: 04/02/19 10:52 Dose: 45 mg Heparin Sodium (Porcine) (Heparin -) 5,000 unit SQ BID [facility] Last Admin: 04/02/19 10:52 Dose: 5,000 unit Imipenem/Cilastatin Sodium 500 (mg/ Sodium Chloride) 100 mls @ 100 mls/hr IVPB Q6H-IV [facility]; Protocol Last Admin: 04/02/19 10:52 Dose: 100 mls/hr Insulin Aspart (Novolog Vial Sliding Scale -) 1 vial SQ ACHS [facility]; Protocol Last Admin: 04/02/19 11:49 Dose: Not Given - Objective Vital Signs: Vital Signs Temperature 98.9 F 04/02/19 10:00 Pulse Rate 93 H 04/02/19 10:00 Respiratory Rate 18 04/02/19 10:00 Blood Pressure 116/64 04/02/19 10:00 O2 Sat by Pulse Oximetry (%) 98 04/01/19 21:00 Constitutional: Yes: No Distress, Calm Cardiovascular: Yes: Regular Rate and Rhythm Respiratory: Yes: CTA Bilaterally Gastrointestinal: Yes: Normal Bowel Sounds, Soft Genitourinary: Yes: WNL Extremities: Yes: WNL Integumentary: Yes: WNL Neurological: Yes: Alert, Oriented Labs: CBC, BMP 04/02/19 08:24 04/02/19 08:24 INR, PTT INR 0.93 (0.83-1.09) 03/23/19 11:50 Microbiology 03/30/19 13:30 Blood - Peripheral Venous Blood Culture - Preliminary NO GROWTH OBTAINED AFTER 48 HOURS, INCUBATION TO CONTINUE FOR 3 DAYS. 03/30/19 13:25 Blood - Peripheral Venous Blood Culture - Preliminary NO GROWTH OBTAINED AFTER 48 HOURS, INCUBATION TO CONTINUE FOR 3 DAYS. 03/30/19 20:00 Urine - Urine Clean Catch Urine Culture - Final NO GROWTH OBTAINED 03/22/19 15:18 Urine - Urine Clean Catch Urine Culture - Final Normal Urogenital [place] - ....Imaging Cat Scan: Report Reviewed Problem List - Problems (1) Acute pancreatitis Code(s): K85.90 - ACUTE PANCREATITIS WITHOUT NECROSIS OR INFECTION, UNSP Qualifiers: Pancreatitis type: alcohol induced Acute pancreatitis complication: unspecified Qualified Code(s): K85.20 - Alcohol induced acute pancreatitis without necrosis or infection (2) Alcohol withdrawal Code(s): F10.239 - ALCOHOL DEPENDENCE WITH WITHDRAWAL, UNSPECIFIED Qualifiers: Complication of substance-induced condition: with unspecified complication Qualified Code(s): F10.239 - Alcohol dependence with withdrawal, unspecified (3) Elevated lipase Code(s): R74.8 - ABNORMAL LEVELS OF OTHER SERUM ENZYMES (4) Necrosis of pancreas Code(s): K86.89 - OTHER SPECIFIED DISEASES OF PANCREAS (5) Thrombocytopenia Code(s): D69.6 - THROMBOCYTOPENIA, UNSPECIFIED Assessment/Plan - CT reveals collection with faint enhancement in pancreatic tail, can not r/o infection - Imipenem restarted yesterday - leukocytosis improved, platelets decreased from yesterday, lipase trending down -- Surgery/GI following, case d/w Dr. Merritt -- assess for need of drainage of collection -- recent blood cultures negative so far --monitor wbc/platelets, lipase Pt currently stable, without complaints
[2019-04-03] MEDS: IMIPENEM/CILASTATIN SODIUM 500 MG in SODIUM CHLORIDE 100 ML IVPB SCH ×4 (02:49→21:25)
[2019-04-03] MEDS: INSULIN SLIDING SCALE (NOVOLOG) 1 VIAL SQ SCH ×4 (06:56→21:26)
[2019-04-03 08:17] LABS: BASO % 1.9 % (0-2.0); EOS % 1.2 % (0-4.5); HEMATOCRIT 29.1 % (35.4-49); LYMPH % 27.3 % (8-40); MCH 33.2 pg (25.7-33.7); MCHC 34.4 g/dl (32.0-35.9); MEAN CELL VOLUME 96.5 fl (80-96); MEAN PLT VOLUME 7.6 fl (7.5-11.1); MONO % 9.9 % (3.8-10.2); NEUT % 59.7 % (42.8-82.8); PLATELET COUNT 880 K/MM3 (134-434); RBC 3.02 M/mm3 (4.00-5.60); RDW 16.4 % (11.9-15.9); WHITE BLOOD COUNT 9.8 K/mm3 (4.0-10.0)
[2019-04-03 08:34] LABS: ALBUMIN 3.3 g/dl (3.4-5.0); BILIRUBIN,TOTAL 0.6 mg/dL (0.2-1); BLOOD UREA NITROGEN 12.4 mg/dL (7-18); CALCIUM 9.3 mg/dL (8.5-10.1); CREATININE 0.9 mg/dL (0.55-1.3); MAGNESIUM 2.1 mg/dL (1.8-2.4); POTASSIUM 4.1 mmol/L (3.5-5.1); TOT PROT 6.3 g/dl (6.4-8.2)
[2019-04-03] MEDS ORDERED: PT OWN MED DRAWER 7, Y5N ONE ×2 (09:29→16:50)
[2019-04-03] MEDS: FENOFIBRIC ACID 45 MG CAP PO SCH (10:25)
[2019-04-03] MEDS: HEPARIN NA (PORCINE) 5,000 UNITS/ML 1ML VIAL SQ SCH (10:25)
[2019-04-03 10:36] LABS: ANISOCYTOSIS 1+; MACROCYTOSIS 1+; PLATELET ESTIMATE INCREASED
--- NOTE | 2019-04-03 11:37 | PN ---
Progress Note, Physician History of Present Illness: patient with multiple issues wbc started to go up abx were restarted wbc trending down surgery on case - Current Medication List Current Medications: Active Medications Dextrose (D50w (Vial) -) 25 gm IVPUSH Q6H PRN PRN Reason: HYPOGLYCEMIA Fenofibric Acid (Trilipix -) 45 mg PO DAILY [facility] Last Admin: 04/03/19 10:25 Dose: 45 mg Heparin Sodium (Porcine) (Heparin -) 5,000 unit SQ BID [facility] Last Admin: 04/03/19 10:25 Dose: 5,000 unit Imipenem/Cilastatin Sodium 500 (mg/ Sodium Chloride) 100 mls @ 100 mls/hr IVPB Q6H-IV [facility]; Protocol Last Admin: 04/03/19 10:25 Dose: 100 mls/hr Insulin Aspart (Novolog Vial Sliding Scale -) 1 vial SQ ACHS [facility]; Protocol Last Admin: 04/03/19 06:56 Dose: 8 units - Objective Vital Signs: Vital Signs Temperature 98.6 F 04/03/19 10:37 Pulse Rate 77 04/03/19 10:37 Respiratory Rate 22 H 04/03/19 10:37 Blood Pressure 121/67 04/03/19 10:37 O2 Sat by Pulse Oximetry (%) 100 04/02/19 09:00 Constitutional: Yes: No Distress, Calm Cardiovascular: Yes: S1, S2 Respiratory: Yes: Regular, CTA Bilaterally Gastrointestinal: Yes: Normal Bowel Sounds, Soft Musculoskeletal: Yes: WNL Extremities: Yes: WNL Neurological: Yes: Alert, Oriented Psychiatric: Yes: Alert, Oriented Labs: CBC, BMP 04/03/19 07:15 04/03/19 07:15 INR, PTT INR 0.93 (0.83-1.09) 03/23/19 11:50 Assessment/Plan Problem List - Problems (1) Hypertriglyceridemia Code(s): E78.1 - PURE HYPERGLYCERIDEMIA (2) Acute pancreatitis Code(s): K85.90 - ACUTE PANCREATITIS WITHOUT NECROSIS OR INFECTION, UNSP Qualifiers: Pancreatitis type: alcohol induced Acute pancreatitis complication: unspecified Qualified Code(s): K85.20 - Alcohol induced acute pancreatitis without necrosis or infection (3) Necrosis of pancreas Code(s): K86.89 - OTHER SPECIFIED DISEASES OF PANCREAS (4) Thrombocytopenia Code(s): D69.6 - THROMBOCYTOPENIA, UNSPECIFIED (5) Elevated lipase Code(s): R74.8 - ABNORMAL LEVELS OF OTHER SERUM ENZYMES (6) Proteinuria Code(s): R80.9 - PROTEINURIA, UNSPECIFIED (7) Alcohol withdrawal Code(s): F10.239 - ALCOHOL DEPENDENCE WITH WITHDRAWAL, UNSPECIFIED Qualifiers: Complication of substance-induced condition: with unspecified complication Qualified Code(s): F10.239 - Alcohol dependence with withdrawal, unspecified (8) Hypocalcemia Code(s): E83.51 - HYPOCALCEMIA (9) Hypokalemia Code(s): E87.6 - HYPOKALEMIA (10) Hyponatremia Code(s): E87.1 - HYPO-OSMOLALITY AND HYPONATREMIA (11) Mass of soft tissue of upper arm Code(s): R22.30 - LOCALIZED SWELLING, MASS AND LUMP, UNSPECIFIED UPPER LIMB plan continue abx monitor wbc again i think will need imaging studies rest as per the team
--- NOTE | 2019-04-03 14:24 | PN ---
Progress Note (short form) - Note Progress Note: GI f/u Started on abx on 04/01 for WBC of 13K WBC has since gone down Patient without abdominal pain and tolerating PO AFfor several days Vital Signs Temp 98.6 F 04/03/19 14:07 Pulse 91 H 04/03/19 14:07 Resp 20 04/03/19 14:07 BP 112/65 04/03/19 14:07 Pulse Ox 100 04/02/19 09:00 NAD Abd soft NT ND Labs reviewed CBC, BMP 04/03/19 07:15 04/03/19 07:15 Impression: Acute pancreatitis with small areas of necrosis AF for several days Unclear how significant the WBC of 13K on 04/01 was, now back down Would discuss with ID discontinuing abx again -- clinically he looks so well, tolerating PO - may be able to follow up closely as an outpatient
--- NOTE | 2019-04-03 14:25 | PN ---
Progress Note, Physician History of Present Illness: Patient remains hemodynamically stable and offer no complaints. WBC normalized, PLT downtrending 917>>880 lipase remains elevated 795 >> 877. ID recommends repeat imaging. - Current Medication List Current Medications: Active Medications Dextrose (D50w (Vial) -) 25 gm IVPUSH Q6H PRN PRN Reason: HYPOGLYCEMIA Fenofibric Acid (Trilipix -) 45 mg PO DAILY [facility] Last Admin: 04/03/19 10:25 Dose: 45 mg Heparin Sodium (Porcine) (Heparin -) 5,000 unit SQ BID [facility] Last Admin: 04/03/19 10:25 Dose: 5,000 unit Imipenem/Cilastatin Sodium 500 (mg/ Sodium Chloride) 100 mls @ 100 mls/hr IVPB Q6H-IV [facility]; Protocol Last Admin: 04/03/19 10:25 Dose: 100 mls/hr Insulin Aspart (Novolog Vial Sliding Scale -) 1 vial SQ ACHS [facility]; Protocol Last Admin: 04/03/19 13:02 Dose: Not Given - Objective Vital Signs: Vital Signs Temperature 98.6 F 04/03/19 14:07 Pulse Rate 91 H 04/03/19 14:07 Respiratory Rate 20 04/03/19 14:07 Blood Pressure 112/65 04/03/19 14:07 O2 Sat by Pulse Oximetry (%) 100 04/02/19 09:00 Constitutional: Yes: Well Nourished, No Distress, Calm Eyes: Yes: Other (right eye deformity) HENT: Yes: Atraumatic, Normocephalic Neck: Yes: Supple, Trachea Midline Cardiovascular: Yes: Regular Rate and Rhythm Respiratory: Yes: Regular, CTA Bilaterally Gastrointestinal: Yes: Normal Bowel Sounds, Soft ...Rectal Exam: Yes: Deferred Musculoskeletal: Yes: WNL Extremities: Yes: WNL Edema: No Peripheral Pulses WNL: Yes Peripheral Pulses: Left Radial: 2+, Right Radial: 2+, Left Doralis Pedis: 2+, Right Dorsalis Pedis: 2+ Integumentary: Yes: WNL Neurological: Yes: Alert, Oriented ...Motor Strength: WNL Psychiatric: Yes: Alert, Oriented Labs: CBC, BMP 04/03/19 07:15 04/03/19 07:15 INR, PTT INR 0.93 (0.83-1.09) 03/23/19 11:50 Impression/Plan Impression/Plan: 48 year old male with a significant past medical history of ETOH abuse. He reports diffuse abdominal pain, mostly to the upper quadrants, constant and sharp in quality. He notes anorexia and decreased PO intake. The patient also reports upper extremity tremors. During hospital stay, labs revealed elevated triglycerides at 1400, elevated cholesterol levels with elevated liver enzymes and imaging consistent with acute pancreatitis. He was transferred to the ICU for an insulin drip. patient now transferred out to [facility] but is being closed observed due to elevated Lipase and PLT counts. 1) Abnormal liver function tests appreciate GI consultation Monitor LFTs, trending up Avoid hepatotoxic agents Code(s): R94.5 - ABNORMAL RESULTS OF LIVER FUNCTION STUDIES (2) Acute pancreatitis repeat MRI ordered afebrile, if spikes will repeat imaging as speak with Dr Lai regarding drainage Appreciate Surgery consultation lipase with slight up tick today 04/03 fingerstick AC/HS + insulin SS Code(s): K85.90 - ACUTE PANCREATITIS WITHOUT NECROSIS OR INFECTION, UNSP Qualifiers: Pancreatitis type: alcohol induced Acute pancreatitis complication: unspecified Qualified Code(s): K85.20 - Alcohol induced acute pancreatitis without necrosis or infection (3) Elevated lipase lipase 795 --> 877 continue to trend Code(s): R74.8 - ABNORMAL LEVELS OF OTHER SERUM ENZYMES (4) Necrosis of pancreas WBC normaLIZED CONTINUE imipenem continue to monitor Code(s): K86.89 - OTHER SPECIFIED DISEASES OF PANCREAS (5) Prophylactic measure FEN low fat low chol diet monitor electrolytes and replete PRN DVT ppx: heparin sq (6)Dispo full code discharge planning --PT HAS NO MEDICAL COVERAGE OR PCP (HE SHOULD BE REFERRED TO [facility] FOR F/U AFTER DISCHARGE) Code(s): Z29.9 - ENCOUNTER FOR PROPHYLACTIC MEASURES, UNSPECIFIED (7) Hypertriglyceridemia Appreciate nursing home physician consultation c/w Fenofibrate Code(s): E78.1 - PURE HYPERGLYCERIDEMIA (8) Thrombocythemia plt downtrending 917--> 880 seen by hematology -most likely reactive will continue to trend Code(s): D47.3 - ESSENTIAL (HEMORRHAGIC) THROMBOCYTHEMIA Visit type - Emergency Visit Emergency Visit: Yes ED Registration Date: 03/22/19 Care time: The patient presented to the Emergency Department on the above date and was hospitalized for further evaluation of their emergent condition. - New Patient This patient is new to me today: Yes Date on this admission: 04/03/19 - Critical Care Critical Care patient: No - Discharge Referral Referred to [facility] Med [facility] Yes
[2019-04-03] MEDS ORDERED: INSULIN (NOVOLOG) ASPART 100 UNITS/ML 10ML VIAL ONE (21:08)
[2019-04-04] MEDS: IMIPENEM/CILASTATIN SODIUM 500 MG in SODIUM CHLORIDE 100 ML IVPB SCH ×2 (03:38→10:24)
[2019-04-04] MEDS: INSULIN SLIDING SCALE (NOVOLOG) 1 VIAL SQ SCH ×2 (06:47→10:31)
[2019-04-04 08:40] LABS: BASO % 2.2 % (0-2.0); EOS % 1.1 % (0-4.5); HEMATOCRIT 31.2 % (35.4-49); HEMOGLOBIN 10.6 GM/dL (11.7-16.9); LYMPH % 21.6 % (8-40); MCH 32.8 pg (25.7-33.7); MCHC 34.1 g/dl (32.0-35.9); MEAN CELL VOLUME 96.1 fl (80-96); MEAN PLT VOLUME 7.6 fl (7.5-11.1); MONO % 9.9 % (3.8-10.2); NEUT % 65.2 % (42.8-82.8); PLATELET COUNT 910 K/MM3 (134-434); RBC 3.25 M/mm3 (4.00-5.60); RDW 16.9 % (11.9-15.9); WHITE BLOOD COUNT 12.4 K/mm3 (4.0-10.0)
[2019-04-04 09:02] LABS: AMYLASE 78 U/L (25-115); GAMMA GLUTAMYL TRANSPEPTIDASE 332 U/L (5-85); LIPASE 878 U/L (73-393)
[2019-04-04 09:05] LABS: ALBUMIN 3.5 g/dl (3.4-5.0); BILIRUBIN,TOTAL 0.7 mg/dL (0.2-1); BLOOD UREA NITROGEN 12.1 mg/dL (7-18); CALCIUM 9.9 mg/dL (8.5-10.1); CREATININE 0.8 mg/dL (0.55-1.3); MAGNESIUM 2.2 mg/dL (1.8-2.4); POTASSIUM 4.6 mmol/L (3.5-5.1); TOT PROT 6.7 g/dl (6.4-8.2)
[2019-04-04] MEDS ORDERED: PT OWN MED DRAWER 7, Y5N ONE (10:14)
[2019-04-04] MEDS: FENOFIBRIC ACID 45 MG CAP PO SCH (10:24)
[2019-04-04] MEDS ORDERED: INSULIN (NOVOLOG) ASPART 100 UNITS/ML 10ML VIAL ONE (10:30)
[2019-04-04 10:39] VITALS: BP 105/69; PULSE 79; TEMP 98.4
[2019-04-04 10:40] LABS: ANISOCYTOSIS 1+; MACROCYTOSIS 0; PLATELET ESTIMATE INCREASED
--- NOTE | 2019-04-04 11:12 | PN ---
Progress Note, Physician History of Present Illness: patient wants to go home gi note noted patient tolerating diet will stop abx again and monitor - Current Medication List Current Medications: Active Medications Dextrose (D50w (Vial) -) 25 gm IVPUSH Q6H PRN PRN Reason: HYPOGLYCEMIA Fenofibric Acid (Trilipix -) 45 mg PO DAILY [facility] Last Admin: 04/04/19 10:24 Dose: 45 mg Imipenem/Cilastatin Sodium 500 (mg/ Sodium Chloride) 100 mls @ 100 mls/hr IVPB Q6H-IV [facility]; Protocol Last Admin: 04/04/19 10:24 Dose: 100 mls/hr Insulin Aspart (Novolog Vial Sliding Scale -) 1 vial SQ ACHS [facility]; Protocol Last Admin: 04/04/19 10:31 Dose: 4 units - Objective Vital Signs: Vital Signs Temperature 98.4 F 04/04/19 10:00 Pulse Rate 79 04/04/19 10:00 Respiratory Rate 18 04/04/19 10:00 Blood Pressure 105/69 04/04/19 10:00 O2 Sat by Pulse Oximetry (%) 98 04/03/19 21:00 Constitutional: Yes: No Distress, Calm Cardiovascular: Yes: S1, S2 Respiratory: Yes: Regular, CTA Bilaterally Gastrointestinal: Yes: Normal Bowel Sounds, Soft Musculoskeletal: Yes: WNL Extremities: Yes: WNL Neurological: Yes: Alert, Oriented Psychiatric: Yes: Alert, Oriented Labs: CBC, BMP 04/04/19 08:15 04/04/19 08:15 INR, PTT INR 0.93 (0.83-1.09) 03/23/19 11:50 Assessment/Plan Problem List - Problems (1) Hypertriglyceridemia Code(s): E78.1 - PURE HYPERGLYCERIDEMIA (2) Acute pancreatitis Code(s): K85.90 - ACUTE PANCREATITIS WITHOUT NECROSIS OR INFECTION, UNSP Qualifiers: Pancreatitis type: alcohol induced Acute pancreatitis complication: unspecified Qualified Code(s): K85.20 - Alcohol induced acute pancreatitis without necrosis or infection (3) Necrosis of pancreas Code(s): K86.89 - OTHER SPECIFIED DISEASES OF PANCREAS (4) Thrombocytopenia Code(s): D69.6 - THROMBOCYTOPENIA, UNSPECIFIED (5) Elevated lipase Code(s): R74.8 - ABNORMAL LEVELS OF OTHER SERUM ENZYMES (6) Proteinuria Code(s): R80.9 - PROTEINURIA, UNSPECIFIED (7) Alcohol withdrawal Code(s): F10.239 - ALCOHOL DEPENDENCE WITH WITHDRAWAL, UNSPECIFIED Qualifiers: Complication of substance-induced condition: with unspecified complication Qualified Code(s): F10.239 - Alcohol dependence with withdrawal, unspecified (8) Hypocalcemia Code(s): E83.51 - HYPOCALCEMIA (9) Hypokalemia Code(s): E87.6 - HYPOKALEMIA (10) Hyponatremia Code(s): E87.1 - HYPO-OSMOLALITY AND HYPONATREMIA (11) Mass of soft tissue of upper arm Code(s): R22.30 - LOCALIZED SWELLING, MASS AND LUMP, UNSPECIFIED UPPER LIMB plan patient is going to sign out ama discussed in detail about the importance of monitoring will need repeat imaging studies also needs to be followed up and wbc monitored also told him that if starts becoming sick to come to the hospital
--- NOTE | 2019-04-04 11:15 | DS ---
Physical Exam: SUBJECTIVE: Patient seen and examined. wants to go home. refusing mri, refusing further treatment. [facility] med[facility]. [facility] an [facility]: [phone]. [facility]: $150.00 is the cost (he is aware). I asked the clinic to consider lowering the cost for this initial visit. april 06 @ 2pm. Dr Gomez. OBJECTIVE: patient has the capacity to make his own medical decisions. wants to go home and does not want any further imaging here (has mri ordered) wants to follow up as an outpatient. made an appt for him to go to the clinic on april 06 made his aware that his lipase is elevated as well as his WBC. discussed with ID, will send him home on augmentin 500 bid x 1 week he agrees to return to the ED if has worsening abdominal pain, nausea, or vomiting. abstinence from alcohol discussed Vital Signs Period Temp Pulse Resp BP Sys/Garcia Pulse Ox Last 24 Hr 98.4 F-99 F 77-91 18-20 105-116/63-73 98 PHYSICAL EXAM GENERAL: The patient is awake, alert, and fully oriented, in no acute distress. HEAD: Normal with no signs of trauma. EYES: PERRL, extraocular movements intact, sclera anicteric, conjunctiva clear. No ptosis. ENT: Ears normal, nares patent, oropharynx clear without exudates, moist mucous membranes. NECK: Trachea midline, full range of motion, supple. LUNGS: Breath sounds equal, clear to auscultation bilaterally HEART: Regular rate and rhythm ABDOMEN: + bowel sounds, soft, non distended EXTREMITIES: 2+ pulses, warm, well-perfused, no edema. NEUROLOGICAL: Normal speech, gait not observed. PSYCH: Normal mood, normal affect. SKIN: Warm, dry, normal turgor, no rashes or lesions noted LABS Laboratory Results - last 24 hr 04/03/19 04/03/19 04/03/19 12:12 17:19 21:21 WBC RBC Hgb Hct MCV MCH MCHC RDW Plt Count MPV Absolute Neuts (auto) Neutrophils % Lymphocytes % Monocytes % Eosinophils % Basophils % Nucleated RBC % ESR Sodium Potassium Chloride Carbon Dioxide Anion Gap BUN Creatinine Est GFR (CKD-EPI)AfAm Est GFR (CKD-EPI)NonAf POC Glucometer 123 154 160 Random Glucose Calcium Magnesium Total Bilirubin GGT AST ALT Alkaline Phosphatase Total Protein Albumin Total Amylase Lipase 04/04/19 04/04/19 04/04/19 06:46 08:15 08:15 WBC 12.4 H RBC 3.25 L Hgb 10.6 L Hct 31.2 L MCV 96.1 H MCH 32.8 MCHC 34.1 RDW 16.9 H Plt Count 910 H MPV 7.6 Absolute Neuts (auto) 8.1 H Neutrophils % 65.2 Lymphocytes % 21.6 D Monocytes % 9.9 Eosinophils % 1.1 Basophils % 2.2 H Nucleated RBC % 0 ESR Sodium 140 Potassium 4.6 Chloride 104 Carbon Dioxide 28 Anion Gap 8 BUN 12.1 Creatinine 0.8 Est GFR (CKD-EPI)AfAm 123.29 Est GFR (CKD-EPI)NonAf 106.38 POC Glucometer 127 Random Glucose 145 H Calcium 9.9 Magnesium 2.2 Total Bilirubin 0.7 GGT AST 32 ALT 75 H Alkaline Phosphatase 158 H Total Protein 6.7 Albumin 3.5 Total Amylase Lipase 04/04/19 04/04/19 04/04/19 08:15 08:15 10:28 WBC RBC Hgb Hct MCV MCH MCHC RDW Plt Count MPV Absolute Neuts (auto) Neutrophils % Lymphocytes % Monocytes % Eosinophils % Basophils % Nucleated RBC % ESR 51 H Sodium Potassium Chloride Carbon Dioxide Anion Gap BUN Creatinine Est GFR (CKD-EPI)AfAm Est GFR (CKD-EPI)NonAf POC Glucometer 167 Random Glucose Calcium Magnesium Total Bilirubin GGT 332 H AST ALT Alkaline Phosphatase Total Protein Albumin Total Amylase 78 Lipase 878 H HOSPITAL COURSE: Date of Admission:03/22/19 Date of Discharge: 04/04/19 Minutes to complete discharge: 60 Discharge Summary Problems reviewed: Yes Reason For Visit: ALCOHL WITHDRAWAL,ACUTE APPENDICITIS,HYPOKALEMIA Current Active Problems Abnormal liver function tests (Acute) Acute pancreatitis (Acute) Alcohol withdrawal (Acute) Elevated lipase (Acute) Hypertriglyceridemia (Acute) Hypocalcemia (Acute) Hypokalemia (Acute) Hyponatremia (Acute) Mass of soft tissue of upper arm (Acute) Necrosis of pancreas (Acute) Prophylactic measure (Acute) Proteinuria (Acute) Thrombocythemia (Acute) Thrombocythemia with defect of distal extremity (Acute) Thrombocytopenia (Acute) Condition: Guarded - Instructions Diet, Activity, Other Instructions: Mr. Singletary: You will be sent home today. We have made an appointment for you to see: [facility]: usted carlenene olive bib. [facility]: [phone]. $150.00 is the cost. april 06 @ 2pm. Dr Gomez. New Medications: Augmentin 500mg DOS veces per day por olive semana Tripilix 45mg - olive ves por kurt. Estos es para el cholesterol Please repeat CBC/CMP as an outpatient. Referrals: Jose R Stone MD [Staff Physician] - (self pay: [facility]: usted tiene olive bib. [facility]: [phone]. [facility]: $150.00 is the cost april 06 @ 2pm. Dr Gomez. ) Disposition: AGAINST MEDICAL ADVICE - Home Medications Comprehensive Discharge Medication List: Ambulatory Orders Fenofibric Acid [Trilipix -] 45 mg PO DAILY #30 cap 03/29/19 Amox-Tr/K Cl [Augmentin - 500Mg Tablet] 1 tab PO BID #14 tab 04/04/19 Prescription Drug Monitoring Program (I-STOP) results: I-STOP not reviewed Problem List - Problems (1) Hypertriglyceridemia Code(s): E78.1 - PURE HYPERGLYCERIDEMIA (2) Acute pancreatitis Code(s): K85.90 - ACUTE PANCREATITIS WITHOUT NECROSIS OR INFECTION, UNSP Qualifiers: Pancreatitis type: alcohol induced Acute pancreatitis complication: unspecified Qualified Code(s): K85.20 - Alcohol induced acute pancreatitis without necrosis or infection (3) Necrosis of pancreas Code(s): K86.89 - OTHER SPECIFIED DISEASES OF PANCREAS (4) Thrombocytopenia Code(s): D69.6 - THROMBOCYTOPENIA, UNSPECIFIED (5) Elevated lipase Code(s): R74.8 - ABNORMAL LEVELS OF OTHER SERUM ENZYMES (6) Proteinuria Code(s): R80.9 - PROTEINURIA, UNSPECIFIED (7) Alcohol withdrawal Code(s): F10.239 - ALCOHOL DEPENDENCE WITH WITHDRAWAL, UNSPECIFIED Qualifiers: Complication of substance-induced condition: with unspecified complication Qualified Code(s): F10.239 - Alcohol dependence with withdrawal, unspecified (8) Hypocalcemia Code(s): E83.51 - HYPOCALCEMIA (9) Hypokalemia Code(s): E87.6 - HYPOKALEMIA (10) Hyponatremia Code(s): E87.1 - HYPO-OSMOLALITY AND HYPONATREMIA (11) Mass of soft tissue of upper arm Code(s): R22.30 - LOCALIZED SWELLING, MASS AND LUMP, UNSPECIFIED UPPER LIMB (12) Prophylactic measure Code(s): Z29.9 - ENCOUNTER FOR PROPHYLACTIC MEASURES, UNSPECIFIED This patient is new to me today: No Emergency Visit: Yes ED Registration Date: 03/22/19 Care time: The patient presented to the Emergency Department on the above date and was hospitalized for further evaluation of their emergent condition. Critical Care patient: No - Discharge Referral [facility]erred [facility] No
== END 2019-04-04 12:25 | disposition left against medical advice (07) | DRG 280 ==
LOC: JER 09:00 → JERBED 13:35 → J6S 15:40 → JICU 03-23 18:01 → J5S 03-27 18:21
PROVIDERS: ADMIT Internal Medicine; ATTEND Nurse Practitioner Family
DX: K70.30 Alcoholic cirrhosis of liver without ascites (principal); E78.5 Hyperlipidemia, unspecified; R63.0 Anorexia; F10.239 Alcohol dependence with withdrawal, unspecified; R73.9 Hyperglycemia, unspecified; D72.829 Elevated white blood cell count, unspecified; I10 Essential (primary) hypertension; R74.8 Abnormal levels of other serum enzymes; E87.6 Hypokalemia; R10.9 Unspecified abdominal pain; R11.2 Nausea with vomiting, unspecified; R00.1 Bradycardia, unspecified; K85.91 Acute pancreatitis with uninfected necrosis, unspecified; E87.1 Hypo-osmolality and hyponatremia; K86.89 Other specified diseases of pancreas; E83.51 Hypocalcemia; D69.6 Thrombocytopenia, unspecified; B19.10 Unspecified viral hepatitis B without hepatic coma; R80.9 Proteinuria, unspecified; K85.21 Alcohol induced acute pancreatitis with uninfected necrosis; R22.30 Localized swelling, mass and lump, unspecified upper limb; E78.1 Pure hyperglyceridemia; D64.9 Anemia, unspecified; R94.5 Abnormal results of liver function studies; D47.3 Essential (hemorrhagic) thrombocythemia; Z68.24 Body mass index [BMI] 24.0-24.9, adult
CPT/HCPCS: 36415; 71045-TC-FY; 74177-TC; 74183-TC; 76705-TC; 80048; 80053; 80061; 81003; 82040; 82150; 82272; 82308; 82310; 82550; 82553; 82962; 82977; 83036; 83605; 83690; 83721; 83735; 84100; 84478; 85025; 85610; 85651; 86317; 86704; 86706; 86707; 86708; 86709; 87040; 87086; 87340; 87491; 87522; 87591; 90732; 93005; 93010; 99282-25; A9579; G0009; J1644; J7030; Q9967